=== PATIENT | female | born 1950 | race Caucasian/White ===

== ENCOUNTER → 2016-07-10 | Outpatient (CLI) | payer OTHER ==
[~2016-07-10] MED LIST: ANT25 PEG; ANT25 PO; ATV/2 PO; ATV2 PO; BUPRTAB51 PO; HYDR-4322 PO; LAMO100T16 PO; ONDA4TAB9 PO
[2016-07-10 14:45] LABS: HEMATOCRIT 37.3 % (37-47); MEAN CORPUSCULAR HEMOGLOBIN 29.6 pg (25-34); MEAN CORPUSCULAR HGB CONC 34.9 g/dl (32-36); MEAN PLATELET VOLUME 8.9 fL (7.4-10.4); PLATELET COUNT 342 K/uL (130-400); RED BLOOD COUNT 4.39 M/uL (4.2-5.4); WHITE BLOOD COUNT 4.41 K/uL (4.8-10.8)
[2016-07-10 15:20] LABS: ALT/SGPT 60 U/L (12-78); AST/SGOT 49 U/L (15-37)
== END | disposition home or self-care (01) ==
LOC: C.LAB1850 12:40
PROVIDERS: ATTEND Internal Medicine
DX: R10.32 Left lower quadrant pain (principal)

== ENCOUNTER → 2016-07-30 | Outpatient (CLI) | payer OTHER ==
[~2016-07-30] MED LIST changes: +LAMO200T38 PO; +RIBO50TA4 PO
--- NOTE | 2016-07-30 13:51 | DIAGNOSTIC IMAGING REPORT ---
CT SCAN OF THE ABDOMEN AND PELVIS WITHOUT IV CONTRAST CLINICAL HISTORY: Left lower quadrant abdominal pain. COMPARISON STUDY: Abdominal CT dated 12/01/2015. TECHNIQUE: CT scan of the abdomen and pelvis is performed from the lung bases to the proximal femora. Images are reviewed in the axial, sagittal, and coronal planes. IV contrast was not administered for this examination as per the referring clinician. Note that the examination was performed in suboptimal fashion without oral and IV contrast. Automated dose control exposure was utilized. CT DOSE: 270.81 mGycm FINDINGS: Lung bases: The heart is normal in size and without pericardial effusion. Pacemaker leads are noted on the caramel cutter hand tomogram. The lung bases are clear. Liver: The unenhanced liver is normal in size, contour, and attenuation. There is no intrahepatic biliary ductal dilatation. Gallbladder: Unremarkable. Spleen: Normal in size and attenuation. Pancreas: Unremarkable. Adrenal glands: Unremarkable. Kidneys: The unenhanced kidneys are normal in size and without hydronephrosis. There are no renal calculi identified. There is no evidence of contour deforming renal mass lesion. Abdominal vasculature: The abdominal aorta is normal in course and caliber noting mild atherosclerotic calcification. Bowel: The small bowel and colon are normal in course and caliber. There is mild colonic diverticulosis without CT evidence of acute diverticulitis. Moderate colonic fecal retention is observed. The appendix is not identified and reported surgically absent. Peritoneum: There is no intraperitoneal free air or abdominal ascites. There is a small fat-containing umbilical hernia. Lymphadenopathy: None. Pelvic viscera: Although partially compressed, the bladder wall appears mildly thickened. The uterus is surgically absent. No adnexal lesion is seen. There are calcified flow was in the pelvis. A granuloma is noted in the left gluteal soft tissues. Skeletal structures: The skeletal structures are osteopenic. There are bilateral pars defects at L5 with 8 mm anterolisthesis and moderate degenerative change at L5-S1. No lytic or blastic lesions are seen. IMPRESSION: 1. Suboptimal examination without oral and IV contrast. 2. Although decompressed, the bladder appears mildly thick walled. Cortical clinically and with urinalysis for evidence of cystitis. 3. Mild colonic diverticulosis without CT evidence of acute diverticulitis. 4. Moderate constipation. 5. Additional findings as above. Electronically signed by: Johnie Guillermo M.D. 07/30/2016 1:50 PM Dictated Date/Time: 07/30/2016 1:44 PM
== END | disposition home or self-care (01) ==
LOC: C.CTS 13:02
PROVIDERS: ATTEND Physician Assistant
DX: R10.32 Left lower quadrant pain (principal); K59.00 Constipation, unspecified

== ENCOUNTER 2016-08-16 13:39 | Emergency (ER) | payer OTHER ==
[~2016-08-16] VITALS: Ht 152.4 cm; Wt 52.8 kg
[~2016-08-16 13:39] MED LIST changes: -ANT25 PEG; -ANT25 PO; -ATV2 PO; -BUPRTAB51 PO; -HYDR-4322 PO; -LAMO100T16 PO; -LAMO200T38 PO; -ONDA4TAB9 PO; -RIBO50TA4 PO
[2016-08-16 13:48] VITALS: TEMP 36.5; Ht 152.4 cm; Wt 52.8 kg
[2016-08-16] MEDS ORDERED: LORAZEPAM 2 MG/ML 1 ML VIAL IV STA (13:55)
[2016-08-16 14:12] VITALS: O2SAT 100
[2016-08-16 14:15] LABS: BASO % 0.5 %; BASO ABS # 0.02 K/uL (0-0.2); COMPLETE YES; EOS % 4.4 %; HEMATOCRIT 36.2 % (37-47); LYMPH ABS # 1.53 K/uL (1.2-3.4); MEAN CELL VOLUME 85.2 fL (80-100); MEAN CORPUSCULAR HEMOGLOBIN 29.4 pg (25-34); MEAN CORPUSCULAR HGB CONC 34.5 g/dl (32-36); MEAN PLATELET VOLUME 8.4 fL (7.4-10.4); MONO % 20.6 %; NEUT % 36.5 %; PLATELET COUNT 382 K/uL (130-400); RED BLOOD COUNT 4.25 M/uL (4.2-5.4); WHITE BLOOD COUNT 4.13 K/uL (4.8-10.8)
--- NOTE | 2016-08-16 14:21 | DIAGNOSTIC IMAGING REPORT ---
SINGLE VIEW CHEST CLINICAL HISTORY: Atypical chest pain. Dyspnea. FINDINGS: An AP, portable, upright chest radiograph is compared to study dated 03/25/2016. The examination is mildly degraded by portable technique and patient rotation. The heart is top normal for projection. The pulmonary vasculature is noncongested. The lungs and pleural spaces are clear. No pneumothorax is seen. The skeletal structures are osteopenic. The bony thorax is grossly intact. IMPRESSION: No acute cardiopulmonary abnormality. Electronically signed by: Johnie Guillermo M.D. 08/16/2016 2:19 PM Dictated Date/Time: 08/16/2016 2:18 PM
[2016-08-16 14:24] LABS: PROTHROMBIN TIME (PATIENT) 10.4 SECONDS (9.0-12.0)
[2016-08-16 14:39] LABS: BUN/CREATININE RATIO 12.2 (10-20); CREATININE 0.72 mg/dl (0.60-1.20); MAGNESIUM 2.2 mg/dl (1.8-2.4); POTASSIUM 3.7 mmol/L (3.5-5.1)
[2016-08-16 14:50] LABS: ALB/GLOB RATIO 1.3 (0.9-2); THYROID STIMULATING HORMONE 2.47 uIu/ml (0.300-4.500)
[2016-08-16 14:54] LABS: CALCIUM 9.4 mg/dl (8.5-10.1)
[2016-08-16 14:59] LABS: URINE APPEARANCE CLOUDY (CLEAR); URINE BILIRUBIN NEG (NEG); URINE COLOR YELLOW; URINE NITRITE NEG (NEG); URINE PH 8.5 (4.5-7.5); URINE SPECIFIC GRAVITY 1.008 (1.000-1.030); UROBILINOGEN NEG (NEG); ZZUR CULT IF INDIC CLEAN CATCH NO
[2016-08-16 15:08] LABS: MANUAL MICROSCOPIC REQUIRED? NO; REVIEW REQ? NO
--- NOTE | 2016-08-16 16:44 | EMERGENCY ROOM VISIT NOTE ---
ED Visit Note First contact with patient: 16:41 I have personally evaluated this patient examined her and reviewed the pertinent labs and data. I have discussed the case with Héctor Mendoza, the physician surveyor instrument assistant and agree with the plan. Please refer to the PA note This patient comes in as described above. She's been having dizziness and palpitations for quite some time it got worse today. She has been seen recently by her beeswax bleacher and schedule for a stress test on Saturday. We did extensive workup here. Her EKG shows a paced rhythm but nothing that suggest ischemic changes.. She had this normal cardiac enzymes. She has no significant electrolyte or metabolic abnormalities. She has remained stable. We did discuss the case with her beeswax bleacher, Dr. Sykes, saw her in the emergency department feels that she can go home if she is feeling right. The patient is going to eat and ambulate and feeling well she will be discharged home with close follow-up with her beeswax bleacher.
[2016-08-16] MEDS ORDERED: ACETAMINOPHEN 500 MG TAB PO STA (16:58)
[2016-08-16] MEDS ORDERED: IBUPROFEN 600 MG TAB PO STA (16:58)
--- NOTE | 2016-08-16 17:03 | EMERGENCY ROOM VISIT NOTE ---
History First contact with patient: 13:46 Chief Complaint: CARDIAC ASSESSMENT Stated Complaint: CHEST PAIN, SHORT OF BREATH History of Present Illness The patient is a 66 year old female who presents to the Emergency Room with complaints of shortness of breath and chest pain that began when she woke up this morning. The patient states that she has had symptoms like this for roughly the past 13 or 14 months. When she wakes in the morning she has these episodes of shortness of breath and dizziness. She states that they have been worsening over the past several months, and today she felt numbness into her bilateral hands and bilateral feet. This was different from normal, causing her to contact EMS. The patient has an extensive cardiac history including CAD , bradycardia, and syncope. Because of this she had a pacemaker placed in [facility] 6 years ago. She has an upcoming appointment with cardiology in 5 days for stress testing. The patient did get aspirin from EMS prior to arrival. She was also given Zofran as she complains of nausea. The patient does not have new medications. She does have a history of anxiety. She rates her current discomfort a 5/10. She has not taken anything additional for her symptoms. Review of Systems More than 10 systems were reviewed and otherwise negative with the exception of history of present illness. Past Medical/Surgical History Medical Problems: (1) Abdominal hysterectomy (2) ANXIETY STATE NOS (3) AORTOCORONARY BYPASS (4) ASTHMA, UNSPECIFIED (5) Chest pressure (6) Coronary artery disease (7) DEPRESS DISORDER-UNSPEC (8) HYPERTENSION NOS (9) Implantation of cardiac pacemaker (10) Tonsillectomy Family History Cancer FH: CAD (coronary artery disease) FHx: kidney disease Social History Smoking Status: Former Smoker Alcohol Use: occasionally Drug Use: none Housing Status: lives alone Occupation Status: employed Current/Historical Medications Scheduled Bupropion Hcl (Wellbutrin Xl), 300 MG PO DAILY Lamotrigine (Lamictal), 200 MG PO BID Scheduled PRN Hydralazine HCl (Hydralazine HCl), 5-10 MG PO Q6 PRN for BLOOD PRESSURE Lorazepam (Ativan), 2 MG PO QID PRN for Anxiety Ondansetron (Ondansetron HCl), 1-2 TABS PO Q6 PRN for Nausea or Vomiting Allergies Coded Allergies: Lactose (Verified Allergy, Intermediate, GI UPSET, DIARRHEA, INTESTINAL PAIN, 08/16/16) Metronidazole (Verified Allergy, Unknown, ., 08/16/16) Moxifloxacin (Verified Allergy, Unknown, unnknown, 08/16/16) Nitroglycerin (Verified Allergy, Unknown, SEVERE HYPOTENSION, 08/16/16) Penicillins (Verified Allergy, Unknown, 08/16/16) Promethazine (Verified Allergy, Unknown, hallucinations, 08/16/16) Soy Allergy (Verified Allergy, Unknown, ANAPHYLAXIS, 08/16/16) Physical Exam Vital Signs Date Time Temp Pulse Resp B/P Pulse Ox O2 Delivery O2 Flow Rate FiO2 08/16/16 18:13 68 20 148/85 97 08/16/16 16:21 64 158/82 94 Room Air 08/16/16 14:38 64 20 172/93 100 08/16/16 14:24 83 08/16/16 14:12 100 Nasal Cannula 3.0 08/16/16 13:48 36.5 65 150/83 100 Nasal Cannula 3.0 08/16/16 13:48 94 Room Air Physical Exam VITALS: Vitals are noted on the nurse's note and reviewed by myself. Vital signs stable. GENERAL: Well-developed, well-nourished, anxious white female who is cooperative with the examination. HEAD: Normocephalic atraumatic. HEART: Regular rate and rhythm without murmurs gallops or rubs. LUNGS: Clear to auscultation bilaterally without wheezes, rales or rhonchi. No retractions or accessory muscle use. ABDOMEN: Positive normal bowel sounds x 4. Soft, nontender, without masses or organomegaly. No guarding or rebound tenderness. MUSCULOSKELETAL: No muscle atrophy, erythema, or edema noted. Full range of motion without joint tenderness in all extremities. NEURO: Patient was alert and oriented to person place and time. CN II through XII grossly intact. Medical Decision & Procedures ER Provider Diagnostic Interpretation: SINGLE VIEW CHEST CLINICAL HISTORY: Atypical chest pain. Dyspnea. FINDINGS: An AP, portable, upright chest radiograph is compared to study dated 03/25/2016. The examination is mildly degraded by portable technique and patient rotation. The heart is top normal for projection. The pulmonary vasculature is noncongested. The lungs and pleural spaces are clear. No pneumothorax is seen. The skeletal structures are osteopenic. The bony thorax is grossly intact. IMPRESSION: No acute cardiopulmonary abnormality. Laboratory Results 08/16/16 13:30 Red Blood Count 4.25, Mean Corpuscular Volume 85.2, Mean Corpuscular Hemoglobin 29.4, Mean Corpuscular Hemoglobin Concent 34.5, Mean Platelet Volume 8.4, Neutrophils (%) (Auto) 36.5, Lymphocytes (%) (Auto) 37.0, Monocytes (%) (Auto) 20.6, Eosinophils (%) (Auto) 4.4, Basophils (%) (Auto) 0.5, Neutrophils # (Auto ) 1.51, Lymphocytes # (Auto) 1.53, Monocytes # (Auto) 0.85, Eosinophils # (Auto ) 0.18, Basophils # (Auto) 0.02 08/16/16 13:30 Test 08/16/16 13:30 08/16/16 14:02 08/16/16 14:35 White Blood Count 4.13 K/uL (4.8-10.8) Red Blood Count 4.25 M/uL (4.2-5.4) Hemoglobin 12.5 g/dL (12.0-16.0) Hematocrit 36.2 % (37-47) Mean Corpuscular Volume 85.2 fL (80-100) Mean Corpuscular Hemoglobin 29.4 pg (25-34) Mean Corpuscular Hemoglobin Concent 34.5 g/dl (32-36) Platelet Count 382 K/uL (130-400) Mean Platelet Volume 8.4 fL (7.4-10.4) Neutrophils (%) (Auto) 36.5 % Lymphocytes (%) (Auto) 37.0 % Monocytes (%) (Auto) 20.6 % Eosinophils (%) (Auto) 4.4 % Basophils (%) (Auto) 0.5 % Neutrophils # (Auto) 1.51 K/uL (1.4-6.5) Lymphocytes # (Auto) 1.53 K/uL (1.2-3.4) Monocytes # (Auto) 0.85 K/uL (0.11-0.59) Eosinophils # (Auto) 0.18 K/uL (0-0.5) Basophils # (Auto) 0.02 K/uL (0-0.2) RDW Standard Deviation 44.2 fL (36.4-46.3) RDW Coefficient of Variation 14.1 % (11.5-14.5) Immature Granulocyte % (Auto) 1.0 % Immature Granulocyte # (Auto) 0.04 K/uL (0.00-0.02) Prothrombin Time 10.4 SECONDS (9.0-12.0) Prothromb Time International Ratio 1.0 (0.9-1.1) Activated Partial Thromboplast Time 26.9 SECONDS (21.0-31.0) Partial Thromboplastin Ratio 1.0 Anion Gap 7.0 mmol/L (3-11) Est Creatinine Clear Calc Drug Dose 56.0 ml/min Estimated GFR () 101.9 Estimated GFR (Non- 87.9 BUN/Creatinine Ratio 12.2 (10-20) Calcium Level 9.4 mg/dl (8.5-10.1) Magnesium Level 2.2 mg/dl (1.8-2.4) Total Bilirubin 0.5 mg/dl (0.2-1) Aspartate Amino Transf (AST/SGOT) 29 U/L (15-37) Alanine Aminotransferase (ALT/SGPT) 47 U/L (12-78) Alkaline Phosphatase 314 U/L (45-117) Total Protein 7.0 gm/dl (6.4-8.2) Albumin 4.0 gm/dl (3.4-5.0) Globulin 3.0 gm/dl (2.5-4.0) Albumin/Globulin Ratio 1.3 (0.9-2) Lipase 105 U/L (73-393) Thyroid Stimulating Hormone (TSH) 2.470 uIu/ml (0.300-4.500) Bedside Troponin I 0.000 ng/ml (0-0.045) Urine Color YELLOW Urine Appearance CLOUDY (CLEAR) Urine pH 8.5 (4.5-7.5) Urine Specific [place] 1.008 (1.000-1.030) Urine Protein NEG (NEG) Urine Glucose (UA) NEG (NEG) Urine Ketones NEG (NEG) Urine Occult Blood NEG (NEG) Urine Nitrite NEG (NEG) Urine Bilirubin NEG (NEG) Urine Urobilinogen NEG (NEG) Urine Leukocyte Esterase NEG (NEG) Urine WBC (Auto) 0 /hpf (0-5) Urine RBC (Auto) 0-4 /hpf (0-4) Urine Hyaline Casts (Auto) 0 /lpf (0-5) Urine Epithelial Cells (Auto) 5-10 /lpf (0-5) Urine Bacteria (Auto) NEG (NEG) Medications Administered Medications (Trade) Dose Ordered Sig/Trip Route Start Time Stop Time Status Last Admin Dose Admin Lorazepam (Ativan Inj) 1 mg NOW STAT IV 08/16/16 13:55 08/16/16 13:57 DC 08/16/16 14:24 1 MG Ibuprofen (Motrin Tab) 600 mg NOW STAT PO 08/16/16 16:58 08/16/16 16:59 DC 08/16/16 17:03 600 MG Ondansetron HCl (Zofran Odt) 4 mg NOW STAT PO 08/16/16 17:55 08/16/16 17:56 DC 08/16/16 18:02 4 MG ECG Change: AV dual-paced rhythm with prolonged AV conduction and pseudofusion @113bpm Abnormal ECG When compared with ECG of 06-JAN-2016 00:56, Electronic ventricular pacemaker has replaced Sinus rhythm Vent. rate has increased BY 49 BPM Confirmed by Tab Sykes ([id number]) on 08/16/2016 4:38:08 PM ED Course Physical exam and history were performed. Nursing notes and EMR were reviewed. Patient appears to have vague chest pain and shortness of breath symptoms off- and-on for the past several months. The patient is very anxious appearing on examination. EKG was performed and was a paced tachycardia without ST elevation or evidence of ischemia. IV access was established and labs were obtained. The patient was placed on the telemetry monitor and given IV Ativan for her symptoms. The patient's blood work is as above and was reviewed. She does not have a significantly elevated white blood cell count, worsening anemia , bandemia, or significant electrolyte imbalance. Lipase and transaminases are not diagnostic. Troponin 1 is negative. Chest x-ray did not show acute findings. The patient did remain in normal sinus rhythm with occasional tachycardia while on the telemetry monitor. I discussed options of care with the patient, including the option of admission to the hospital. The patient voiced a desire to go home, as she was feeling very reassured after having an essentially negative workup. Prior to discharge I elected to discuss the case with cardiology, Dr Sykes, who did evaluate the patient here in the emergency department. Dr Sykes felt the patient had appropriate outpatient services, and did make a minor adjustment to her pacemaker. She was felt to be stable for discharge home, which appears reasonable. I additionally discussed the case with my attending physician, Dr. Fonseca, who also independently evaluated the patient. The patient was asked to keep her upcoming appointments with cardiology and continue your at-home medications. The patient was given food and drink here in the department, and was able to ambulate without difficulty. She did report some mild headache and nausea, which is been ongoing for some time. She requested ibuprofen and Tylenol which was provided. She was also given oral Zofran. Her subjective symptoms seem to have completely resolved at this time. She was invited back to the ER with any new, worsening, or concerning episodes. The chart was completed utilizing [employer] Speech Voice Recognition Software. Grammatical errors, random word insertions, pronoun errors, and incomplete sentences are an occasional consequence of this system due to software limitations, ambient noise, and hardware issues. Any formal questions or concerns about the content, text, or information contained within the body of this dictation should be directly addressed to the provider for clarification. . Medical Decision Differential diagnosis includes, but is not limited to: Myocardial infarction, dysrhythmia, pericarditis, pneumothorax, aortic aneurysm/dissection, DVT/PE, anxiety, GERD, PUD, electrolyte imbalance, thyroid disorder, pneumonia, bronchitis, pancreatitis, and others Impression Primary Impression: Central chest pain Additional Impression: Shortness of breath Departure Information Dispostion Home / Self-Care Condition GOOD Forms IMPORTANT VISIT INFORMATION Patient Instructions [facility] Additional Instructions You were seen and evaluated today on an emergency basis only. This is not a substitute for, or an effort to provide, complete comprehensive medical care. It is not possible to recognize and treat all injuries or illnesses in a single emergency department visit. For this reason it is recommended that you followup with Cardiology as scheduled on Saturday for ongoing care and evaluation. Continue your medications as previously prescribed. You are welcome to return to the emergency department anytime with new, worsening, or concerning symptoms. Problem Qualifiers
[2016-08-16] MEDS ORDERED: ONDANSETRON 4MG OD TAB PO STA (17:55)
[2016-08-16 18:13] VITALS: BP 148/85; PULSE 68; O2SAT 97
[2016-10-15] MEDS ORDERED: BUPRTAB51 PO (02:41)
[2016-10-15] MEDS ORDERED: HYDR-2977 PO (14:13)
[2016-10-15] MEDS ORDERED: ONDA4TAB9 PO (14:47)
[2016-10-15] MEDS ORDERED: LAMO100T16 PO (14:55)
== END 2016-08-16 18:18 | disposition home or self-care (01) ==
LOC: EDBD 13:39 → C.EDA 13:42
DX: R07.9 Chest pain, unspecified (principal); R06.02 Shortness of breath; R42 Dizziness and giddiness; R20.0 Anesthesia of skin; F41.9 Anxiety disorder, unspecified; F32.9 Major depressive disorder, single episode, unspecified; I25.10 Atherosclerotic heart disease of native coronary artery without angina pectoris; I10 Essential (primary) hypertension; J45.909 Unspecified asthma, uncomplicated; Z95.0 Presence of cardiac pacemaker; Z79.899 Other long term (current) drug therapy; Z87.891 Personal history of nicotine dependence; Z82.49 Family history of ischemic heart disease and other diseases of the circulatory system; Z84.1 Family history of disorders of kidney and ureter

== ENCOUNTER 2016-10-15 17:06 | Emergency (ER) | payer OTHER ==
[~2016-10-15] VITALS: Ht 152.4 cm; Wt 53.7 kg
[~2016-10-15 17:06] MED LIST changes: +BUPRTAB51 PO; +HYDR-2977 PO; +LAMO100T16 PO; +ONDA4TAB9 PO
[2016-10-15 17:27] VITALS: TEMP 36.8; Ht 152.4 cm; Wt 53.7 kg
[2016-10-15 17:32] VITALS: O2SAT 99
--- NOTE | 2016-10-15 17:39 | DIAGNOSTIC IMAGING REPORT ---
CHEST ONE VIEW PORTABLE CLINICAL HISTORY: Altered mental status. Weakness. COMPARISON STUDY: Chest radiograph August 16, 2016. FINDINGS: A dual lead left subclavian pacemaker is noted. Leads are unchanged in position. Cardiac size is at the upper limits of normal. There is no evidence of pulmonary edema. No pneumothorax or pleural effusion is present. There is no consolidation to suggest pneumonia. IMPRESSION: No acute cardiopulmonary findings. Electronically signed by: Arjun Nelson M.D. 10/15/2016 5:38 PM Dictated Date/Time: 10/15/2016 5:37 PM
--- NOTE | 2016-10-15 17:42 | DIAGNOSTIC IMAGING REPORT ---
CT OF THE HEAD WITHOUT CONTRAST CLINICAL HISTORY: Altered mental status. Weakness. COMPARISON STUDY: Head CT January 06, 2016. CT DOSE: 687.98 mGy.cm TECHNIQUE: Helical axial images of the head were obtained without IV contrast. Automated exposure control was utilized for the study. FINDINGS: No acute intracranial hemorrhage, midline shift or mass effect is present. Mild ventricular dilatation is unchanged. Basilar cisterns are patent. There are no extra-axial collections. White matter hypodensity suggests small vessel disease. There is an old lacunar infarct within the anterior limb of the right internal capsule. There are no findings to suggest acute dural sinus thrombosis or acute territorial infarct. There is no calvarial fracture. Visualized portions of the sinuses and mastoid air cells are clear. IMPRESSION: No acute intracranial findings. Electronically signed by: Arjun Nelson M.D. 10/15/2016 5:41 PM Dictated Date/Time: 10/15/2016 5:38 PM
--- NOTE | 2016-10-15 17:43 | EMERGENCY ROOM VISIT NOTE ---
History Report prepared by Moe: Cory Oshea Under the Supervision of: Dr. Taco Mckeon D.O. First contact with patient: 17:10 Chief Complaint: ALLERGIC REACTION Stated Complaint: ALLERGIC REACTION History of Present Illness The patient is a 66 year old female who presents to the Emergency Room with complaints of persistent dizziness beginning seven hours ago. She also complains of shortness of breath, unsteadiness, arm tingling, and chest pressure. She was seen by her PCP for her symptoms and was placed on an scopolamine patch today. The patient states that she was laying on the couch when her symptoms began. She states that she was laying on the couch all day because she of her dizziness. She has taken Meclizine for her dizziness. The patient denies any headaches, abdominal pain, back pain, or leg swelling. She does not know what time her additional symptoms began. She notes that her right eye that is "problematic" and causes her dizziness, so she often wears an eye- patch. The patient states that her speech is not normal right now. She states that she has been having periodic difficulties with double vision recently as well. Source of History: patient Onset: 7 hours ago Quality: other (allergic reaction) Timing: worsening Associated Symptoms: + chest pain, + SOB, No headache, No abdominal pain, No back pain Note: The patient denies any leg swelling. She also complains of periodic double vision, unsteadiness, and arm tingling. Review of Systems See HPI for pertinent positives & negatives. A total of 10 systems reviewed and were otherwise negative. Past Medical & Surgical Medical Problems: (1) Abdominal hysterectomy (2) ANXIETY STATE NOS (3) AORTOCORONARY BYPASS (4) ASTHMA, UNSPECIFIED (5) Chest pressure (6) Coronary artery disease (7) DEPRESS DISORDER-UNSPEC (8) HYPERTENSION NOS (9) Implantation of cardiac pacemaker (10) Tonsillectomy Family History Cancer FH: CAD (coronary artery disease) FHx: kidney disease Social History Smoking Status: Former Smoker Alcohol Use: occasionally Drug Use: none Housing Status: lives alone Occupation Status: employed Current/Historical Medications Scheduled Bupropion Hcl (Wellbutrin Xl), 300 MG PO QAM Lamotrigine (Lamictal), 200 MG PO BID Meclizine HCl (Meclizine HCl), 50 MG PO QAM Scheduled PRN Hydralazine HCl (Hydralazine HCl), 5-10 MG PO Q6H PRN for Hypertension Lorazepam (Lorazepam), 2 MG PO QID PRN for Anxiety Meclizine HCl (Meclizine HCl), 25 MG PEG Q6H PRN for Dizziness or Vertigo Ondansetron (Ondansetron HCl), 4-8 MG PO Q6H PRN for Nausea or Vomiting Allergies Coded Allergies: Lactose (Verified Allergy, Intermediate, GI UPSET, DIARRHEA, INTESTINAL PAIN, 08/16/16) Metronidazole (Verified Allergy, Unknown, ., 08/16/16) Moxifloxacin (Verified Allergy, Unknown, unnknown, 08/16/16) Nitroglycerin (Verified Allergy, Unknown, SEVERE HYPOTENSION, 08/16/16) Penicillins (Verified Allergy, Unknown, 08/16/16) Promethazine (Verified Allergy, Unknown, hallucinations, 08/16/16) Soy Allergy (Verified Allergy, Unknown, ANAPHYLAXIS, 08/16/16) Physical Exam Vital Signs Date Time Temp Pulse Resp B/P (MAP) Pulse Ox O2 Delivery O2 Flow Rate FiO2 10/15/16 19:35 71 18 154/88 98 Room Air 10/15/16 19:12 80 18 98 Room Air 10/15/16 18:57 140/86 10/15/16 18:27 70 16 188/104 99 Room Air 10/15/16 18:06 64 25 10/15/16 18:05 67 196/92 70 198/109 10/15/16 18:02 198/109 10/15/16 18:00 196/92 10/15/16 17:51 64 20 99 10/15/16 17:39 198/107 10/15/16 17:32 99 Room Air 10/15/16 17:27 36.8 65 18 206/111 99 Room Air 10/15/16 17:27 100 Room Air 10/15/16 17:23 65 10/15/16 17:21 63 21 99 10/15/16 17:14 206/111 Physical Exam GENERAL: Patient is awake and alert. Mildly anxious appearing but does not appear to be in pain. EYES: The conjunctivae are clear. The pupils are round and reactive. EARS, NOSE, MOUTH AND THROAT: The nose is without any evidence of any deformity. Mucous membranes are moist tongue is midline NECK: The neck is nontender and supple. RESPIRATORY: Normal respiratory effort is noted there is no evidence of wheezing rhonchi or rales CARDIOVASCULAR: Regular rate and rhythm noted there no murmurs rubs or gallops normal S1 normal S2 GASTROINTESTINAL: The abdomen is soft. Bowel sounds are present in all quadrants. Abdomen is nontender MUSCULOSKELETAL/EXTREMITIES: There is no evidence of gross deformity full range of motion is noted in the hips and shoulders SKIN: There is no obvious evidence of any rash. There are no petechiae, pallor or cyanosis noted. NEUROLOGIC: Patient is awake alert and oriented x3. Speech was stuttering in nature but understandable. Patellar reflexes 2+ bilaterally. No drift noted. Medical Decision & Procedures ER Provider Diagnostic Interpretation: Radiology results as stated below per my review and radiologist interpretation: CT OF THE HEAD WITHOUT CONTRAST FINDINGS: No acute intracranial hemorrhage, midline shift or mass effect is present. Mild ventricular dilatation is unchanged. Basilar cisterns are patent. There are no extra-axial collections. White matter hypodensity suggests small vessel disease. There is an old lacunar infarct within the anterior limb of the right internal capsule. There are no findings to suggest acute dural sinus thrombosis or acute territorial infarct. There is no calvarial fracture. Visualized portions of the sinuses and mastoid air cells are clear. IMPRESSION: No acute intracranial findings. Electronically signed by: Arjun Nelson M.D. CHEST ONE VIEW PORTABLE FINDINGS: A dual lead left subclavian pacemaker is noted. Leads are unchanged in position. Cardiac size is at the upper limits of normal. There is no evidence of pulmonary edema. No pneumothorax or pleural effusion is present. There is no consolidation to suggest pneumonia. IMPRESSION: No acute cardiopulmonary findings. Electronically signed by: Arjun Nelson M.D. Laboratory Results 10/15/16 17:48 Red Blood Count 4.38, Mean Corpuscular Volume 87.9, Mean Corpuscular Hemoglobin 29.7, Mean Corpuscular Hemoglobin Concent 33.8, Mean Platelet Volume 8.7, Neutrophils (%) (Auto) 55.1, Lymphocytes (%) (Auto) 23.9, Monocytes (%) (Auto) 13.0, Eosinophils (%) (Auto) 7.0, Basophils (%) (Auto) 0.6, Neutrophils # (Auto ) 2.68, Lymphocytes # (Auto) 1.16, Monocytes # (Auto) 0.63, Eosinophils # (Auto ) 0.34, Basophils # (Auto) 0.03 10/15/16 18:38 Test 10/15/16 00:00 10/15/16 17:45 10/15/16 17:48 10/15/16 18:38 Urine Color YELLOW Urine Appearance CLEAR (CLEAR) Urine pH 8.0 (4.5-7.5) Urine Specific [place] 1.009 (1.000-1.030) Urine Protein NEG (NEG) Urine Glucose (UA) NEG (NEG) Urine Ketones NEG (NEG) Urine Occult Blood NEG (NEG) Urine Nitrite NEG (NEG) Urine Bilirubin NEG (NEG) Urine Urobilinogen NEG (NEG) Urine Leukocyte Esterase NEG (NEG) Bedside Glucose 78 mg/dl (70-90) White Blood Count 4.86 K/uL (4.8-10.8) Red Blood Count 4.38 M/uL (4.2-5.4) Hemoglobin 13.0 g/dL (12.0-16.0) Hematocrit 38.5 % (37-47) Mean Corpuscular Volume 87.9 fL (80-100) Mean Corpuscular Hemoglobin 29.7 pg (25-34) Mean Corpuscular Hemoglobin Concent 33.8 g/dl (32-36) Platelet Count 303 K/uL (130-400) Mean Platelet Volume 8.7 fL (7.4-10.4) Neutrophils (%) (Auto) 55.1 % Lymphocytes (%) (Auto) 23.9 % Monocytes (%) (Auto) 13.0 % Eosinophils (%) (Auto) 7.0 % Basophils (%) (Auto) 0.6 % Neutrophils # (Auto) 2.68 K/uL (1.4-6.5) Lymphocytes # (Auto) 1.16 K/uL (1.2-3.4) Monocytes # (Auto) 0.63 K/uL (0.11-0.59) Eosinophils # (Auto) 0.34 K/uL (0-0.5) Basophils # (Auto) 0.03 K/uL (0-0.2) RDW Standard Deviation 47.0 fL (36.4-46.3) RDW Coefficient of Variation 14.5 % (11.5-14.5) Immature Granulocyte % (Auto) 0.4 % Immature Granulocyte # (Auto) 0.02 K/uL (0.00-0.02) Prothrombin Time 10.2 SECONDS (9.0-12.0) Prothromb Time International Ratio 1.0 (0.9-1.1) Activated Partial Thromboplast Time 26.9 SECONDS (21.0-31.0) Partial Thromboplastin Ratio 1.0 Anion Gap 11.0 mmol/L (3-11) Est Creatinine Clear Calc Drug Dose 66.0 ml/min Estimated GFR () 110.3 Estimated GFR (Non- 95.1 BUN/Creatinine Ratio 16.3 (10-20) Calcium Level 8.7 mg/dl (8.5-10.1) Phosphorus Level 2.8 mg/dl (2.5-4.9) Magnesium Level 2.1 mg/dl (1.8-2.4) Total Bilirubin 0.6 mg/dl (0.2-1) Direct Bilirubin 0.2 mg/dl (0-0.2) Aspartate Amino Transf (AST/SGOT) 59 U/L (15-37) Alanine Aminotransferase (ALT/SGPT) 87 U/L (12-78) Alkaline Phosphatase 357 U/L (45-117) Total Creatine Kinase 132 U/L (26-192) Creatine Kinase MB 1.1 ng/ml (0.5-3.6) Creatine Kinase MB Ratio 0.8 (0-3.0) Troponin I < 0.015 ng/ml (0-0.045) Total Protein 7.4 gm/dl (6.4-8.2) Albumin 4.0 gm/dl (3.4-5.0) Lipase 118 U/L (73-393) Thyroid Stimulating Hormone (TSH) 1.370 uIu/ml (0.300-4.500) Laboratory results per my review. Medications Administered Medications (Trade) Dose Ordered Sig/Trip Route Start Time Stop Time Status Last Admin Dose Admin Hydralazine HCl (HydrALAZINE INJ) 10 mg NOW STAT IV. 10/15/16 18:16 10/15/16 18:17 DC 10/15/16 18:21 10 MG Lorazepam (Ativan Inj) 1 mg NOW STAT IV 10/15/16 18:24 10/15/16 18:25 DC 10/15/16 18:31 1 MG ECG Indication: other (dizziness) Rate (beats per minute): 66 Rhythm: normal sinus Findings: no ectopy, other (No acute ST segment abnormalities) Comparison ECG Date: August 16, 2016 ED Course 171: The patient was evaluated in room C7. A complete history and physical examination were performed. 1815: Ordered Hydralazine Inj 10 mg IV. 1823: Ordered Ativan Inj 1 mg IV. 1830: Upon reevaluation, the patient is resting comfortably. I discussed results and treatment plan with her. She verbalizes agreement and understanding. I spoke with Dr. Pierce of the [facility]. The patient will be evaluated for further management and care. 1930: The patient feels better and would like to go home rather than stay in the hospital. I discussed the results and treatment plan with the patient. She verbalized agreement of the treatment plan. She was discharged home. Medical Decision Differential diagnosis: Etiologies such as benign positional vertigo, dehydration, hypovolemia, anemia, tumor, infection, hypoglycemia, electrolyte abnormalities, cardiac sources, intracerebral event, toxicologic, neurologic, as well as others were entertained. Blood pressure screening: Patient was found to have an elevated blood pressure and was referred to their primary doctor for recheck and further treatment. Medication Reconciliation: I attest that I have personally reviewed the patient' s current medications list. The patient is a 66-year-old female who presented to the emergency department for possible allergic reaction. The patient states that she was started on a scopolamine patch today but also takes Antivert. She was unsure if she was having reaction to these medications. She had very significant shaking and numbness in her upper extremity's. The patient was unsure if she was having a stroke. She was treated by the academic adviser with steroids as well as aspirin. The patient was treated in our emergency department with hydralazine as well as Ativan. She had significant improvement of her symptoms. I discussed her case with the on-call [facility] hospitalist group. They've agreed to evaluate the patient in the emergency department for further management and disposition. After the patient was evaluated by the [facility] and her blood pressure improved she was feeling much better and wished to be discharged to home. She was encouraged to rest and avoid any strenuous activity. She was also encouraged to continue all medications as prescribed and return to the emergency department immediately if symptoms change worsen or the need arises. Consults Time Called: 1821 Consulting Physician: Dr. Pierce -[facility] Returned Call: 1825 I discussed the patient's case with Dr. Pierce. The patient will be evaluated for further management. Impression Primary Impression: Hypertensive encephalopathy Additional Impressions: Chest pain Vertigo Scribe Attestation The scribe's documentation has been prepared under my direction and personally reviewed by me in its entirety. I confirm that the note above accurately reflects all work, treatment, procedures, and medical decision making performed by me. Departure Information Dispostion Home / Self-Care Referrals RV. Winters MD (PCP) Forms HOME CARE DOCUMENTATION FORM, IMPORTANT VISIT INFORMATION Patient Instructions ED Vertigo Unspecified, Hypertension Control, My [facility] Additional Instructions Call your family in the morning to schedule a follow-up appointment. Continue to monitor your blood pressure. Start taking a baby aspirin every morning. Continue all other medications only as prescribed. Return to the emergency department immediately if symptoms change worsen or the need arises. Problem Qualifiers Additional Impressions: Chest pain Chest pain type: unspecified Qualified Codes: R07.9 - Chest pain, unspecified
[2016-10-15 18:00] LABS: BASO % 0.6 %; BASO ABS # 0.03 K/uL (0-0.2); COMPLETE YES; HEMATOCRIT 38.5 % (37-47); IG% 0.4 %; LYMPH % 23.9 %; LYMPH ABS # 1.16 K/uL (1.2-3.4); MEAN CELL VOLUME 87.9 fL (80-100); MEAN CORPUSCULAR HEMOGLOBIN 29.7 pg (25-34); MEAN CORPUSCULAR HGB CONC 33.8 g/dl (32-36); MEAN PLATELET VOLUME 8.7 fL (7.4-10.4); NEUT % 55.1 %; PLATELET COUNT 303 K/uL (130-400); RED BLOOD COUNT 4.38 M/uL (4.2-5.4); WHITE BLOOD COUNT 4.86 K/uL (4.8-10.8)
[2016-10-15] MEDS ORDERED: ATV2 PO (18:01)
[2016-10-15] MEDS ORDERED: ANT25 PO (18:01)
[2016-10-15] MEDS ORDERED: ANT25 PEG (18:08)
[2016-10-15] MEDS ORDERED: HydrALAZINE HCL 20 MG/ML VIAL IV. STA (18:16)
[2016-10-15] MEDS ORDERED: LORAZEPAM 2 MG/ML 1 ML VIAL IV STA (18:24)
[2016-10-15 18:30] LABS: URINE APPEARANCE CLEAR (CLEAR); URINE BILIRUBIN NEG (NEG); URINE COLOR YELLOW; URINE NITRITE NEG (NEG); URINE SPECIFIC GRAVITY 1.009 (1.000-1.030); UROBILINOGEN NEG (NEG)
[2016-10-15 18:34] LABS: MANUAL MICROSCOPIC REQUIRED? NO; REVIEW REQ? NO
[2016-10-15 19:00] LABS: PROTHROMBIN TIME (PATIENT) 10.2 SECONDS (9.0-12.0)
[2016-10-15 19:03] LABS: ALT/SGPT 87 U/L (12-78); AST/SGOT 59 U/L (15-37); BLOOD UREA NITROGEN 10 mg/dl (7-18); BUN/CREATININE RATIO 16.3 (10-20); CALCIUM 8.7 mg/dl (8.5-10.1); CARBON DIOXIDE 24 mmol/L (21-32); CHLORIDE 102 mmol/L (98-107); CREATININE 0.61 mg/dl (0.60-1.20); GLUCOSE 94 mg/dl (70-99); MAGNESIUM 2.1 mg/dl (1.8-2.4); POTASSIUM 3.9 mmol/L (3.5-5.1); SODIUM 137 mmol/L (136-145)
[2016-10-15 19:11] LABS: ALKALINE PHOSPHATASE 357 U/L (45-117); CKMB/CK RATIO 0.8 (0-3.0); PHOSPHORUS 2.8 mg/dl (2.5-4.9)
[2016-10-15 19:35] VITALS: BP 154/88; PULSE 71; O2SAT 98
--- NOTE | 2016-10-15 19:50 | History and Physical ---
History & Physical Date & Time of Service: Oct 15, 2016 at 19:22 Chief Complaint: Allergic Reaction Primary Care Physician: RV. Winters MD History of Present Illness ER Consultation Patient is a 66 year old female with a history of hypertension, coronary disease , vertigo, and multiple concussions that presents with an acute reaction to the use of a scopolamine patch. The patient was at home earlier this afternoon and was on the phone with her primary care doctor because of continued vertigo despite taking 3 doses of Meclizine. Her doctor instructed her to use her prescribed scopolamine patch. Immediately after applying the patch she felt chest pressure, tingling to both of her arms, and shortness of breath. She called the ambulance that brought her to the ED. She also was complaining of headache and began to have stuttered speech. After receiving Ativan in the ED and some Hydralazine for her elevated blood pressure she is feeling better and now only complains of some tingling to her hands bilaterally. She denies any more chest pain, headache, shortness of breath, abdominal pain, or changes in vision. She does have chronic diplopia and right eye pain for which she has an upcoming ophthalmology visit in [place]. Past Medical/Surgical History Medical Problems: (1) Abdominal hysterectomy Status: Resolved (2) ANXIETY STATE NOS Status: Chronic (3) AORTOCORONARY BYPASS Status: Chronic (4) ASTHMA, UNSPECIFIED Status: Chronic (5) Coronary artery disease Status: Chronic (6) DEPRESS DISORDER-UNSPEC Status: Chronic (7) HYPERTENSION NOS Status: Chronic (8) Implantation of cardiac pacemaker Status: Resolved (9) Tonsillectomy Status: Resolved Family History Cancer FH: CAD (coronary artery disease) FHx: kidney disease Social History Smoking Status: Former Smoker Drug Use: none Housing status: lives alone Occupational Status: employed Immunizations History of Influenza Vaccine: No History of Tetanus Vaccine?: No History of Pneumococcal: No History of Hepatitis B Vaccine: No Multi-Drug Resistant Organisms History of MDRO: No Allergies Coded Allergies: Lactose (Verified Allergy, Intermediate, GI UPSET, DIARRHEA, INTESTINAL PAIN, 08/16/16) Metronidazole (Verified Allergy, Unknown, ., 08/16/16) Moxifloxacin (Verified Allergy, Unknown, unnknown, 08/16/16) Nitroglycerin (Verified Allergy, Unknown, SEVERE HYPOTENSION, 08/16/16) Penicillins (Verified Allergy, Unknown, 08/16/16) Promethazine (Verified Allergy, Unknown, hallucinations, 08/16/16) Soy Allergy (Verified Allergy, Unknown, ANAPHYLAXIS, 08/16/16) Home Medications Scheduled Bupropion Hcl (Wellbutrin Xl), 300 MG PO QAM Lamotrigine (Lamictal), 200 MG PO BID Meclizine HCl (Meclizine HCl), 50 MG PO QAM Scheduled PRN Hydralazine HCl (Hydralazine HCl), 5-10 MG PO Q6H PRN for Hypertension Lorazepam (Lorazepam), 2 MG PO QID PRN for Anxiety Meclizine HCl (Meclizine HCl), 25 MG PEG Q6H PRN for Dizziness or Vertigo Ondansetron (Ondansetron HCl), 4-8 MG PO Q6H PRN for Nausea or Vomiting Review of Systems Constitutional: No fever, No chills, No sweats Eyes: + eye pain, + diplopia, No worsening of vision Respiratory: No shortness of breath Cardiovascular: No chest pain, No edema, No palpitations Abdomen: + nausea, No pain, No vomiting Genitourinary - Female: No dysuria Neurologic: + numbness/tingling, No weakness, No vertigo Endocrine: No fatigue, No excessive thirst Integumentary: No rash Physical Exam Vital Signs Date Time Temp Pulse Resp B/P (MAP) Pulse Ox O2 Delivery O2 Flow Rate FiO2 10/15/16 19:12 80 18 98 Room Air 10/15/16 18:57 140/86 10/15/16 18:27 70 16 188/104 99 Room Air 10/15/16 18:06 64 25 10/15/16 18:05 67 196/92 70 198/109 10/15/16 18:02 198/109 10/15/16 18:00 196/92 10/15/16 17:51 64 20 99 10/15/16 17:39 198/107 10/15/16 17:32 99 Room Air 10/15/16 17:27 36.8 65 18 206/111 99 Room Air 10/15/16 17:27 100 Room Air 10/15/16 17:23 65 10/15/16 17:21 63 21 99 10/15/16 17:14 206/111 General Appearance: WD/WN, no apparent distress Head: normocephalic, atraumatic Eyes: normal inspection, sclerae normal Neck: supple Respiratory/Chest: chest non-tender, lungs clear, normal breath sounds Cardiovascular: regular rate, rhythm, no edema, no gallop, no murmur Abdomen/GI: normal bowel sounds, non tender, soft Extremities/Musculoskelatal: normal inspection, no calf tenderness, no pedal edema Neurologic/Psych: alert, oriented x 3, + pertinent finding (stuttering speech) Skin: warm/dry, no rash Diagnostics Laboratory Results Results Past 24 Hours Test 10/15/16 00:00 10/15/16 17:17 10/15/16 17:45 10/15/16 17:48 Range/Units Urine Color YELLOW Urine Appearance CLEAR CLEAR Urine pH 8.0 4.5-7.5 Urine Specific [place] 1.009 1.000-1.030 Urine Protein NEG NEG Urine Glucose (UA) NEG NEG Urine Ketones NEG NEG Urine Occult Blood NEG NEG Urine Nitrite NEG NEG Urine Bilirubin NEG NEG Urine Urobilinogen NEG NEG Urine Leukocyte Esterase NEG NEG Creatine Kinase MB Ratio 0-3.0 Bedside Glucose 78 70-90 mg/dl White Blood Count 4.86 4.8-10.8 K/uL Red Blood Count 4.38 4.2-5.4 M/uL Hemoglobin 13.0 12.0-16.0 g/dL Hematocrit 38.5 37-47 % Mean Corpuscular Volume 87.9 80-100 fL Mean Corpuscular Hemoglobin 29.7 25-34 pg Mean Corpuscular Hemoglobin Concent 33.8 32-36 g/dl Platelet Count 303 130-400 K/uL Mean Platelet Volume 8.7 7.4-10.4 fL Neutrophils (%) (Auto) 55.1 % Lymphocytes (%) (Auto) 23.9 % Monocytes (%) (Auto) 13.0 % Eosinophils (%) (Auto) 7.0 % Basophils (%) (Auto) 0.6 % Neutrophils # (Auto) 2.68 1.4-6.5 K/uL Lymphocytes # (Auto) 1.16 1.2-3.4 K/uL Monocytes # (Auto) 0.63 0.11-0.59 K/uL Eosinophils # (Auto) 0.34 0-0.5 K/uL Basophils # (Auto) 0.03 0-0.2 K/uL RDW Standard Deviation 47.0 36.4-46.3 fL RDW Coefficient of Variation 14.5 11.5-14.5 % Immature Granulocyte % (Auto) 0.4 % Immature Granulocyte # (Auto) 0.02 0.00-0.02 K/uL Test 10/15/16 18:38 Range/Units Prothrombin Time 10.2 9.0-12.0 SECONDS Prothromb Time International Ratio 1.0 0.9-1.1 Activated Partial Thromboplast Time 26.9 21.0-31.0 SECONDS Partial Thromboplastin Ratio 1.0 Sodium Level 137 136-145 mmol/L Potassium Level 3.9 3.5-5.1 mmol/L Chloride Level 102 98-107 mmol/L Carbon Dioxide Level 24 21-32 mmol/L Anion Gap 11.0 3-11 mmol/L Blood Urea Nitrogen 10 7-18 mg/dl Creatinine 0.61 0.60-1.20 mg/dl Est Creatinine Clear Calc Drug Dose 66.0 ml/min Estimated GFR () 110.3 Estimated GFR (Non- 95.1 BUN/Creatinine Ratio 16.3 10-20 Random Glucose 94 70-99 mg/dl Calcium Level 8.7 8.5-10.1 mg/dl Phosphorus Level 2.8 2.5-4.9 mg/dl Magnesium Level 2.1 1.8-2.4 mg/dl Total Bilirubin 0.6 0.2-1 mg/dl Direct Bilirubin 0.2 0-0.2 mg/dl Aspartate Amino Transf (AST/SGOT) 59 15-37 U/L Alanine Aminotransferase (ALT/SGPT) 87 12-78 U/L Alkaline Phosphatase 357 45-117 U/L Total Creatine Kinase 132 26-192 U/L Creatine Kinase MB 1.1 0.5-3.6 ng/ml Creatine Kinase MB Ratio 0.8 0-3.0 Troponin I < 0.015 0-0.045 ng/ml Total Protein 7.4 6.4-8.2 gm/dl Albumin 4.0 3.4-5.0 gm/dl Lipase 118 73-393 U/L Thyroid Stimulating Hormone (TSH) 1.370 0.300-4.500 uIu/ml Normal EKG Impression Assessment and Plan Patient is a 66 year old female that presents with an acute reaction to Scopolamine patch use Based on the history and presentation of the patient we planned to admit the patient and perform a TIA/stroke workup including an ECHO, Carotid US, HbA1c, and lipid panel. The patient decided that she did not feel the need to stay for inpatient evaluation due to the improvement in her condition. We recommended that she take an 81mg Aspirin for stroke prevention and to follow up with her primary care physician for further evaluation of her adverse event. Resident Physician Supervision Note: I interviewed and examined the patient. Discussed with Dr. Hunt and agree with findings and plan as documented in the note. Any exceptions or clarifications are listed here: None Documented By: Vladimir García i discussed the case w Dr Hunt, then as i went to see the patient, she was feeling better and saying that she was going to leave. dsicussed high likelihood of related to scopolamine patch due to time proximity, but also discussed that with slurred speech and longstanding HTN - can't entirely r/o TIA that could be warning for CVA. she expressed understanding and willingness to pursue outpatient w/u but not stay inpatient, understands risks. willing to start asa 81mg. probably would benefit from statin but with multiple allergies and recent drug reaction will defer to PCP. ROS otherwise negative except for as above vitals noted nad breathing unlabored no pallor or icterus no focal neuro deficits, pressured speech but no dysarthria no slurring slurred speech/elevated BP -as above - likely related to starting scopolamine patch but can't entirely exclude TIA -asa 81mg daily -defer to PCP as above w statin -would pursue outpt w/u w lipids, A1c, echo, carotids and BP monitoring - she notes willingness to do so as outpt, accepts risks of not doing so expedited as inpatient, home w close outpt f/u
== END 2016-10-15 19:52 | disposition home or self-care (01) ==
LOC: EDBD 17:06 → C.EDC 17:08
DX: I67.4 Hypertensive encephalopathy (principal); R07.9 Chest pain, unspecified; R42 Dizziness and giddiness; T44.3X5A Adverse effect of other parasympatholytics [anticholinergics and antimuscarinics] and spasmolytics, initial encounter; X58.XXXA Exposure to other specified factors, initial encounter; F41.9 Anxiety disorder, unspecified; J45.909 Unspecified asthma, uncomplicated; I25.10 Atherosclerotic heart disease of native coronary artery without angina pectoris; I10 Essential (primary) hypertension; Z95.0 Presence of cardiac pacemaker; Z80.9 Family history of malignant neoplasm, unspecified; Z82.49 Family history of ischemic heart disease and other diseases of the circulatory system; Z84.1 Family history of disorders of kidney and ureter; Z87.891 Personal history of nicotine dependence; Z79.899 Other long term (current) drug therapy

== ENCOUNTER → 2017-01-09 | Outpatient (CLI) | payer OTHER ==
[~2017-01-09] MED LIST changes: +ANT25 PEG; +ANT25 PO; +APR25 PO; -ATV/2 PO; +ATV2 PO; -HYDR-2977 PO; +HYDR-4322 PO; +LAMO200T38 PO; +LBR25 PO; +RIBO50TA4 PO; +WLLXL150 PO
[2017-01-09 17:18] LABS: RHEUMATOID FACTOR < 10.0 U/mL (0-15)
[2017-01-09 19:50] LABS: LYME DISEASE AB IGG NEG (NEG); LYME DISEASE AB IGM NEG (NEG)
== END | disposition home or self-care (01) ==
LOC: C.LAB1850 15:07
PROVIDERS: ATTEND Internal Medicine
DX: Z11.59 Encounter for screening for other viral diseases (principal); M25.50 Pain in unspecified joint; I10 Essential (primary) hypertension

== ENCOUNTER 2017-02-08 14:41 | Emergency (ER) | payer OTHER ==
[~2017-02-08] VITALS: Ht 152.4 cm; Wt 52.9 kg
[~2017-02-08 14:41] MED LIST changes: -APR25 PO; -LAMO200T38 PO; -LBR25 PO; -RIBO50TA4 PO; -WLLXL150 PO
[2017-02-08 14:48] VITALS: Ht 152.4 cm; Wt 52.9 kg
[2017-02-08] MEDS ORDERED: LAMO200T38 PO (15:29)
[2017-02-08] MEDS ORDERED: RIBO50TA4 PO (15:34)
[2017-02-08 15:38] LABS: BASO % 0.8 %; BASO ABS # 0.04 K/uL (0-0.2); COMPLETE YES; EOS % 10.3 %; HEMATOCRIT 39.1 % (37-47); IG% 0.4 %; LYMPH % 25.2 %; LYMPH ABS # 1.25 K/uL (1.2-3.4); MEAN CELL VOLUME 85.9 fL (80-100); MEAN CORPUSCULAR HEMOGLOBIN 29.9 pg (25-34); MEAN CORPUSCULAR HGB CONC 34.8 g/dl (32-36); MEAN PLATELET VOLUME 8.3 fL (7.4-10.4); MONO % 15.3 %; PLATELET COUNT 364 K/uL (130-400); RED BLOOD COUNT 4.55 M/uL (4.2-5.4); WHITE BLOOD COUNT 4.97 K/uL (4.8-10.8)
[2017-02-08 15:44] LABS: BLOOD UREA NITROGEN 8 mg/dl (7-18); BUN/CREATININE RATIO 10.3 (10-20); CALCIUM 9.6 mg/dl (8.5-10.1); CARBON DIOXIDE 27 mmol/L (21-32); CHLORIDE 98 mmol/L (98-107); CREATININE 0.79 mg/dl (0.60-1.20); GLUCOSE 89 mg/dl (70-99); POTASSIUM 4.1 mmol/L (3.5-5.1); SODIUM 131 mmol/L (136-145)
--- NOTE | 2017-02-08 15:46 | DIAGNOSTIC IMAGING REPORT ---
CHEST ONE VIEW PORTABLE HISTORY: 66 years-old Female Evaluate Fever/Sepsis acute fever and sepsis. Initial exam. COMPARISON: Chest radiograph 10/15/2016 TECHNIQUE: Portable upright AP view of the chest FINDINGS: Left pectoral pacer is noted with leads overlying the right atrium and right ventricle. There is atherosclerosis of the aorta. No pneumothorax, pleural effusion, focal airspace consolidation or overt pulmonary edema. The bones of the chest appear grossly intact. IMPRESSION: No acute cardiopulmonary process. The above report was generated using voice recognition software. It may contain grammatical, syntax or spelling errors. Electronically signed by: Rob Torrez M.D. 02/08/2017 3:45 PM Dictated Date/Time: 02/08/2017 3:44 PM
[2017-02-08 15:54] VITALS: O2SAT 95
[2017-02-08] MEDS ORDERED: HydrALAZINE HCL 20 MG/ML VIAL IV. STA (16:04)
--- NOTE | 2017-02-08 16:12 | EMERGENCY ROOM VISIT NOTE ---
History Report prepared by Moe: Arnol Flores Under the Supervision of: Dr. Jose Godoy D.O. First contact with patient: 14:55 Chief Complaint: HYPERTENSION Stated Complaint: HIGH BLOOD PRESSURE, CHEST PAIN,EYE FLASHES History of Present Illness The patient is a 66 year old female who presents to the Emergency Room with complaints of constant high blood pressure noticed this morning. The patient states that she was at her furniture removalist's assistant this morning, and they noted that she had a high blood pressure. She additionally states that last night she was having flashes in her left eye for about an hour. She sate that her vision is not as good today, and she feels fatigued. Additionally, the patient states that she was having chest pressure this morning. The patient has a history of hypertension, and she states that she is on hydralazine as needed. 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 The patient additionally states that she has been having acid reflux for the past 3 days. Source of History: patient Onset: earlier today Position: other (global) Quality: other (hypertension) Timing: constant Associated Symptoms: + fatigue Note: Associated symptoms: chest pressure, eye flashes Review of Systems See HPI for pertinent positives & negatives. A total of 10 systems reviewed and were otherwise negative. Past Medical & Surgical Medical Problems: (1) Abdominal hysterectomy (2) ANXIETY STATE NOS (3) AORTOCORONARY BYPASS (4) ASTHMA, UNSPECIFIED (5) Chest pressure (6) Coronary artery disease (7) DEPRESS DISORDER-UNSPEC (8) HYPERTENSION NOS (9) Implantation of cardiac pacemaker (10) Tonsillectomy Family History Cancer FH: CAD (coronary artery disease) FHx: kidney disease Social History Smoking Status: Never Smoker Alcohol Use: occasionally Drug Use: none Housing Status: lives alone Occupation Status: employed Current/Historical Medications Scheduled Bupropion Hcl (Wellbutrin Xl), 300 MG PO QAM Lamotrigine (Lamictal), 400 MG PO DAILY Meclizine HCl (Meclizine HCl), 50 MG PO QAM Riboflavin (B-2), 1 TAB PO DAILY Scheduled PRN Hydralazine HCl (Hydralazine HCl), 5-10 MG PO Q6H PRN for Hypertension Lorazepam (Lorazepam), 8-12 MG PO Q4-Q6 PRN for Anxiety Ondansetron (Ondansetron HCl), 4-8 MG PO Q6H PRN for Nausea or Vomiting Allergies Coded Allergies: Lactose (Verified Allergy, Intermediate, GI UPSET, DIARRHEA, INTESTINAL PAIN, 02/08/17) Metronidazole (Verified Allergy, Unknown, ., 02/08/17) Moxifloxacin (Verified Allergy, Unknown, unnknown, 02/08/17) Nitroglycerin (Verified Allergy, Unknown, SEVERE HYPOTENSION, 02/08/17) Penicillins (Verified Allergy, Unknown, 02/08/17) Promethazine (Verified Allergy, Unknown, hallucinations, 02/08/17) Soy Allergy (Verified Allergy, Unknown, ANAPHYLAXIS, 02/08/17) Physical Exam Vital Signs Date Time Temp Pulse Resp B/P (MAP) Pulse Ox O2 Delivery O2 Flow Rate FiO2 02/08/17 16:25 85 20 195/101 98 Room Air 02/08/17 15:58 89 20 204/111 96 Room Air 02/08/17 15:54 95 Room Air 02/08/17 14:48 36.5 71 16 190/99 95 Room Air Physical Exam CONSTITUTIONAL/VITAL SIGNS: Reviewed / noted above. GENERAL: Non-toxic in appearance. INTEGUMENTARY: Warm, dry, and [place]. HEAD: Normocephalic. EYES: without scleral icterus or trauma. Funduscopic exam performed. No obvious abnormality of the retina visualized. Otherwise eye exam is normal. ENT/OROPHARYNX: clear and moist. LYMPHADENOPATHY/NECK: Is supple without lymphadenopathy or meningismus. RESPIRATORY: Lungs clear and equal. CARDIOVASCULAR: Regular rate and rhythm. GI/ABDOMEN: Soft and nontender. No organomegaly or pulsatile mass. No rebound or guarding. Normal bowel sounds. EXTREMITIES: Warm and well perfused. BACK: No CVA tenderness. NEUROLOGICAL: Intact without focal deficits. PSYCHIATRIC: normal affect. MUSCULOSKELETAL: Normally developed with good muscle tone. Medical Decision & Procedures ER Provider Diagnostic Interpretation: Radiology results as stated below per my review and radiologist interpretation: CHEST ONE VIEW PORTABLE HISTORY: 66 years-old Female Evaluate Fever/Sepsis acute fever and sepsis. Initial exam. COMPARISON: Chest radiograph 10/15/2016 TECHNIQUE: Portable upright AP view of the chest FINDINGS: Left pectoral pacer is noted with leads overlying the right atrium and right ventricle. There is atherosclerosis of the aorta. No pneumothorax, pleural effusion, focal airspace consolidation or overt pulmonary edema. The bones of the chest appear grossly intact. IMPRESSION: No acute cardiopulmonary process. The above report was generated using voice recognition software. It may contain grammatical, syntax or spelling errors. Electronically signed by: Rob Torrez M.D. 02/08/2017 3:45 PM Dictated Date/Time: 02/08/2017 3:44 PM Laboratory Results 02/08/17 15:00 Red Blood Count 4.55, Mean Corpuscular Volume 85.9, Mean Corpuscular Hemoglobin 29.9, Mean Corpuscular Hemoglobin Concent 34.8, Mean Platelet Volume 8.3, Neutrophils (%) (Auto) 48.0, Lymphocytes (%) (Auto) 25.2, Monocytes (%) (Auto) 15.3, Eosinophils (%) (Auto) 10.3, Basophils (%) (Auto) 0.8, Neutrophils # (Auto ) 2.39, Lymphocytes # (Auto) 1.25, Monocytes # (Auto) 0.76, Eosinophils # (Auto ) 0.51, Basophils # (Auto) 0.04 02/08/17 15:00 Test 02/08/17 15:00 White Blood Count 4.97 K/uL (4.8-10.8) Red Blood Count 4.55 M/uL (4.2-5.4) Hemoglobin 13.6 g/dL (12.0-16.0) Hematocrit 39.1 % (37-47) Mean Corpuscular Volume 85.9 fL (80-100) Mean Corpuscular Hemoglobin 29.9 pg (25-34) Mean Corpuscular Hemoglobin Concent 34.8 g/dl (32-36) Platelet Count 364 K/uL (130-400) Mean Platelet Volume 8.3 fL (7.4-10.4) Neutrophils (%) (Auto) 48.0 % Lymphocytes (%) (Auto) 25.2 % Monocytes (%) (Auto) 15.3 % Eosinophils (%) (Auto) 10.3 % Basophils (%) (Auto) 0.8 % Neutrophils # (Auto) 2.39 K/uL (1.4-6.5) Lymphocytes # (Auto) 1.25 K/uL (1.2-3.4) Monocytes # (Auto) 0.76 K/uL (0.11-0.59) Eosinophils # (Auto) 0.51 K/uL (0-0.5) Basophils # (Auto) 0.04 K/uL (0-0.2) RDW Standard Deviation 45.7 fL (36.4-46.3) RDW Coefficient of Variation 14.5 % (11.5-14.5) Immature Granulocyte % (Auto) 0.4 % Immature Granulocyte # (Auto) 0.02 K/uL (0.00-0.02) Anion Gap 7.0 mmol/L (3-11) Est Creatinine Clear Calc Drug Dose 51.0 ml/min Estimated GFR () 91.0 Estimated GFR (Non- 78.6 BUN/Creatinine Ratio 10.3 (10-20) Calcium Level 9.6 mg/dl (8.5-10.1) Troponin I < 0.015 ng/ml (0-0.045) Laboratory results as stated above per my review. Medications Administered Medications (Trade) Dose Ordered Sig/Trip Route Start Time Stop Time Status Last Admin Dose Admin Hydralazine HCl (HydrALAZINE INJ) 10 mg NOW STAT IV. 02/08/17 16:04 02/08/17 16:15 DC 02/08/17 16:25 10 MG ECG Indication: other (hypertension) Rate (beats per minute): 62 Rhythm: normal sinus Findings: no ectopy, other (No acute injury) ED Course 1455: Previous medical records were reviewed. The patient was evaluated in room B4. A complete history and physical examination was performed. 1600: I reevaluated the patient, and I performed a funduscopic exam, and her blood pressure was still elevated 1604: Hydralazine HCl 10mg IV 1648: On reevaluation, the patient is doing well but still has high blood pressure. I discussed the results and findings with the patient. She verbalized agreement of the treatment plan. She was discharged home. Medical Decision the differential was considered includes acute myocardial infarction, acute coronary syndrome, myocarditis, pericarditis, pericardial effusions /tamponade, esophageal perforation, thoracic aortic dissection, pulmonary embolism, pneumonia, pneumothorax, pancreatitis, shingles, acute cholecystitis, perforated abdominal viscus. This is a 66-year-old female who presents to the ED with a chief complaint of high blood pressure. She was sent from an eye rehabilitation facility for elevated blood pressure. She also reports having some flashing lights in her left eye. She states that an furniture removalist's assistant looked at her briefly and then sent her here after consulted with the medical parasitologist group for her hypertension. The patient is chronically on when necessary hydralazine and when necessary for systolic for labile hypertension. The patient's exam here was unremarkable. Her blood pressure was 190/99. Blood work including a CBC and PRP was normal. Troponin was negative. Chest x-ray did not show acute disease. She took one of her own hydralazine 10 mg tablets. Blood pressure was still elevated. A funduscopic exam was performed in the left eye and no obvious abnormalities were visualized. The patient had reportedly had a funduscopic exam by an furniture removalist's assistant at the patient's eye rehabilitation facility as well and was not informed of any abnormalities. The patient because of continued hypertension was given IV hydralazine 10 mg. Her blood pressure did improve. 171/91. The patient reports that because her blood pressure is very labile and even on small doses of chronic antihypertensives she has hypotensive and syncopal episodes, she is only on when necessary blood pressure medications. She has not had any flashes of light since around 11 PM last night. Grossly her vision is not affected. She is felt to be stable for discharge and outpatient follow- up. Medication Reconcilliation Current Medication List: was personally reviewed by me Blood Pressure Screening Patient's blood pressure: Elevated blood pressure Blood pressure disposition: Referred to PCP Impression Primary Impression: Hypertension Scribe Attestation The scribe's documentation has been prepared under my direction and personally reviewed by me in its entirety. I confirm that the note above accurately reflects all work, treatment, procedures, and medical decision making performed by me. Departure Information Dispostion Home / Self-Care Referrals RV. Winters MD (PCP) Forms HOME CARE DOCUMENTATION FORM, IMPORTANT VISIT INFORMATION, WORK / SCHOOL INSTRUCTIONS Patient Instructions Hypertension Abdi, My [facility] Additional Instructions Follow-up with your doctors for recheck of your hypertension. Follow-up with your inspector eyeglass frames for recheck of your eyes. Take your medication as prescribed for hypertension. Follow-up with your doctor for further care and evaluation in 1-2 days. Return to the emergency department for worsening or new symptoms or any concerns. You have been examined and treated today on an emergency basis only. This is not a substitute for, or an effort to provide, complete comprehensive medical care. It is impossible to recognize and treat all injuries or illnesses in a single emergency department visit. It is therefore important that you follow up closely with your doctor. Call as soon as possible for an appointment.
[2017-02-08 17:23] VITALS: BP 179/90; PULSE 85; TEMP 36.5; O2SAT 98
== END 2017-02-08 17:15 | disposition home or self-care (01) ==
LOC: C.EDB 14:43
DX: I10 Essential (primary) hypertension (principal); F41.9 Anxiety disorder, unspecified; J45.909 Unspecified asthma, uncomplicated; F32.9 Major depressive disorder, single episode, unspecified; I25.10 Atherosclerotic heart disease of native coronary artery without angina pectoris; Z82.49 Family history of ischemic heart disease and other diseases of the circulatory system

== ENCOUNTER 2017-02-08 19:25 | Observation (INO) | payer OTHER ==
[~2017-02-08] VITALS: Ht 152.4 cm; Wt 50.2 kg
[~2017-02-08 19:25] MED LIST changes: +LAMO200T38 PO; +RIBO50TA4 PO
[2017-02-08 20:50] LABS: INR 0.9 (0.9-1.1)
[2017-02-08 20:51] LABS: BASO % 0.5 %; BASO ABS # 0.04 K/uL (0-0.2); COMPLETE YES; EOS % 4.6 %; IG% 0.4 %; LYMPH % 9.3 %; LYMPH ABS # 0.79 K/uL (1.2-3.4); MEAN CORPUSCULAR HEMOGLOBIN 30.3 pg (25-34); MEAN CORPUSCULAR HGB CONC 35.3 g/dl (32-36); MEAN PLATELET VOLUME 8.5 fL (7.4-10.4); MONO % 9.9 %; NEUT % 75.3 %; PLATELET COUNT 378 K/uL (130-400); RED BLOOD COUNT 4.42 M/uL (4.2-5.4); WHITE BLOOD COUNT 8.47 K/uL (4.8-10.8)
--- NOTE | 2017-02-08 21:10 | DIAGNOSTIC IMAGING REPORT ---
CHEST ONE VIEW PORTABLE CLINICAL HISTORY: 66 years-old Female presenting with eval for pna, chest pain, near syncope. TECHNIQUE: Portable upright AP view of the chest was obtained. COMPARISON: 02/08/2017. FINDINGS: Left-sided pacer with leads to the right atrium and right ventricular apex unchanged. Cardiac mediastinal silhouette normal. Lungs mildly hyperinflated, unchanged. Lungs and pleural spaces clear. Osseous structures normal. Upper abdomen normal. IMPRESSION: 1. No acute cardiopulmonary disease. Electronically signed by: Asim Alvarado M.D. 02/08/2017 9:09 PM Dictated Date/Time: 02/08/2017 9:08 PM
[2017-02-08 21:18] LABS: BLOOD UREA NITROGEN 8 mg/dl (7-18); BUN/CREATININE RATIO 8.8 (10-20); CALCIUM 9.7 mg/dl (8.5-10.1); CARBON DIOXIDE 28 mmol/L (21-32); CHLORIDE 98 mmol/L (98-107); CREATININE 0.95 mg/dl (0.60-1.20); GLUCOSE 85 mg/dl (70-99); SODIUM 133 mmol/L (136-145)
[2017-02-08 21:19] LABS: POTASSIUM 3.4 mmol/L (3.5-5.1)
[2017-02-08] MEDS ORDERED: ONDANSETRON INJ 2 MG/ML 2 ML VIAL IV STA (21:29)
[2017-02-08] MEDS ORDERED: OPTIRAY 320 IV PRN (21:30)
[2017-02-08] MEDS ORDERED: SODIUM CHLORIDE 0.9% 500ML 500 ML IV STA (21:49)
[2017-02-08 22:20] VITALS: O2SAT 97
--- NOTE | 2017-02-08 22:22 | DIAGNOSTIC IMAGING REPORT ---
(CHEST FOR PE) ANGIO WITH CLINICAL HISTORY: 66 years-old Female presenting with chest pain, syncope, clinical concern for pulmonary embolus. TECHNIQUE: Multidetector CT angiography of the chest was performed after administration of intravenous contrast. 3-D volumetric and/or maximum intensity projection (MIP) images were subsequently reconstructed for review. IV contrast: 104 mL of Optiray 320. A dose lowering technique was used consistent with the principles of ALARA (as low as reasonably achievable). COMPARISON: 04/22/2012. CT DOSE (mGy.cm): The estimated cumulative dose is 202.65 mGy.cm. FINDINGS: [employer] topogram: Left-sided pacer with leads to the right atrium and right ventricular apex unchanged. Pulmonary vasculature: The study is adequate for assessment of the pulmonary vascular tree. No filling defect within the pulmonary arteries to suggest embolus. Main pulmonary artery is not enlarged. No flattening of the interventricular septum. No intracardiac intracardiac filling defect. No reflux of contrast into the hepatic veins. Remaining chest: On soft tissue windows, normal thyroid and thoracic inlet. No axillary, supraclavicular, hilar, or mediastinal lymphadenopathy. Normal aorta. Normal heart size. No pericardial or pleural effusion. Upper abdomen normal. On lung windows, minimal dependent changes in the right lower lobe. No other focal infiltrate. Airways patent. On bone windows, normal osseous structures. IMPRESSION: 1. No evidence of pulmonary embolus. No acute intrathoracic pathology. Electronically signed by: Asim Alvarado M.D. 02/08/2017 10:21 PM Dictated Date/Time: 02/08/2017 10:15 PM
[2017-02-08 23:07] LABS: MAGNESIUM 2.2 mg/dl (1.8-2.4)
--- NOTE | 2017-02-08 23:18 | History and Physical ---
History & Physical Date & Time of Service: Feb 08, 2017 at 23:18 Chief Complaint: Near Syncope Primary Care Physician: RV. Winters MD History of Present Illness Source: patient The patient is a 66-year-old female who presents to the emergency department via EMS with a syncopal episode that occurred just [employer]. The patient had been seen earlier in the day in the ED for elevated blood pressure, with a history of fluctuating blood pressure, and has been given IV hydralazine at that time, and told to take her oral hydralazine at the usual time. Patient reportedly went out to eat, had chicken wings, and alcoholic beverage, and which went out to her car passed out. She reports that she has a history of passing out. She has been given meclizine in the past by her neurologist for dizziness, reports today's episode was different than that. Earlier in the day, she been seen by her eye doctor due to flashes in the left eye, then sent her to the emergency department because her blood pressure was elevated. She has a pacemaker implantation, which was interrogated in the ED at her second visit, without any significant abnormalities noted. She reports a history of takotsubo. Past Medical/Surgical History Medical Problems: (1) Abdominal hysterectomy Status: Resolved (2) ANXIETY STATE NOS Status: Chronic (3) AORTOCORONARY BYPASS Status: Chronic (4) ASTHMA, UNSPECIFIED Status: Chronic (5) Coronary artery disease Status: Chronic (6) DEPRESS DISORDER-UNSPEC Status: Chronic (7) HYPERTENSION NOS Status: Chronic (8) Implantation of cardiac pacemaker Status: Resolved (9) Tonsillectomy Status: Resolved Family History Cancer FH: CAD (coronary artery disease) FHx: kidney disease Social History Smoking Status: Former Smoker Smokeless Tobacco Use: No Alcohol Use: occasionally Drug Use: none Housing status: lives alone Occupational Status: employed Immunizations History of Influenza Vaccine: No History of Tetanus Vaccine?: No History of Pneumococcal: No History of Hepatitis B Vaccine: No Multi-Drug Resistant Organisms History of MDRO: No Allergies Coded Allergies: Lactose (Verified Allergy, Intermediate, GI UPSET, DIARRHEA, INTESTINAL PAIN, 02/08/17) Metronidazole (Verified Allergy, Unknown, ., 02/08/17) Moxifloxacin (Verified Allergy, Unknown, unnknown, 02/08/17) Nitroglycerin (Verified Allergy, Unknown, SEVERE HYPOTENSION, 02/08/17) Penicillins (Verified Allergy, Unknown, 02/08/17) Promethazine (Verified Allergy, Unknown, hallucinations, 02/08/17) Soy Allergy (Verified Allergy, Unknown, ANAPHYLAXIS, 02/08/17) Home Medications Scheduled Bupropion Hcl (Wellbutrin Xl), 300 MG PO QAM Lamotrigine (Lamictal), 400 MG PO DAILY Meclizine HCl (Meclizine HCl), 50 MG PO QAM Riboflavin (B-2), 1 TAB PO DAILY Scheduled PRN Hydralazine HCl (Hydralazine HCl), 5-10 MG PO Q6H PRN for Hypertension Lorazepam (Lorazepam), 8-12 MG PO Q4-Q6 PRN for Anxiety Ondansetron (Ondansetron HCl), 4-8 MG PO Q6H PRN for Nausea or Vomiting Review of Systems The patient denies chest pain, cough, lower extremity swelling, vision change, hearing change, sore throat, fevers, chills, sweats, weight change, nausea, vomiting, diarrhea or constipation, abdominal pain, pelvic pain, blood in urine or stool, dysuria, urinary frequency or urgency, memory loss, rash, abnormal bruising or bleeding, focal weakness, numbness or tingling in arms or legs, generalized arthralgias or myalgias, back or neck pain, or night sweats. The review of systems is otherwise negative other than for that already noted above, and at least 10 systems have been reviewed. Physical Exam Vital Signs Date Time Temp Pulse Resp B/P (MAP) Pulse Ox O2 Delivery O2 Flow Rate FiO2 02/08/17 22:25 146/77 02/08/17 22:20 78 16 97 02/08/17 21:50 71 18 100/61 02/08/17 21:46 52 85/39 02/08/17 21:30 77 148/89 81 155/82 83 129/74 02/08/17 21:19 74 18 134/76 96 Room Air 02/08/17 20:54 96 Room Air 02/08/17 19:44 36.6 76 18 152/99 97 Room Air 02/08/17 19:36 73 The patient is awake, well-developed and adequately nourished, alert and oriented 3, normocephalic and atraumatic, lying in bed and in no acute distress. HEENT--PERRL, EOMI, mucous membranes and oropharynx dry. Neck--supple, no JVD or bruits, thyroid normal, trachea midline, no adenopathy. Heart--normal S1 and S2, no extra beats, no murmurs, rubs or gallops. Lungs--clear bilaterally with good air movement, no respiratory distress, no accessory muscle use. Abdomen--normal bowel sounds and soft, nontender and nondistended, no hernias or masses, no organomegaly. Extremities--no cyanosis, clubbing or edema. There are good distal pulses b/l. Dermatologic--normal skin turgor, normal color, warm and dry, no abnormal lymph nodes, no rash. Neurologic--cranial nerves II through XII grossly intact, motor and sensory examination normal. Rheumatologic--normal range of motion, nontender, muscles and joints. Psychiatric--normal affect. Diagnostics Laboratory Results Results Past 24 Hours Test 02/08/17 20:16 Range/Units White Blood Count 8.47 4.8-10.8 K/uL Red Blood Count 4.42 4.2-5.4 M/uL Hemoglobin 13.4 12.0-16.0 g/dL Hematocrit 38.0 37-47 % Mean Corpuscular Volume 86.0 80-100 fL Mean Corpuscular Hemoglobin 30.3 25-34 pg Mean Corpuscular Hemoglobin Concent 35.3 32-36 g/dl Platelet Count 378 130-400 K/uL Mean Platelet Volume 8.5 7.4-10.4 fL Neutrophils (%) (Auto) 75.3 % Lymphocytes (%) (Auto) 9.3 % Monocytes (%) (Auto) 9.9 % Eosinophils (%) (Auto) 4.6 % Basophils (%) (Auto) 0.5 % Neutrophils # (Auto) 6.38 1.4-6.5 K/uL Lymphocytes # (Auto) 0.79 1.2-3.4 K/uL Monocytes # (Auto) 0.84 0.11-0.59 K/uL Eosinophils # (Auto) 0.39 0-0.5 K/uL Basophils # (Auto) 0.04 0-0.2 K/uL RDW Standard Deviation 45.1 36.4-46.3 fL RDW Coefficient of Variation 14.5 11.5-14.5 % Immature Granulocyte % (Auto) 0.4 % Immature Granulocyte # (Auto) 0.03 0.00-0.02 K/uL Prothrombin Time 10.0 9.0-12.0 SECONDS Prothromb Time International Ratio 0.9 0.9-1.1 Activated Partial Thromboplast Time 25.8 21.0-31.0 SECONDS Partial Thromboplastin Ratio 1.0 D-Dimer 520 0-500 ug/L FEU Sodium Level 133 136-145 mmol/L Potassium Level 3.4 3.5-5.1 mmol/L Chloride Level 98 98-107 mmol/L Carbon Dioxide Level 28 21-32 mmol/L Anion Gap 7.0 3-11 mmol/L Blood Urea Nitrogen 8 7-18 mg/dl Creatinine 0.95 0.60-1.20 mg/dl Est Creatinine Clear Calc Drug Dose 42.4 ml/min Estimated GFR () 72.8 Estimated GFR (Non- 62.9 BUN/Creatinine Ratio 8.8 10-20 Random Glucose 85 70-99 mg/dl Calcium Level 9.7 8.5-10.1 mg/dl Magnesium Level 2.2 1.8-2.4 mg/dl Total Bilirubin 0.8 0.2-1 mg/dl Direct Bilirubin 0.4 0-0.2 mg/dl Aspartate Amino Transf (AST/SGOT) 185 15-37 U/L Alanine Aminotransferase (ALT/SGPT) 243 12-78 U/L Alkaline Phosphatase 1326 45-117 U/L Troponin I < 0.015 0-0.045 ng/ml Total Protein 7.6 6.4-8.2 gm/dl Albumin 4.1 3.4-5.0 gm/dl Ethyl Alcohol mg/dL 49.5 0-3 mg/dl Diagnostic Radiology Patient Name: MARYLIN ALLISON Unit Number: [id number] Dictated: 02/08/172107 Transcribed: 02/08/172107 PBS Printed Date/Time: [~ rep prt dt]/[~ rep prt tm] [~ rep ct labl] - [~ rep ct ivnm] [facility] [place] [place] [address] Dictated: 02/08/172107 Transcribed: 02/08/172107 PBS Printed Date/Time: [~ rep prt dt]/[~ rep prt tm] [~ rep ct labl] - [~ rep ct ivnm] [~ rep ct add3]] CHEST ONE VIEW PORTABLE CLINICAL HISTORY: 66 years-old Female presenting with eval for pna, chest pain, near syncope. TECHNIQUE: Portable upright AP view of the chest was obtained. COMPARISON: 02/08/2017. FINDINGS: Left-sided pacer with leads to the right atrium and right ventricular apex unchanged. Cardiac mediastinal silhouette normal. Lungs mildly hyperinflated, unchanged. Lungs and pleural spaces clear. Osseous structures normal. Upper abdomen normal. IMPRESSION: 1. No acute cardiopulmonary disease. Electronically signed by: Asim Alvarado M.D. 02/08/2017 9:09 PM Dictated Date/Time: 02/08/2017 9:08 PM The status of this report is Signed. Draft = Not yet reviewed or approved by Radiologist. Signed = Reviewed and approved by Radiologist. <AttendingPhy></AttendingPhy> <FamilyPhy>Nia Smith D.O.</FamilyPhy> < PrimaryPhy>RV. Winters MD</PrimaryPhy> <UnitNumber>[id number]</ UnitNumber> <VisitNumber>[id number]</VisitNumber> <PatientName>ESTEFANY, LISA</PatientName> <DateOfBirth>1950</DateOfBirth> <Location>[facility]</ Location> <ServiceDate>02/08/17</ServiceDate> <MNE>ESINDI</MNE> <OrderingPhy> Mukul Grider MD</OrderingPhy> <OrderingPhyMNE>f rep ord dr garcia</OrderingPhyMNE > <DictatingPhyMNE>f rep dict dr garcia</DictatingPhyMNE> <CCListMNE>f rep ct jaxe</ CCListMNE> <AdmittingPhyMNE>f pt admit dr garcia</AdmittingPhyMNE> <AttendingPhyMNE >f pt attend dr garcia</AttendingPhyMNE> <ConsultingPhyMNE>f pt consult dr garcia</ConsultingPhyMNE> <FamilyPhyMNE>f pt fam dr garcia</FamilyPhyMNE> <OtherPhyMNE>f pt other dr garcia</OtherPhyMNE> < PrimaryPhyMNE>f pt prim care dr garcia</PrimaryPhyMNE> <ReferringPhyMNE>f pt referring dr garcia</ReferringPhyMNE> Patient Name: MARYLIN ALLISON Unit Number: [id number] Dictated: 02/08/172214 Transcribed: 02/08/172214 PBS Printed Date/Time: [~ rep prt dt]/[~ rep prt tm] [~ rep ct labl] - [~ rep ct ivnm] [facility] [place] [place] [address] Dictated: 02/08/172214 Transcribed: 02/08/172214 PBS Printed Date/Time: [~ rep prt dt]/[~ rep prt tm] [~ rep ct labl] - [~ rep ct ivnm] [~ rep ct add3]] (CHEST FOR PE) ANGIO WITH CLINICAL HISTORY: 66 years-old Female presenting with chest pain, syncope, clinical concern for pulmonary embolus. TECHNIQUE: Multidetector CT angiography of the chest was performed after administration of intravenous contrast. 3-D volumetric and/or maximum intensity projection (MIP) images were subsequently reconstructed for review. IV contrast: 104 mL of Optiray 320. A dose lowering technique was used consistent with the principles of ALARA (as low as reasonably achievable). COMPARISON: 04/22/2012. CT DOSE (mGy.cm): The estimated cumulative dose is 202.65 mGy.cm. FINDINGS: Candy Decorator topogram: Left-sided pacer with leads to the right atrium and right ventricular apex unchanged. Pulmonary vasculature: The study is adequate for assessment of the pulmonary vascular tree. No filling defect within the pulmonary arteries to suggest embolus. Main pulmonary artery is not enlarged. No flattening of the interventricular septum. No intracardiac intracardiac filling defect. No reflux of contrast into the hepatic veins. Remaining chest: On soft tissue windows, normal thyroid and thoracic inlet. No axillary, supraclavicular, hilar, or mediastinal lymphadenopathy. Normal aorta. Normal heart size. No pericardial or pleural effusion. Upper abdomen normal. On lung windows, minimal dependent changes in the right lower lobe. No other focal infiltrate. Airways patent. On bone windows, normal osseous structures. IMPRESSION: 1. No evidence of pulmonary embolus. No acute intrathoracic pathology. Electronically signed by: Asim Alvarado M.D. 02/08/2017 10:21 PM Dictated Date/Time: 02/08/2017 10:15 PM The status of this report is Signed. Draft = Not yet reviewed or approved by Radiologist. Signed = Reviewed and approved by Radiologist. <AttendingPhy></AttendingPhy> <FamilyPhy>Nia Smith D.O.</FamilyPhy> < PrimaryPhy>RV. Winters MD</PrimaryPhy> <UnitNumber>[id number]</ UnitNumber> <VisitNumber>[id number]</VisitNumber> <PatientName>ESTEFANY, LISA</PatientName> <DateOfBirth>1950</DateOfBirth> <Location>[facility]</ Location> <ServiceDate>02/08/17</ServiceDate> <MNE>ESINDI</MNE> <OrderingPhy> Mukul Grider MD</OrderingPhy> <OrderingPhyMNE>f rep ord dr garcia</OrderingPhyMNE > <DictatingPhyMNE>f rep dict dr garcia</DictatingPhyMNE> <CCListMNE>f rep ct jose</ CCListMNE> <AdmittingPhyMNE>f pt admit dr garcia</AdmittingPhyMNE> <AttendingPhyMNE >f pt attend dr garcia</AttendingPhyMNE> <ConsultingPhyMNE>f pt consult dr garcia</ConsultingPhyMNE> <FamilyPhyMNE>f pt fam dr garcia</FamilyPhyMNE> <OtherPhyMNE>f pt other dr garcia</OtherPhyMNE> < PrimaryPhyMNE>f pt prim care dr garcia</PrimaryPhyMNE> <ReferringPhyMNE>f pt referring dr garcia</ReferringPhyMNE> Impression Assessment and Plan Syncope and collapse-- Patient will be admitted to the telemetry unit. Patient has had a significant workup in the past, and follows with cardiology and neurology. She has been on Wellbutrin XL for 21 years, and reports that it has been working well, however, every symptom that she has could be attributed to side effects of Wellbutrin. Including: vision change, hypotensive episodes, tachycardia etc. For now, since patient is so attached to this drug, with will cut her dose to 150 mg by mouth daily and follow symptoms. Consult Dr. Sykes her day care aide. Of note, her pacer was interrogated in the emergency department and was found to be normal. Level of Care Telemetry Advanced Directives Existing Advance Directive: No Existing Living Will: No Existing Power of Customer Supply Chain Analyst: No Resuscitation Status FULL RESUSCITATION VTE Prophylaxis Given or contraindicated: SCD's
[2017-02-08] MEDS ORDERED: ACETAMINOPHEN 325 MG TAB PO PRN (23:30)
--- NOTE | 2017-02-08 23:53 | EMERGENCY ROOM VISIT NOTE ---
History Report prepared by Moe: Marya Hurley Under the Supervision of: Dr. Mukul Grider M.D. 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 She presents to the ED by EMS. She was seen earlier today for high blood pressure. Her blood pressure has a history of fluctuating and she has hydralazine to take as needed. She was told to take an oral hydralazine by the ED doctor. She was also given IV hydralazine. She was discharged home. She went to eat some wings and had a vodka on the rocks. In the middle of eating, she started feeling dizzy. She decided to go home, but she lost consciousness in the parking lot. She does not remember what happened. She currently has mid chest pressure which she has had intermittently for the past 24 hours. She notes that she has had indigestion for several days. Today she had some SOB with the chest pain. She has been having weak and dizzy episodes for the past 1-1.5 weeks. She had one this morning. She states that this dizziness is different from the dizziness for which she takes meclizine. She had flashes in her left eye yesterday. She was at her eye doctor today, but was sent to the ED because of her blood pressure. She feels fatigued. She denies any leg swelling or pain, fever, abdominal pain, vomiting, black or bloody stools. She has a pacemaker. She does not have a defibrillator. She has a history of takotsubo. She denies any history of PE. She admits to drinking alcohol 3 times a week. 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 Pt denies leg swelling/pain. Review of Systems See HPI for pertinent positives & negatives. A total of 10 systems reviewed and were otherwise negative. Past Medical & Surgical Medical Problems: (1) Abdominal hysterectomy (2) ANXIETY STATE NOS (3) AORTOCORONARY BYPASS (4) ASTHMA, UNSPECIFIED (5) Chest pressure (6) Coronary artery disease (7) DEPRESS DISORDER-UNSPEC (8) HYPERTENSION NOS (9) Implantation of cardiac pacemaker (10) Syncope and collapse (11) Tonsillectomy Family History Cancer FH: CAD (coronary artery disease) FHx: kidney disease Social History Smoking Status: Never Smoker Alcohol Use: occasionally Drug Use: none Marital Status: single Housing Status: lives alone Occupation Status: unemployed Current/Historical Medications Scheduled Bupropion Hcl (Wellbutrin Xl), 300 MG PO QAM Lamotrigine (Lamictal), 400 MG PO DAILY Meclizine HCl (Meclizine HCl), 50 MG PO QAM Riboflavin (B-2), 1 TAB PO DAILY Scheduled PRN Hydralazine HCl (Hydralazine HCl), 5-10 MG PO Q6H PRN for Hypertension Lorazepam (Lorazepam), 8-12 MG PO Q4-Q6 PRN for Anxiety Ondansetron (Ondansetron HCl), 4-8 MG PO Q6H PRN for Nausea or Vomiting Allergies Coded Allergies: Lactose (Verified Allergy, Intermediate, GI UPSET, DIARRHEA, INTESTINAL PAIN, 02/08/17) Metronidazole (Verified Allergy, Unknown, ., 02/08/17) Moxifloxacin (Verified Allergy, Unknown, unnknown, 02/08/17) Nitroglycerin (Verified Allergy, Unknown, SEVERE HYPOTENSION, 02/08/17) Penicillins (Verified Allergy, Unknown, 02/08/17) Promethazine (Verified Allergy, Unknown, hallucinations, 02/08/17) Soy Allergy (Verified Allergy, Unknown, ANAPHYLAXIS, 02/08/17) Physical Exam Vital Signs Date Time Temp Pulse Resp B/P (MAP) Pulse Ox O2 Delivery O2 Flow Rate FiO2 02/08/17 22:25 146/77 02/08/17 22:20 78 16 97 02/08/17 21:50 71 18 100/61 02/08/17 21:46 52 85/39 02/08/17 21:30 77 148/89 81 155/82 83 129/74 02/08/17 21:19 74 18 134/76 96 Room Air 02/08/17 20:54 96 Room Air 02/08/17 19:44 36.6 76 18 152/99 97 Room Air 02/08/17 19:36 73 Physical Exam Constitutional: Vital signs reviewed. Eyes: Pupils are equal round reactive to light. Conjunctiva are noninjected. ENT: Pharynx is clear without erythema or exudate. Mucous membranes are moist. Neck supple without meningeal signs. Respiratory: Clear to auscultation bilaterally. Breath sounds are equal bilaterally. Cardiovascular: Regular rate and rhythm. No rubs or gallops. GI: Soft, nondistended and nontender. Bowel sounds are present. Musculoskeletal: No peripheral edema. No lower extremity tenderness. Integumentary: No cyanosis. Neurological: The patient is awake and alert. No focal deficits. Psychiatric: anxious. Medical Decision & Procedures ER Provider Diagnostic Interpretation: X-ray results as stated below per interpretation by me and the radiologist. Radiology results as stated below per my review and the radiologist's interpretation: CHEST ONE VIEW PORTABLE CLINICAL HISTORY: 66 years-old Female presenting with eval for pna, chest pain, near syncope. TECHNIQUE: Portable upright AP view of the chest was obtained. COMPARISON: 02/08/2017. FINDINGS: Left-sided pacer with leads to the right atrium and right ventricular apex unchanged. Cardiac mediastinal silhouette normal. Lungs mildly hyperinflated, unchanged. Lungs and pleural spaces clear. Osseous structures normal. Upper abdomen normal. IMPRESSION: 1. No acute cardiopulmonary disease. Electronically signed by: Asim Alvarado M.D. 02/08/2017 9:09 PM Dictated Date/Time: 02/08/2017 9:08 PM (CHEST FOR PE) ANGIO WITH CLINICAL HISTORY: 66 years-old Female presenting with chest pain, syncope, clinical concern for pulmonary embolus. TECHNIQUE: Multidetector CT angiography of the chest was performed after administration of intravenous contrast. 3-D volumetric and/or maximum intensity projection (MIP) images were subsequently reconstructed for review. IV contrast: 104 mL of Optiray 320. A dose lowering technique was used consistent with the principles of ALARA (as low as reasonably achievable). COMPARISON: 04/22/2012. CT DOSE (mGy.cm): The estimated cumulative dose is 202.65 mGy.cm. FINDINGS: Program Scheduler topogram: Left-sided pacer with leads to the right atrium and right ventricular apex unchanged. Pulmonary vasculature: The study is adequate for assessment of the pulmonary vascular tree. No filling defect within the pulmonary arteries to suggest embolus. Main pulmonary artery is not enlarged. No flattening of the interventricular septum. No intracardiac intracardiac filling defect. No reflux of contrast into the hepatic veins. Remaining chest: On soft tissue windows, normal thyroid and thoracic inlet. No axillary, supraclavicular, hilar, or mediastinal lymphadenopathy. Normal aorta. Normal heart size. No pericardial or pleural effusion. Upper abdomen normal. On lung windows, minimal dependent changes in the right lower lobe. No other focal infiltrate. Airways patent. On bone windows, normal osseous structures. IMPRESSION: 1. No evidence of pulmonary embolus. No acute intrathoracic pathology. Electronically signed by: Asim Alvarado M.D. 02/08/2017 10:21 PM Dictated Date/Time: 02/08/2017 10:15 PM Laboratory Results 02/08/17 20:16 Red Blood Count 4.42, Mean Corpuscular Volume 86.0, Mean Corpuscular Hemoglobin 30.3, Mean Corpuscular Hemoglobin Concent 35.3, Mean Platelet Volume 8.5, Neutrophils (%) (Auto) 75.3, Lymphocytes (%) (Auto) 9.3, Monocytes (%) (Auto) 9.9, Eosinophils (%) (Auto) 4.6, Basophils (%) (Auto) 0.5, Neutrophils # (Auto) 6.38, Lymphocytes # (Auto) 0.79, Monocytes # (Auto) 0.84, Eosinophils # (Auto) 0.39, Basophils # (Auto) 0.04 02/08/17 20:16 Test 02/08/17 20:16 White Blood Count 8.47 K/uL (4.8-10.8) Red Blood Count 4.42 M/uL (4.2-5.4) Hemoglobin 13.4 g/dL (12.0-16.0) Hematocrit 38.0 % (37-47) Mean Corpuscular Volume 86.0 fL (80-100) Mean Corpuscular Hemoglobin 30.3 pg (25-34) Mean Corpuscular Hemoglobin Concent 35.3 g/dl (32-36) Platelet Count 378 K/uL (130-400) Mean Platelet Volume 8.5 fL (7.4-10.4) Neutrophils (%) (Auto) 75.3 % Lymphocytes (%) (Auto) 9.3 % Monocytes (%) (Auto) 9.9 % Eosinophils (%) (Auto) 4.6 % Basophils (%) (Auto) 0.5 % Neutrophils # (Auto) 6.38 K/uL (1.4-6.5) Lymphocytes # (Auto) 0.79 K/uL (1.2-3.4) Monocytes # (Auto) 0.84 K/uL (0.11-0.59) Eosinophils # (Auto) 0.39 K/uL (0-0.5) Basophils # (Auto) 0.04 K/uL (0-0.2) RDW Standard Deviation 45.1 fL (36.4-46.3) RDW Coefficient of Variation 14.5 % (11.5-14.5) Immature Granulocyte % (Auto) 0.4 % Immature Granulocyte # (Auto) 0.03 K/uL (0.00-0.02) Prothrombin Time 10.0 SECONDS (9.0-12.0) Prothromb Time International Ratio 0.9 (0.9-1.1) Activated Partial Thromboplast Time 25.8 SECONDS (21.0-31.0) Partial Thromboplastin Ratio 1.0 D-Dimer 520 ug/L FEU (0-500) Anion Gap 7.0 mmol/L (3-11) Est Creatinine Clear Calc Drug Dose 42.4 ml/min Estimated GFR () 72.8 Estimated GFR (Non- 62.9 BUN/Creatinine Ratio 8.8 (10-20) Calcium Level 9.7 mg/dl (8.5-10.1) Magnesium Level 2.2 mg/dl (1.8-2.4) Total Bilirubin 0.8 mg/dl (0.2-1) Direct Bilirubin 0.4 mg/dl (0-0.2) Aspartate Amino Transf (AST/SGOT) 185 U/L (15-37) Alanine Aminotransferase (ALT/SGPT) 243 U/L (12-78) Alkaline Phosphatase 1326 U/L (45-117) Troponin I < 0.015 ng/ml (0-0.045) Total Protein 7.6 gm/dl (6.4-8.2) Albumin 4.1 gm/dl (3.4-5.0) Ethyl Alcohol mg/dL 49.5 mg/dl (0-3) Laboratory results as reviewed by me. Medications Administered Medications (Trade) Dose Ordered Sig/Trip Route Start Time Stop Time Status Last Admin Dose Admin Ondansetron HCl (Zofran Inj) 4 mg NOW STAT IV 02/08/17 21:29 02/08/17 21:30 DC 02/08/17 21:52 4 MG Sodium Chloride 500 ml @ 999 mls/hr Q31M STAT IV 02/08/17 21:49 02/08/17 22:19 DC 02/08/17 21:52 999 MLS/HR ECG Indication: syncope Rate (beats per minute): 72 Rhythm: normal sinus Findings: no acute ischemic change, no ectopy, other Comparison ECG Date: earlier today at 1500 Change: no significant change ED Course 1937: The patient was evaluated in room A11A. A complete history and physical exam was performed. 2119: I reevaluated the patient. I discussed the results with her including her elevated D dimer. She will go for a chest CT. 2128: Zofran Inj 4 mg IV. 2148: NSS 500 ml @ 999 mls/hr IV. 2154: I reevaluated the patient. While lying down, she became bradycardic in the 50s and her blood pressure was 85 systolic. She complained of feeling lightheaded and chest pressure. She had an EKG at the time which showed sinus bradycardia at a rate of 59 with persistent MT depressions and no ectopy. The pressure has gone away now. She feels like she has indigestion. She is now in the 100s systolic with fluids infusing. 2229: I reevaluated the patient. She is now hypertensive. I discussed the test results with her. She verbalized agreement of the treatment plan. She will be evaluated for further management. 2232: I spoke with Dr. Stephens of [facility] hospitalist service. We discussed the patient and her results. The patient will be further evaluated by him. Medical Decision This is a 66-year-old female presents with a syncopal episode and chest pain. Differential diagnosis includes pulmonary embolism, OK, dysrhythmia, metabolic derangement, unstable angina, aortic dissection, orthostatic hypotension, alcohol intoxication. I did perform a limited focused review of portions of the patient's old chart on the electronic medical record. The patient was here this afternoon for high blood pressure, chest pain, and flashes in her left eye. She was discharged home after evaluation. She was given hydralazine 10 mg IV. I did evaluate the patient as noted above. The patient is presenting after a syncopal episode in the parking lot of a restaurant. She did have one alcoholic beverage. She was also seen here earlier and given IV hydralazine and oral hydralazine. Her blood pressure, however, on initial presentation is elevated with a systolic in the 150s. IV access was established. The patient was placed on a continuous quality assurance monitor final. I did order and personally review the patient's 12-lead EKG and chest x-ray as described above. The patient has some MT depressions but otherwise no acute ischemic changes. I did order and review the patient's blood work as noted in the electronic medical record. Troponin is negative. D-dimer is elevated. After discussion with the patient, I did order a CT of the chest I did review the images myself as well as the radiology report as described above. There is no evidence of pulmonary embolism or aortic dissection. While in the emergency department the patient developed bradycardia and hypotension with a heart rate in the 50s and systolic blood pressure of 85. Initially we did get orthostatic vital signs which showed orthostatic hypotension but the patient was laying in bed for 15 minutes before she became bradycardic and hypotensive. She also developed some chest discomfort and a repeat twelve-lead EKG was obtained. It showed similar findings to her first one. Her chest pain did improve spontaneously and she was given a bolus of normal saline IV after which her blood pressure normalized then later elevated above normal. I did have the pacemaker rep come and evaluate her pacemaker for interrogation. I did recommend hospitalization for further evaluation of her symptoms. I did discuss the case with the hospitalist and lead case manager. Medication Reconcilliation Current Medication List: was personally reviewed by me Blood Pressure Screening Patient's blood pressure: Elevated blood pressure Blood pressure disposition: Referred to PCP Consults Time Called: 2228 Consulting Physician: Dr. Stephens of [facility] hospitalist service Returned Call: 2232 I spoke with him. We discussed the patient and her results. The patient will be further evaluated by him. Impression Primary Impression: Syncope Additional Impressions: Hypotension Acute chest pain Hypokalemia Hyponatremia Scribe Attestation The scribe's documentation has been prepared under my direct and personally reviewed by me in its entirety. I confirm that the note above accurately reflects all work, treatment, procedures, and medical decision making performed by me. Departure Information Dispostion Being Evaluated By Hospitalist Referrals RV. Winters MD (PCP) Problem Qualifiers Primary Impression: Syncope Syncope type: unspecified Qualified Codes: R55 - Syncope and collapse Additional Impressions: Hypotension Hypotension type: unspecified hypotension type Qualified Codes: I95.9 - Hypotension, unspecified
[2017-02-09] VITALS (11 sets, daily range): BP systolic 132–211; BP diastolic 68–102; PULSE 63–86; TEMP 36.5–37.2; O2SAT 95–99; Ht 152.4 cm; Wt 50.2 kg
[2017-02-09] MEDS: LORAZEPAM 1 MG TAB PO PRN ×3 (01:02→22:17)
[2017-02-09] MEDS: NSS + 20MEQ KCL 1000ML 1,000 ML IV SCH ×2 (01:54→11:37)
[2017-02-09] MEDS ORDERED: PNEUMOCOCCAL POLYSACCHARIDES 25 MCG/0.5 ML VIAL/SYR IM. ONE (03:45)
[2017-02-09] MEDS ORDERED: PNEUMOCOCCAL ADMINISTRATION CHARGE ONE (03:45)
[2017-02-09] MEDS ORDERED: IV FLUIDS COMPLETED PRN (04:00)
[2017-02-09 07:55] LABS: BASO % 0.6 %; BASO ABS # 0.03 K/uL (0-0.2); COMPLETE YES; EOS % 4.9 %; HEMATOCRIT 33.3 % (37-47); IG% 0.4 %; LYMPH % 26.3 %; LYMPH ABS # 1.35 K/uL (1.2-3.4); MEAN CELL VOLUME 86.3 fL (80-100); MEAN CORPUSCULAR HEMOGLOBIN 30.3 pg (25-34); MEAN CORPUSCULAR HGB CONC 35.1 g/dl (32-36); MEAN PLATELET VOLUME 8.4 fL (7.4-10.4); MONO % 12.7 %; NEUT % 55.1 %; PLATELET COUNT 319 K/uL (130-400); RED BLOOD COUNT 3.86 M/uL (4.2-5.4); WHITE BLOOD COUNT 5.13 K/uL (4.8-10.8)
[2017-02-09 08:14] LABS: INR 0.9 (0.9-1.1)
[2017-02-09 08:34] LABS: CALCIUM 8.7 mg/dl (8.5-10.1); CREATININE 0.68 mg/dl (0.60-1.20); MAGNESIUM 2.1 mg/dl (1.8-2.4)
[2017-02-09 08:36] LABS: CKMB/CK RATIO 1.1 (0-3.0)
[2017-02-09] MEDS: MECLIZINE HCL 25 MG TAB PO SCH (08:48)
[2017-02-09] MEDS: BuPROPion XL 150 MG TABCR PO SCH (08:50)
[2017-02-09] MEDS: ENOXAPARIN 40 MG/0.4 ML SYR SC SCH (08:50)
--- NOTE | 2017-02-09 09:40 | Neurology Consultation ---
Neurology Consultation Date of Consultation: Feb 09, 2017. Attending Physician: Daljit Stephens M.D. Primary Care Physician: RV. Winters MD Reason for Consultation: Patient is a 66-year-old, who I was asked to see at the request of Dr. Stephens, for neurologic consultation regarding syncope. History of Present Illness Source: patient, clinic records, hospital records The patient has had a concussion back in March of 2013. She saw Dr. Salazar briefly at that time and has been having some intermittent symptoms since. She follows regularly with Dr. Smith for chronic dizziness (which is a mixture vertiginous and non vertiginous/lightheaded symptoms), nonspecific intermittent headaches, and intermittent double and blurry vision. She has seen a number of ophthalmologists and artificial stone setter including a neuro bus system operator this year at [facility], Dr. Garcia, who diagnosed "basilar migraine". She has been evaluated for myasthenia gravis and that has been unremarkable. She has had some issues with anxiety and depression because of her medical problems and lack of ability to work and earn an income. This week she has had some issues with some flashing lights in her left eye intermittently. She has had some fatigue and nausea problems. In the morning of February 08, she went to see her eye doctor because of the light issues. Blood pressure was elevated she was sent to the emergency room. There her blood pressure was as high as 204/111. She was given IV hydralazine 10 milligrams. The patient had also taken and oral hydralazine pill. She left around 1730 hours feeling a little better and her blood pressure was about 171/ 91 before she left. Being hungry she went out to eat with a friend and had chicken wings and 1 small vodka drink. She states that she drank this 1 alcoholic drink over a 30 minutes time frame. Well leading she felt somewhat nauseated and lightheaded. She was walking to the parking lot when she had an overwhelming sense of weakness all over, felt that her vision was leaving and very lightheaded. She ended up passing out in the parking lot before she reached her car and was apparently out for about a minute. She was brought to the emergency room and arrived at 1944 hours with a blood pressure of 152/99, temperature 36.6, pulse 76, respiratory rate 18, and O2 saturation 97 percent. Neurologic examination was unremarkable with no focal findings, meningeal signs , or encephalopathy. Chest x-ray was unremarkable. CT scan of the chest, because of chest pain, showed no evidence of pulmonary embolism. The CBC was unremarkable. Chem profile revealed markedly elevated liver enzymes. Her alcohol level was 49.5. Five noted that if her liver enzymes earlier in the year were only mildly elevated, but not normal. In January Lyme antibody titer, hepatitis-C, and rheumatoid factor were unremarkable. Currently, the patient feels back to baseline with minimal lightheadedness. She has no new pain, weakness, or numbness. She has no new vision problems, speech or mentation problems. She has no incontinence. Past Medical/Surgical History Medical Problems: (1) Abdominal discomfort in right lower quadrant Status: Acute (2) Acute chest pain Status: Acute (3) Central chest pain Status: Acute (4) Chest pain Status: Acute (5) HTN (hypertension) Status: Acute (6) Hypertensive encephalopathy Status: Acute (7) Hypokalemia Status: Acute (8) Hyponatremia Status: Acute (9) Hypotension Status: Acute (10) Precordial chest pain Status: Acute (11) Shortness of breath Status: Acute (12) Syncope Status: Acute (13) Vertigo Status: Acute Social History Problems: (1) Status post colonoscopy Status: Acute Coronary artery disease Hypertension Depression with anxiety, on bupropion 300 milligram XR daily as well as Lamictal 400 milligrams daily Asthma 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 Meclizine does help some. History of syncope multiple times in the past most recently 2 months ago prior to admission Post abdominal hysterectomy Aortocoronary bypass Tonsillectomy Family History Mother age 85 with complications of severe COPD Father age 83 with coronary disease and multiple MIs. Social History Patient quit cigarette smoking at age 36. She will have 1 light beer per day with occasionally more on the weekend. 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" Smoking Status: Former smoker Smokeless Tobacco Use: No Alcohol Use: occasionally Drug Use: none Marital Status: single Housing Status: lives alone Occupation Status: unemployed Allergies Coded Allergies: Lactose (Verified Allergy, Intermediate, GI UPSET, DIARRHEA, INTESTINAL PAIN, 02/08/17) Metronidazole (Verified Allergy, Unknown, ., 02/08/17) Moxifloxacin (Verified Allergy, Unknown, unnknown, 02/08/17) Nitroglycerin (Verified Allergy, Unknown, SEVERE HYPOTENSION, 02/08/17) Penicillins (Verified Allergy, Unknown, 02/08/17) Promethazine (Verified Allergy, Unknown, hallucinations, 02/08/17) Soy Allergy (Verified Allergy, Unknown, ANAPHYLAXIS, 02/08/17) Current Inpatient Medications Current Inpatient Medications Medications (Trade) Dose Ordered Sig/Trip Route Start Time Stop Time Status Last Admin Dose Admin Ioversol (Optiray 320) 111 ml UD PRN IV 02/08/17 21:30 02/12/17 21:29 Enoxaparin Sodium (Lovenox Inj) 40 mg Q24H SC 02/09/17 09:00 03/11/17 08:59 02/09/17 08:50 40 MG Potassium Chloride/Sodium Chloride 1,000 ml @ 100 mls/hr Q10H IV 02/09/17 01:00 03/11/17 00:59 02/09/17 01:54 100 MLS/HR Acetaminophen (Tylenol Tab) 650 mg Q4H PRN PO 02/08/17 23:30 03/10/17 23:29 Lamotrigine (Lamictal Tab) 400 mg DAILY PO 02/09/17 09:00 03/11/17 08:59 02/09/17 08:48 400 MG Lorazepam (Ativan Tab) 2 mg Q4 PRN PO 02/08/17 23:30 03/10/17 23:29 02/09/17 01:02 2 MG Meclizine HCl (Antivert Tab) 50 mg QAM PO 02/09/17 09:00 03/11/17 08:59 02/09/17 08:48 50 MG Ondansetron HCl (Zofran Tab) 8 mg Q6H PRN PO 02/08/17 23:30 03/10/17 23:29 Miscellaneous Information (Order Awaiting Action) 1 ea QS N/A 02/09/17 08:00 03/11/17 07:59 Bupropion HCl (Wellbutrin-Xl Tab) 150 mg QAM PO 02/09/17 09:00 03/11/17 08:59 02/09/17 08:50 150 MG Miscellaneous (Iv Fluids Completed) 1 ea PRN PRN N/A 02/09/17 04:00 02/09/18 03:59 Review of Systems Constitutional: + fatigue, No fever, No weakness Eyes: No worsening of vision, No diplopia ENT: No tinnitus, No trouble swallowing Respiratory: No cough, No shortness of breath Cardiovascular: No palpitations Abdomen: No pain, No nausea Musculoskeletal: No joint pain, No muscle pain Genitourinary - Female: No dysuria, No urinary incontinence Neurologic: + balance problems, No memory loss, No weakness, No numbness/ tingling, No vertigo Psychiatric: + depression symptoms, + anxiety Endocrine: + fatigue Hematologic / Lymphatic: No abnormal bleeding/bruising Integumentary: No rash Allergic / Immunologic: No hives Physical Exam Vital Signs (Past 24 Hrs): Date Time Temp Pulse Resp B/P (MAP) Pulse Ox O2 Delivery O2 Flow Rate FiO2 02/09/17 07:27 37.2 72 18 138/86 (103) 95 Room Air 02/09/17 04:00 36.7 63 16 132/68 (89) 96 02/09/17 04:00 Room Air 02/09/17 00:47 36.5 77 18 157/89 (111) 98 02/09/17 00:45 Room Air 02/09/17 00:28 81 18 147/83 02/08/17 22:25 146/77 02/08/17 22:20 78 16 97 02/08/17 21:50 71 18 100/61 02/08/17 21:46 52 85/39 02/08/17 21:30 77 148/89 81 155/82 83 129/74 02/08/17 21:19 74 18 134/76 96 Room Air 02/08/17 20:54 96 Room Air 02/08/17 19:44 36.6 76 18 152/99 97 Room Air 02/08/17 19:36 73 The patient is right-handed. The patient is awake and alert. Speech is normal without aphasia or dysarthria. Mentation and thought processes are intact with orientation and normal fund of knowledge. Mood and affect seem normal and appropriate. Appearance and grooming are normal. The discs are sharp with positive venous pulsations bilaterally. There are no exudates, hemorrhages, or blood vessel changes seen. Pupils are 4mm bilaterally and reactive to light. Extraocular eye muscles are intact without nystagmus. Visual acuity and visual leonard seem normal grossly to confrontation. There are no deficits to sensation of the face bilaterally. Corneal reflexes are positive bilaterally. Facial strength and symmetry is normal bilaterally. Hearing seems intact grossly to voice and finger rub. Palate moves well without asymmetry. There is normal sternocleidomastoid and trapezius strength bilaterally. Tongue is midline with good strength bilaterally. Neck is with full range of motion without discomfort. There are no cervical bruits. There are no cranial or ocular bruits. Heart is without murmur. Cervical, thoracic, and lumbar spine are nontender to palpation. Gait narrow based and stable. Stance with feet together and eyes open is stable as well. With outstretched arms there is no drift. There are no resting, postural, or action tremors. There is no ataxia with [id number] testing. There is good facility in the hands. There are no abnormal involuntary movements noted. Motor strength is 5/5 diffusely in the arms bilaterally including deltoids, biceps, brachioradialis, wrist flexors and extensors, vp patient, and intrinsic hand muscles. Motor strength is 5/5 diffusely in the legs bilaterally including hip flexors, quadriceps, hamstring, gastrocnemius, tibialis anterior, tibialis posterior, and peroneii muscles bilaterally. Toe extensors are normal and there is good bulk in the extensor digitorum brevis muscle bilaterally. The limbs have good tone without rigidity or spasticity, and there is no atrophy noted. Muscle bulk is normal, there is no tenderness, no myotonia noted to percussion, and no fasciculations seen. Sensory examination is intact to pin and touch throughout all four limbs. Reflexes are 2/4 in the biceps, triceps, brachioradialis, quadriceps, and Achilles tendons bilaterally. Toes are downgoing with plantar stimulation bilaterally. Peripheral pulses are present and of normal quality distally in all four limbs. There is no peripheral edema noted. Laboratory Results Past 24 Hours: 02/09/17 07:26 Red Blood Count 3.86, Mean Corpuscular Volume 86.3, Mean Corpuscular Hemoglobin 30.3, Mean Corpuscular Hemoglobin Concent 35.1, Mean Platelet Volume 8.4, Neutrophils (%) (Auto) 55.1, Lymphocytes (%) (Auto) 26.3, Monocytes (%) (Auto) 12.7, Eosinophils (%) (Auto) 4.9, Basophils (%) (Auto) 0.6, Neutrophils # (Auto ) 2.83, Lymphocytes # (Auto) 1.35, Monocytes # (Auto) 0.65, Eosinophils # (Auto ) 0.25, Basophils # (Auto) 0.03 02/09/17 07:26 Test 02/08/17 20:16 02/09/17 07:26 02/09/17 08:57 D-Dimer 520 ug/L FEU (0-500) Ethyl Alcohol mg/dL 49.5 mg/dl (0-3) White Blood Count 5.13 K/uL (4.8-10.8) Red Blood Count 3.86 M/uL (4.2-5.4) Hemoglobin 11.7 g/dL (12.0-16.0) Hematocrit 33.3 % (37-47) Mean Corpuscular Volume 86.3 fL (80-100) Mean Corpuscular Hemoglobin 30.3 pg (25-34) Mean Corpuscular Hemoglobin Concent 35.1 g/dl (32-36) Platelet Count 319 K/uL (130-400) Mean Platelet Volume 8.4 fL (7.4-10.4) Neutrophils (%) (Auto) 55.1 % Lymphocytes (%) (Auto) 26.3 % Monocytes (%) (Auto) 12.7 % Eosinophils (%) (Auto) 4.9 % Basophils (%) (Auto) 0.6 % Neutrophils # (Auto) 2.83 K/uL (1.4-6.5) Lymphocytes # (Auto) 1.35 K/uL (1.2-3.4) Monocytes # (Auto) 0.65 K/uL (0.11-0.59) Eosinophils # (Auto) 0.25 K/uL (0-0.5) Basophils # (Auto) 0.03 K/uL (0-0.2) RDW Standard Deviation 46.7 fL (36.4-46.3) RDW Coefficient of Variation 14.7 % (11.5-14.5) Immature Granulocyte % (Auto) 0.4 % Immature Granulocyte # (Auto) 0.02 K/uL (0.00-0.02) Prothrombin Time 10.0 SECONDS (9.0-12.0) Prothromb Time International Ratio 0.9 (0.9-1.1) Activated Partial Thromboplast Time 26.4 SECONDS (21.0-31.0) Partial Thromboplastin Ratio 1.0 Anion Gap 7.0 mmol/L (3-11) Est Creatinine Clear Calc Drug Dose 59.2 ml/min Estimated GFR () 106.4 Estimated GFR (Non- 91.8 BUN/Creatinine Ratio 15.0 (10-20) Calcium Level 8.7 mg/dl (8.5-10.1) Magnesium Level 2.1 mg/dl (1.8-2.4) Total Creatine Kinase 56 U/L (26-192) Creatine Kinase MB 0.6 ng/ml (0.5-3.6) Creatine Kinase MB Ratio 1.1 (0-3.0) Troponin I < 0.015 ng/ml (0-0.045) Impression 1. Syncope February 08. This was likely vasovagal but I cannot rule out orthostasis. Her alcohol level was high when she came to the ER and her liver enzymes are markedly abnormal. She had a history of hypertension with hydralazine orally and IV prior to the event. She had some nausea and lightheadedness worse with standing and walking. There is no evidence to suggest a seizure. She has no signs or symptoms consistent with stroke either. 2. Alcohol use. Given these liver enzymes and her alcohol level, the with a history of only 1 drink, either she has a significant liver/metabolic intolerance to low amounts of alcohol or she is drinking more than she lets on. 3. Multiple chronic neurologic issues including headaches, vertiginous symptoms , double and blurry vision, and others. These are stable and she is followed closely by Dr. Smith as an outpatient. Plan 1. I really see no need for additional neurologic testing at this time, unless she has additional clinical symptomatology. 2. Follow up with Dr. Smith as an outpatient. Please contact me if I can be of further assistance on this case
--- NOTE | 2017-02-09 11:26 | Cardiology Consultation ---
Cardiology Consultation Date of Consultation: Feb 09, 2017. Requesting Physician: Jolly Reason for Consultation: syncope History of Present Illness The patient is a 66-year-old woman with an extensive history of dizziness and syncope who was admitted overnight for an episode of syncope. The patient has struggled for years with symptoms of syncope and dizziness. Episodes defer in character but recently she has had some improvement in these symptoms. In fact , under direction of her new computer tape librarian she has actually had a significant reduction in overall dizzy spells. Yesterday she was at her computer tape librarian office when she was noted to have elevated blood pressure. The patient presented for evaluation of some visual disturbance in her left eye but based on her high blood pressures was advised to seek medical attention at [facility]. There she was discovered to be hypertensive and administered 2 doses of hydralazine. Patient was subsequently discharged but returned later in the evening after suffering a syncopal episode. This episode occurred after eating dinner. The patient states that at some point after eating dinner which did involve 1 alcoholic drink, she began to feel somewhat lightheaded and attempted to walk to her car. EN route the patient apparently lost consciousness. Upon awakening she felt poorly did have some mild gastrointestinal disturbance. She was brought to [facility] where her initial vital signs were normal. She was later felt to have quite variable blood pressures and admitted to the hospital for observation. The patient continues to feel poorly, but has difficulty characterizing any specific symptoms. She was evaluated by the neurologist this morning and felt fine during the conversation. Part of the examination involves standing upright for period of time and she felt well. Soon as the neurologist left she began to feel somewhat dizzy, lightheaded and sweaty on the back of her neck. The patient has been under lot of stress recently. She has suffered a in the family, with an automobile accident and has constant concerns regarding her financial situation. She has had some mild visual disturbance recently which she characterizes as a flashing light in her left eye. She previously had some symptoms of abdominal discomfort at nighttime but these appear to have resolved. She claims to be eating well and has no nausea or vomiting. She claims to have normal bowel habits. She does not describe symptoms associated with changing position. She does monitor her blood pressure at home periodically and generally feels that it is low. However, her perception of low generally involves systolic blood pressures in the 140s. She generally does not take hydralazine. 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 Lives independently History of DUI Review of Systems She appears reported some abdominal complaints which occurred primarily at nighttime. These were mostly left upper quadrant in nature. They are not exclusively associated with eating. All Other Systems: Reviewed and Negative Allergies Coded Allergies: Lactose (Verified Allergy, Intermediate, GI UPSET, DIARRHEA, INTESTINAL PAIN, 02/08/17) Metronidazole (Verified Allergy, Unknown, ., 02/08/17) Moxifloxacin (Verified Allergy, Unknown, unnknown, 02/08/17) Nitroglycerin (Verified Allergy, Unknown, SEVERE HYPOTENSION, 02/08/17) Penicillins (Verified Allergy, Unknown, 02/08/17) Promethazine (Verified Allergy, Unknown, hallucinations, 02/08/17) Soy Allergy (Verified Allergy, Unknown, ANAPHYLAXIS, 02/08/17) Medications Current Inpatient Medications Medications (Trade) Dose Ordered Sig/Trip Route Start Time Stop Time Status Last Admin Dose Admin Ioversol (Optiray 320) 111 ml UD PRN IV 02/08/17 21:30 02/12/17 21:29 Enoxaparin Sodium (Lovenox Inj) 40 mg Q24H SC 02/09/17 09:00 03/11/17 08:59 02/09/17 08:50 40 MG Potassium Chloride/Sodium Chloride 1,000 ml @ 100 mls/hr Q10H IV 02/09/17 01:00 03/11/17 00:59 02/09/17 01:54 100 MLS/HR Acetaminophen (Tylenol Tab) 650 mg Q4H PRN PO 02/08/17 23:30 03/10/17 23:29 Lamotrigine (Lamictal Tab) 400 mg DAILY PO 02/09/17 09:00 03/11/17 08:59 02/09/17 08:48 400 MG Lorazepam (Ativan Tab) 2 mg Q4 PRN PO 02/08/17 23:30 03/10/17 23:29 02/09/17 01:02 2 MG Meclizine HCl (Antivert Tab) 50 mg QAM PO 02/09/17 09:00 03/11/17 08:59 02/09/17 08:48 50 MG Ondansetron HCl (Zofran Tab) 8 mg Q6H PRN PO 02/08/17 23:30 03/10/17 23:29 Miscellaneous Information (Order Awaiting Action) 1 ea QS N/A 02/09/17 08:00 03/11/17 07:59 Bupropion HCl (Wellbutrin-Xl Tab) 150 mg QAM PO 02/09/17 09:00 03/11/17 08:59 02/09/17 08:50 150 MG Miscellaneous (Iv Fluids Completed) 1 ea PRN PRN N/A 02/09/17 04:00 02/09/18 03:59 Physical Exam Vital Signs Past 12 Hours Date Time Temp Pulse Resp B/P (MAP) Pulse Ox O2 Delivery O2 Flow Rate FiO2 02/09/17 11:04 37.0 76 20 171/91 (117) 96 Room Air 02/09/17 07:27 37.2 72 18 138/86 (103) 95 Room Air 02/09/17 04:00 36.7 63 16 132/68 (89) 96 02/09/17 04:00 Room Air 02/09/17 00:47 36.5 77 18 157/89 (111) 98 02/09/17 00:45 Room Air 02/09/17 00:28 81 18 147/83 She is alert and oriented x3. Mood affect appear normal. She answered all questions appropriately. HEENT: Sclerae are anicteric. Pupils are equal and reactive to light and accommodation. Extraocular movements were intact. Neuro: Cranial nerves intact Neck: Examination of the submandibular region did not reveal any significant lymphadenopathy. Carotids are palpable bilaterally and free of bruits on auscultation. There was no evidence of jugular venous distention. The thyroid was not enlarged. Lungs: Lungs are clear to auscultation bilaterally. There are no rales wheezes or rhonchi. She has normal respiratory effort without use of accessory muscles. There is normal pulmonary excursion. Cardiac: The rhythm was regular. S1 and S2 were normal. There are no murmurs on examination. The PMI was not markedly displaced on palpation. Abdomen: The abdomen was soft and nontender. Extremities: Patient has bilateral radial pulses that are equal in intensity. There is no evidence cyanosis or clubbing. There was no evidence of significant peripheral edema bilaterally. Skin: There are no rashes noted on examination today. Data Laboratory Results: Last 24 Hours Test 02/08/17 20:16 02/09/17 07:26 White Blood Count 8.47 K/uL 5.13 K/uL Red Blood Count 4.42 M/uL 3.86 M/uL Hemoglobin 13.4 g/dL 11.7 g/dL Hematocrit 38.0 % 33.3 % Mean Corpuscular Volume 86.0 fL 86.3 fL Mean Corpuscular Hemoglobin 30.3 pg 30.3 pg Mean Corpuscular Hemoglobin Concent 35.3 g/dl 35.1 g/dl Platelet Count 378 K/uL 319 K/uL Mean Platelet Volume 8.5 fL 8.4 fL Neutrophils (%) (Auto) 75.3 % 55.1 % Lymphocytes (%) (Auto) 9.3 % 26.3 % Monocytes (%) (Auto) 9.9 % 12.7 % Eosinophils (%) (Auto) 4.6 % 4.9 % Basophils (%) (Auto) 0.5 % 0.6 % Neutrophils # (Auto) 6.38 K/uL 2.83 K/uL Lymphocytes # (Auto) 0.79 K/uL 1.35 K/uL Monocytes # (Auto) 0.84 K/uL 0.65 K/uL Eosinophils # (Auto) 0.39 K/uL 0.25 K/uL Basophils # (Auto) 0.04 K/uL 0.03 K/uL RDW Standard Deviation 45.1 fL 46.7 fL RDW Coefficient of Variation 14.5 % 14.7 % Immature Granulocyte % (Auto) 0.4 % 0.4 % Immature Granulocyte # (Auto) 0.03 K/uL 0.02 K/uL Prothrombin Time 10.0 SECONDS 10.0 SECONDS Prothromb Time International Ratio 0.9 0.9 Activated Partial Thromboplast Time 25.8 SECONDS 26.4 SECONDS Partial Thromboplastin Ratio 1.0 1.0 D-Dimer 520 ug/L FEU Sodium Level 133 mmol/L 137 mmol/L Potassium Level 3.4 mmol/L 4.0 mmol/L Chloride Level 98 mmol/L 104 mmol/L Carbon Dioxide Level 28 mmol/L 26 mmol/L Anion Gap 7.0 mmol/L 7.0 mmol/L Blood Urea Nitrogen 8 mg/dl 10 mg/dl Creatinine 0.95 mg/dl 0.68 mg/dl Est Creatinine Clear Calc Drug Dose 42.4 ml/min 59.2 ml/min Estimated GFR () 72.8 106.4 Estimated GFR (Non- 62.9 91.8 BUN/Creatinine Ratio 8.8 15.0 Random Glucose 85 mg/dl 92 mg/dl Calcium Level 9.7 mg/dl 8.7 mg/dl Magnesium Level 2.2 mg/dl 2.1 mg/dl Total Bilirubin 0.8 mg/dl Direct Bilirubin 0.4 mg/dl Aspartate Amino Transf (AST/SGOT) 185 U/L Alanine Aminotransferase (ALT/SGPT) 243 U/L Alkaline Phosphatase 1326 U/L Troponin I < 0.015 ng/ml < 0.015 ng/ml Total Protein 7.6 gm/dl Albumin 4.1 gm/dl Ethyl Alcohol mg/dL 49.5 mg/dl Total Creatine Kinase 56 U/L Creatine Kinase MB 0.6 ng/ml Creatine Kinase MB Ratio 1.1 Imaging: CT PE protocol was unremarkable. Chest x-ray did not reveal any acute cardiopulmonary disease. EKG: Sinus rhythm. Telemetry reviewed: No arrhythmia I reviewed her pacemaker interrogation report. No tachyarrhythmias detected. Normal device function. No episodes of sudden Lamont response recorded. Assessment & Plan 1. Syncope: Patient has longstanding history of syncope as well as dizziness. Her initial symptoms of syncope appear to be related to sinus node dysfunction. With implantation of her pacemaker several years ago she has had essentially elimination of her syncopal episodes. She does have prominent dizziness which more recently seems to be related to her ocular disturbance. She has had significant improvement in the symptoms with exercise prescribed by her computer tape librarian as well as corrective glasses. The episode last evening is likely vagally mediated. While the pacemaker will attenuate any drop in her heart rate it cannot eliminate a drop in blood pressure. She had received her hydralazine twice earlier in the day, and had just he consumed alcoholic beverage. This may have predisposed her to periods of hypotension. There is not appear to be any activation of the sudden Lamont response in her pacemaker which would have suggested a typical vagal episode. No tachyarrhythmias were detected either to support an arrhythmic etiology for the event in question. 2. Hypotension: Patient does have fairly labile blood pressures. She monitors her blood pressure occasionally at home and takes hydralazine on a p.r.n. basis. She generally does not take hydralazine as her blood pressures are not significantly elevated. She has come to use this unusual protocol for controlling her blood pressure due to adverse reactions to other medications. She is very hesitant to try a daily medicine due to symptoms she has experienced in the past with hypotension. It is very possible that administration of 2 doses of hydralazine yesterday played some role in her syncope later in the evening. At this point I would not advocate changing her antihypertensive regimen as and she has been quite stable with p.r.n. usage of hydralazine for many years now. 3. Takotsubo cardiomyopathy: This is a remote diagnosis associated with a very stressful event. She is not currently describing symptoms consistent with heart failure. He has not had symptoms of chest discomfort recently. EKG is essentially unchanged. I would not pursue any evaluation for this diagnosis currently. 4. Transaminitis: Patient does have elevated liver function tests including very high alkaline phosphatase. She had previously been complaining of some abdominal discomfort which was left upper quadrant and location. Recently she has felt well. She is not describe symptoms associated with eating yesterday. The etiology of these elevations are unclear but could suggest some biliary pathology.
[2017-02-09] MEDS: ONDANSETRON 4 MG TAB PO PRN ×2 (14:20→22:30)
--- NOTE | 2017-02-09 14:36 | Progress Note ---
Subjective Date of Service: Feb 09, 2017. 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, she has no focal neurologic loss or cardiac symptoms Problem List Medical Problems: (1) Abdominal discomfort in right lower quadrant Status: Acute (2) Acute chest pain Status: Acute (3) Central chest pain Status: Acute (4) Chest pain Status: Acute (5) HTN (hypertension) Status: Acute (6) Hypertensive encephalopathy Status: Acute (7) Hypokalemia Status: Acute (8) Hyponatremia Status: Acute (9) Hypotension Status: Acute (10) Precordial chest pain Status: Acute (11) Shortness of breath Status: Acute (12) Syncope Status: Acute (13) Vertigo Status: Acute Social History Problems: (1) Status post colonoscopy Status: Acute Review of Systems Constitutional: + weakness, No fever, No chills Respiratory: No cough, No shortness of breath Cardiac: No chest pain, No PND, No edema Abdomen: No pain, No nausea, No vomiting, No diarrhea Neurologic: + memory loss, + weakness Psychiatric: + anxiety, + insomnia Objective Vital Signs Date Time Temp Pulse Resp B/P (MAP) Pulse Ox O2 Delivery O2 Flow Rate FiO2 02/09/17 07:27 37.2 72 18 138/86 (103) 95 Room Air 02/09/17 04:00 36.7 63 16 132/68 (89) 96 02/09/17 04:00 Room Air 02/09/17 00:47 36.5 77 18 157/89 (111) 98 02/09/17 00:45 Room Air 02/09/17 00:28 81 18 147/83 02/08/17 22:25 146/77 02/08/17 22:20 78 16 97 02/08/17 21:50 71 18 100/61 02/08/17 21:46 52 85/39 02/08/17 21:30 77 148/89 81 155/82 83 129/74 02/08/17 21:19 74 18 134/76 96 Room Air 02/08/17 20:54 96 Room Air 02/08/17 19:44 36.6 76 18 152/99 97 Room Air 02/08/17 19:36 73 Physical Exam General Appearance: WD/WN, + mild distress Eyes: PERRL, EOMI Respiratory/Chest: chest non-tender, lungs clear, normal breath sounds Cardiovascular: regular rate, rhythm, no murmur Abdomen: normal bowel sounds, non tender, soft Extremities: no pedal edema, no calf tenderness Laboratory Results Last 24 Hours Test 02/08/17 20:16 02/09/17 07:26 White Blood Count 8.47 K/uL 5.13 K/uL Red Blood Count 4.42 M/uL 3.86 M/uL Hemoglobin 13.4 g/dL 11.7 g/dL Hematocrit 38.0 % 33.3 % Mean Corpuscular Volume 86.0 fL 86.3 fL Mean Corpuscular Hemoglobin 30.3 pg 30.3 pg Mean Corpuscular Hemoglobin Concent 35.3 g/dl 35.1 g/dl Platelet Count 378 K/uL 319 K/uL Mean Platelet Volume 8.5 fL 8.4 fL Neutrophils (%) (Auto) 75.3 % 55.1 % Lymphocytes (%) (Auto) 9.3 % 26.3 % Monocytes (%) (Auto) 9.9 % 12.7 % Eosinophils (%) (Auto) 4.6 % 4.9 % Basophils (%) (Auto) 0.5 % 0.6 % Neutrophils # (Auto) 6.38 K/uL 2.83 K/uL Lymphocytes # (Auto) 0.79 K/uL 1.35 K/uL Monocytes # (Auto) 0.84 K/uL 0.65 K/uL Eosinophils # (Auto) 0.39 K/uL 0.25 K/uL Basophils # (Auto) 0.04 K/uL 0.03 K/uL RDW Standard Deviation 45.1 fL 46.7 fL RDW Coefficient of Variation 14.5 % 14.7 % Immature Granulocyte % (Auto) 0.4 % 0.4 % Immature Granulocyte # (Auto) 0.03 K/uL 0.02 K/uL Prothrombin Time 10.0 SECONDS 10.0 SECONDS Prothromb Time International Ratio 0.9 0.9 Activated Partial Thromboplast Time 25.8 SECONDS 26.4 SECONDS Partial Thromboplastin Ratio 1.0 1.0 D-Dimer 520 ug/L FEU Sodium Level 133 mmol/L 137 mmol/L Potassium Level 3.4 mmol/L 4.0 mmol/L Chloride Level 98 mmol/L 104 mmol/L Carbon Dioxide Level 28 mmol/L 26 mmol/L Anion Gap 7.0 mmol/L 7.0 mmol/L Blood Urea Nitrogen 8 mg/dl 10 mg/dl Creatinine 0.95 mg/dl 0.68 mg/dl Est Creatinine Clear Calc Drug Dose 42.4 ml/min 59.2 ml/min Estimated GFR () 72.8 106.4 Estimated GFR (Non- 62.9 91.8 BUN/Creatinine Ratio 8.8 15.0 Random Glucose 85 mg/dl 92 mg/dl Calcium Level 9.7 mg/dl 8.7 mg/dl Magnesium Level 2.2 mg/dl 2.1 mg/dl Total Bilirubin 0.8 mg/dl Direct Bilirubin 0.4 mg/dl Aspartate Amino Transf (AST/SGOT) 185 U/L Alanine Aminotransferase (ALT/SGPT) 243 U/L Alkaline Phosphatase 1326 U/L Troponin I < 0.015 ng/ml < 0.015 ng/ml Total Protein 7.6 gm/dl Albumin 4.1 gm/dl Ethyl Alcohol mg/dL 49.5 mg/dl Total Creatine Kinase 56 U/L Creatine Kinase MB 0.6 ng/ml Creatine Kinase MB Ratio 1.1 Assessment and Plan Syncope and collapse--has been seen by both neurology and cardiology and no further work up in progress as has had extensive work ups in past This pt is on many medications that could be implicated in her subjective symptoms, that also clouded by alcohol intake although modest prior to presentation I am concerned about her ativan use and currently with some hypertension maybe having some withdrawal, if needing meds for anxiety or other there are other long acting meds that could be used, will start some librium and keep prn ativan , adding hydralazine for htn control abnormal LFT's will repeat and follow, appears cellular, will discuss and consider hepatitis testing pt had chest pain that occurred when her significant other arrived, and ECG did not reveal any acute changes of ACS. Her chest pain is mostly related to anxiety and hypertension.
[2017-02-09] MEDS ORDERED: HydrALAZINE HCL 20 MG/ML VIAL ONE (14:42)
[2017-02-09] MEDS ORDERED: HydrALAZINE HCL 20 MG/ML VIAL IV PRN (14:45)
[2017-02-09] MEDS: CHLORDIAZEPOXIDE 25 MG CAP PO SCH ×2 (15:03→20:41)
[2017-02-09] MEDS ORDERED: MoRPHine SULFATE 2 MG/ML CARP IV PRN (15:45)
[2017-02-09] MEDS ORDERED: LORAZEPAM 2 MG/ML 1 ML VIAL IV PRN (15:45)
[2017-02-09] MEDS ORDERED: LORAZEPAM INJ 1 MG in SYRINGE 0.5 ML IV PRN (16:00)
[2017-02-09 16:38] LABS: CKMB/CK RATIO 1.2 (0-3.0)
[2017-02-09] MEDS ORDERED: GI COCKTAIL PO PRN (19:00)
[2017-02-09] MEDS ORDERED: ALUMINUM/MAGNESIUM SUSP 72 ML, LIDOCAINE HCL 2% VISCOUS SOLN 24 ML, BARCODE IDENTIFIER ... PO PRN ×2 (19:45)
[2017-02-09] MEDS ORDERED: CLONAZEPAM 1 MG TAB PO SCH (21:00)
[2017-02-10 00:05] VITALS: BP 145/76; PULSE 62; TEMP 36.8; O2SAT 96
[2017-02-10 05:16] VITALS: BP 148/77; PULSE 61; TEMP 36.8; O2SAT 98
[2017-02-10] MEDS: CHLORDIAZEPOXIDE 25 MG CAP PO SCH ×2 (05:56→13:23)
[2017-02-10 07:37] VITALS: BP_SYST 142; BP_SYST 153; BP_SYST 157; BP_DIAS 80; BP_DIAS 81; BP_DIAS 87; PULSE 51; PULSE 56; PULSE 58; TEMP 36.7; O2SAT 97
[2017-02-10 07:46] LABS: INR 0.9 (0.9-1.1)
[2017-02-10 08:04] LABS: HEMATOCRIT 34.3 % (37-47); MEAN CELL VOLUME 86.8 fL (80-100); MEAN CORPUSCULAR HEMOGLOBIN 29.9 pg (25-34); MEAN CORPUSCULAR HGB CONC 34.4 g/dl (32-36); MEAN PLATELET VOLUME 8.8 fL (7.4-10.4); PLATELET COUNT 324 K/uL (130-400); RED BLOOD COUNT 3.95 M/uL (4.2-5.4)
[2017-02-10 08:14] LABS: BUN/CREATININE RATIO 7.2 (10-20); CALCIUM 9.1 mg/dl (8.5-10.1); CREATININE 0.65 mg/dl (0.60-1.20); POTASSIUM 3.7 mmol/L (3.5-5.1)
[2017-02-10] MEDS: BuPROPion XL 150 MG TABCR PO SCH (08:49)
[2017-02-10] MEDS: MECLIZINE HCL 25 MG TAB PO SCH (08:50)
[2017-02-10] MEDS: ENOXAPARIN 40 MG/0.4 ML SYR SC SCH (08:52)
[2017-02-10] MEDS: ONDANSETRON 4 MG TAB PO PRN (08:52)
[2017-02-10] MEDS: LORAZEPAM 1 MG TAB PO PRN (09:01)
[2017-02-10 09:07] LABS: BASO % 0.9 %; BASO ABS # 0.04 K/uL (0-0.2); COMPLETE YES; EOS % 11.9 %; IG% 0.5 %; LYMPH % 22.3 %; LYMPH ABS # 0.96 K/uL (1.2-3.4); MONO % 18.6 %; NEUT % 45.8 %
[2017-02-10 11:19] VITALS: BP 126/62; PULSE 67; TEMP 36.8; O2SAT 97
[2017-02-10] MEDS ORDERED: LBR25 PO (11:32)
[2017-02-10] MEDS ORDERED: APR25 PO (11:32)
[2017-02-10] MEDS ORDERED: WLLXL150 PO (11:32)
--- NOTE | 2017-02-10 11:33 | Discharge Instructions ---
Discharge Instructions Date of Service Feb 10, 2017. Admission Reason for Admission: Syncope And Collapse Discharge Discharge Diagnosis / Problem: syncope Discharge Goals Goal(s): Diagnostic testing, Therapeutic intervention Activity Recommendations Activity Limitations: resume your previous activity . Current Hospital Diet Patient's current hospital diet: Regular Diet Discharge Diet Recommended Diet: Regular Diet Pending Studies Studies pending at discharge: no Medical Emergencies . Who to Call and When: Medical Emergencies: If at any time you feel your situation is an emergency, please call 911 immediately. . Non-Emergent Contact Non-Emergency issues call your: Primary Care Provider Call Non-Emergent contact if: temperature is above 101, your pain is unusual for you . . "Provider Documentation" section prepared by Mukul Mcdowell. . VTE Core Measure Inpt VTE Proph given/why not?: Unfractionated heparin SQ, SCD's
[2017-02-10 11:58] VITALS: BP 126/62; PULSE 67; TEMP 36.8; O2SAT 97
--- NOTE | 2017-02-10 15:11 | Discharge Summary ---
Discharge Summary Date of Service Feb 10, 2017. Discharge Summary Admission Date: Feb 08, 2017 at 23:19 Discharge Date: Feb 10, 2017 Discharge Disposition: Home Principal Diagnosis: syncope Immunizations: Have You Had Influenza Vaccine: No History of Tetanus Vaccine?: No History of Pneumococcal: No History of Hepatitis B Vaccine: No Consultations: Cardiology and Neurology Medication Reconciliation New Medications: Bupropion HCl (Bupropion HCl Xl) 150 Mg Tabcr 150 MG PO QAM, #30 DOSE 6 Refills Chlordiazepoxide (Chlordiazepoxide HCl) 25 Mg Cap 25 MG PO Q8, #90 CAP please consider tapering slowly Hydralazine Hcl (Apresoline) 25 Mg Tab 25 MG PO TID, #90 TAB 6 Refills Continued Medications: Hydralazine HCl (Hydralazine HCl) 10 Mg Tab 5-10 MG PO Q6H PRN for Hypertension TAKE 5-10 MG EVERY 6 HOURS NEEDED FOR SYSTOLIC BLOOD PRESSURE GREATER THAN 160 Lamotrigine (Lamictal) 200 Mg Tab 400 MG PO DAILY, TAB Lorazepam (Lorazepam) 2 Mg Tab 8-12 MG PO Q4-Q6 PRN for Anxiety Meclizine HCl (Meclizine HCl) 25 Mg Tab 50 MG PO QAM Ondansetron (Ondansetron HCl) 4 Mg Tab 4-8 MG PO Q6H PRN for Nausea or Vomiting Riboflavin (B-2) Unknown Strength Tab 1 TAB PO DAILY Discontinued Medications: Bupropion Hcl (Wellbutrin Xl) 300 Mg Tab 300 MG PO QAM Discharge Exam Review of Systems: Constitutional: No fever, No chills Respiratory: No cough, No sputum, No wheezing Cardiovascular: No chest pain, No edema Psychiatric: + anxiety, No depression symptoms Physical Exam: General Appearance: WD/WN, no apparent distress Neck: supple, no JVD Respiratory/Chest: chest non-tender, lungs clear, normal breath sounds Cardiovascular: regular rate, rhythm, + systolic murmur Neurologic/Psychiatric: alert, oriented x 3 Hospital Course Syncope and collapse--has been seen by both neurology and cardiology and no further work up in progress as has had extensive work ups in past This pt is on many medications that could be implicated in her subjective symptoms, that also clouded by alcohol intake although modest prior to presentation I am concerned about her ativan use and currently with some hypertension maybe having some withdrawal, if needing meds for anxiety or other there are other long acting meds that could be used, did tolerate scheduled librium will discharge on the same and keep prn ativan, adding hydralazine for htn control abnormal LFT's will repeat and follow, appears cellular, will discuss and consider hepatitis testing pt had chest pain that occurred when her significant other arrived, and ECG did not reveal any acute changes of ACS. Her chest pain is mostly related to anxiety and hypertension. recommend discussion of her meds wtih her pcp and counsellor Total Time Spent: Greater than 30 minutes This includes examination of the patient, discharge planning, medication reconciliation, and communication with other providers. Discharge Instructions Please refer to the electronic Patient Visit Report (Discharge Instructions) for additional information.
== END 2017-02-10 13:15 | disposition home or self-care (01) ==
LOC: EDBD 19:25 → C.EDA 19:27 → C.MED 23:19 → ENRESERV 23:56
PROVIDERS: ADMIT Hospitalist; ATTEND Hospitalist
DX: R55 Syncope and collapse (principal); I95.9 Hypotension, unspecified; R07.9 Chest pain, unspecified; E87.1 Hypo-osmolality and hyponatremia; I25.10 Atherosclerotic heart disease of native coronary artery without angina pectoris; F32.9 Major depressive disorder, single episode, unspecified; I10 Essential (primary) hypertension; J45.909 Unspecified asthma, uncomplicated; F41.9 Anxiety disorder, unspecified; Z82.49 Family history of ischemic heart disease and other diseases of the circulatory system; Z84.1 Family history of disorders of kidney and ureter; Z87.891 Personal history of nicotine dependence; Z83.6 Family history of other diseases of the respiratory system; Z98.61 Coronary angioplasty status; Z90.89 Acquired absence of other organs; Z95.5 Presence of coronary angioplasty implant and graft; Z90.710 Acquired absence of both cervix and uterus

== ENCOUNTER → 2017-07-03 | Outpatient (CLI) | payer OTHER ==
[~2017-07-03] MED LIST changes: -ANT25 PEG; +APR25 PO; -BUPRTAB51 PO; +CHLO5CAP19 PO; +HYDR-2977 PO; -HYDR-4322 PO; +HYDR-4716 PO; -LAMO100T16 PO; +LAMO200T35 PO; -LAMO200T38 PO; +LBR25 PO; +METO-157 PO; +WLLXL150 PO
[2017-07-03 17:25] LABS: BASO % 0.6 %; BASO ABS # 0.03 K/uL (0-0.2); EOS % 2.8 %; EOS ABS # 0.14 K/uL (0-0.5); HEMATOCRIT 38.7 % (37-47); HEMOGLOBIN 12.9 g/dL (12.0-16.0); IG# 0.02 K/uL (0.00-0.02); LYMPH % 30.6 %; LYMPH ABS # 1.54 K/uL (1.2-3.4); MEAN CELL VOLUME 89.2 fL (80-100); MEAN CORPUSCULAR HEMOGLOBIN 29.7 pg (25-34); MEAN CORPUSCULAR HGB CONC 33.3 g/dl (32-36); MEAN PLATELET VOLUME 9.3 fL (7.4-10.4); MONO % 12.7 %; MONO ABS # 0.64 K/uL (0.11-0.59); NEUT % 52.9 %; NEUT ABS # 2.67 K/uL (1.4-6.5); PLATELET COUNT 354 K/uL (130-400); RED CELL DISTRIBUTION WIDTH CV 13.6 % (11.5-14.5); RED CELL DISTRIBUTION WIDTH SD 44.8 fL (36.4-46.3); WHITE BLOOD COUNT 5.04 K/uL (4.8-10.8)
[2017-07-03 17:44] LABS: ALBUMIN 3.7 gm/dl (3.4-5.0); ALT/SGPT 121 U/L (12-78); AST/SGOT 83 U/L (15-37); BLOOD UREA NITROGEN 10 mg/dl (7-18); CALCIUM 9.5 mg/dl (8.5-10.1); CARBON DIOXIDE 28 mmol/L (21-32); CREATININE 0.69 mg/dl (0.60-1.20); GLUCOSE 105 mg/dl (70-99); POTASSIUM 3.7 mmol/L (3.5-5.1); SODIUM 133 mmol/L (136-145)
[2017-07-03 17:47] LABS: ALKALINE PHOSPHATASE 887 U/L (45-117); TOTAL PROTEIN 7.5 gm/dl (6.4-8.2)
== END | disposition home or self-care (01) ==
LOC: C.LAB1850 16:01
PROVIDERS: ATTEND Physician Assistant
DX: R31.29 Other microscopic hematuria (principal); R68.89 Other general symptoms and signs

== ENCOUNTER 2017-07-09 12:29 | Emergency (ER) | payer OTHER ==
[~2017-07-09] VITALS: Ht 152.4 cm; Wt 50.2 kg
[~2017-07-09 12:29] MED LIST changes: -CHLO5CAP19 PO; -HYDR-4716 PO; -METO-157 PO
[2017-07-09 12:38] VITALS: TEMP 36.8; Ht 152.4 cm; Wt 50.2 kg
[2017-07-09] MEDS ORDERED: SODIUM CHLORIDE 0.9% 1000ML 1,000 ML IV STA (12:45)
--- NOTE | 2017-07-09 12:47 | EMERGENCY ROOM VISIT NOTE ---
History Report prepared by Moe: John Jacobs Under the Supervision of: Dr. Jose Henderson M.D. First contact with patient: 12:32 History of Present Illness The patient is a 66 year old female who presents to the Emergency Room with complaints of worsening generalized weakness that began last night. The patient states that she has also been losing significant amounts of weight over the past couple of weeks. She did visit with her primary care physician on the 30 of May, over 1 month ago for weakness and influenza-like symptoms. The patient states that her weakness worsened significantly last night after taking her first Dosage of Cymbalta. She also experienced nausea last night with intermittent chest "pressure." Per EMS, when en route to the hospital the patient's blood pressure dipped into the 80's systolically. She has no pain at all at this time. The patient has an extensive history of antidepressant usage and has recently had multiple medication changes. She notes that she was on Lorazepam for many years and was started on Librium to taper off of Lorazepam. Since February of last year, 5 months ago she has been being tapered off of the Librium. She is also being tapered off of Wellbutrin. She does follow with a Psychiatrist for her antidepressant usage. Source of History: patient, EMS Onset: Last night Position: other (Generalized) Quality: other (Weakness) Timing: worsening Associated Symptoms: + chest pain (last night), + nausea Review of Systems See HPI for pertinent positives & negatives. A total of 10 systems reviewed and were otherwise negative. Past Medical & Surgical Medical Problems: (1) Abdominal hysterectomy (2) ANXIETY STATE NOS (3) AORTOCORONARY BYPASS (4) ASTHMA, UNSPECIFIED (5) Chest pressure (6) Coronary artery disease (7) DEPRESS DISORDER-UNSPEC (8) HYPERTENSION NOS (9) Implantation of cardiac pacemaker (10) Syncope and collapse (11) Tonsillectomy Family History Cancer FH: CAD (coronary artery disease) FHx: kidney disease Social History Smoking Status: Never Smoker Alcohol Use: occasionally Drug Use: none Marital Status: single Housing Status: lives alone Occupation Status: unemployed Current/Historical Medications Scheduled Bupropion HCl (Bupropion HCl Xl), 150 MG PO QAM Chlordiazepoxide (Librium), 5 MG PO TID Hydralazine Hcl (Apresoline), 25 MG PO TID Lamotrigine (Lamictal), 400 MG PO DAILY Riboflavin (B-2), 1 TAB PO DAILY Scheduled PRN Hydralazine HCl (Hydralazine HCl), 5-10 MG PO Q6H PRN for Hypertension Hydralazine HCl (Hydralazine HCl), 25 MG PO TID PRN for HYPERTENSION Metoclopramide (Reglan), 10 MG PO Q6H PRN for Nausea Ondansetron (Ondansetron HCl), 4-8 MG PO Q6H PRN for Nausea or Vomiting Allergies Coded Allergies: Lactose (Verified Allergy, Intermediate, GI UPSET, DIARRHEA, INTESTINAL PAIN, 07/09/17) Metronidazole (Verified Allergy, Unknown, ., 07/09/17) Moxifloxacin (Verified Allergy, Unknown, unnknown, 07/09/17) Nitroglycerin (Verified Allergy, Unknown, SEVERE HYPOTENSION, 07/09/17) Penicillins (Verified Allergy, Unknown, 07/09/17) Promethazine (Verified Allergy, Unknown, hallucinations, 07/09/17) Soy Allergy (Verified Allergy, Unknown, ANAPHYLAXIS, 07/09/17) Physical Exam Vital Signs Date Time Temp Pulse Resp B/P (MAP) Pulse Ox O2 Delivery O2 Flow Rate FiO2 07/09/17 15:36 68 20 136/56 98 Room Air 07/09/17 13:26 60 16 201/84 98 Room Air 07/09/17 13:00 98 Room Air 07/09/17 13:00 179/91 07/09/17 12:57 195/96 07/09/17 12:55 185/106 07/09/17 12:54 194/101 07/09/17 12:53 185/97 07/09/17 12:53 61 20 185/97 98 60 194/101 70 195/96 07/09/17 12:45 189/86 07/09/17 12:39 59 07/09/17 12:38 36.8 51 18 200/97 99 Room Air 07/09/17 12:38 208/94 07/09/17 12:38 99 Room Air Physical Exam GENERAL: Awake, alert, and cachectic in appearance. HENT: Normocephalic, atraumatic. Oropharynx unremarkable. EYES: Normal conjunctiva. Sclera non-icteric. NECK: Supple. No nuchal rigidity. FROM. No JVD. RESPIRATORY: Clear to auscultation. CARDIAC: Regular rate, normal rhythm. Extremities warm and well perfused. Pulses equal. ABDOMEN: Soft, non-distended. No tenderness to palpation. No rebound or guarding. No masses. RECTAL: Deferred. MUSCULOSKELETAL: Chest examination reveals no tenderness. The back is symmetrical on inspection without obvious abnormality. There is no CVA tenderness to palpation. No joint edema. LOWER EXTREMITIES: Calves are equal size bilaterally and non-tender. No edema. No discoloration. NEURO: Normal sensorium. No sensory or motor deficits noted. SKIN: No rash or jaundice noted. Medical Decision & Procedures ER Provider Diagnostic Interpretation: Radiology results as stated below per my review and radiologist interpretation: CT SCAN OF THE ABDOMEN AND PELVIS WITH IV CONTRAST CLINICAL HISTORY: Elevated hepatic transaminases. COMPARISON STUDY: Abdominal CT dated 07/30/2016. TECHNIQUE: Following the IV administration of 95 cc of Optiray 320, CT scan of the abdomen and pelvis is performed from the lung bases to the proximal femora. Images are reviewed in the axial, sagittal, and coronal planes. IV contrast was administered without complication. A dose lowering technique was utilized adhering to the principles of ALARA. CT DOSE: 307.26 mGycm FINDINGS: Lung bases: The heart is top normal in size and without pericardial effusion. Pacemaker leads are noted. The lung bases are clear. Liver: The contrast-enhanced liver is normal in size, contour, and attenuation. Fatty infiltration is seen adjacent to falciform ligament. There is no intrahepatic biliary ductal dilatation. The hepatic veins and portal veins are patent. There is mild periportal edema, likely related to hydration status. Gallbladder: Unremarkable. Spleen: Normal in size and attenuation. Pancreas: Unremarkable. Adrenal glands: A 2.0 cm left adrenal adenoma is unchanged. The right adrenal gland is normal in appearance. Kidneys: The contrast enhanced kidneys are normal in size and without hydronephrosis. The kidneys enhance symmetrically. Abdominal vasculature: The abdominal aorta is normal in course and caliber noting mild atherosclerotic calcification. Bowel: There is mild colonic diverticulosis without CT evidence of acute diverticulitis. There is mild diffuse pericolonic infiltration suggest a nonspecific pancolitis. No significant colonic wall thickening is identified. No bowel obstruction is seen. The appendix is not identified and reported surgically absent. Peritoneum: There is no intraperitoneal free air or abdominal ascites. Lymphadenopathy: None. Pelvic viscera: The bladder is normal as visualized. The uterus is surgically absent. No adnexal lesion is seen. A calcified granuloma is seen in the left gluteal soft tissues. Skeletal structures: The skeletal structures are osteopenic. No lytic or blastic lesions are seen. There are bilateral pars defects at L5 with moderate disc space narrowing and grade 1 anterolisthesis at L5-S1. IMPRESSION: 1. Findings suggest a mild nonspecific pancolitis, likely on an infectious or inflammatory basis in this age group. Clinical correlation will be required. 2. No intraperitoneal free air or abdominal ascites is seen. 3. Additional findings as above. Electronically signed by: Johnie Guillermo M.D. 07/09/2017 2:44 PM Dictated Date/Time: 07/09/2017 2:37 PM SINGLE VIEW CHEST CLINICAL HISTORY: Atypical chest pain. FINDINGS: An AP, portable, upright chest radiograph is compared to chest x-ray and chest CT dated 02/08/2017. A 2-lead cardiac pacemaker is unchanged in position and partially obscures the left mid chest. The heart is top normal for projection. The pulmonary vasculature is noncongested. The lungs and pleural spaces are clear. No pneumothorax is seen. The bony thorax is grossly intact. IMPRESSION: No acute cardiopulmonary abnormality. Electronically signed by: Johnie Guillermo M.D. 07/09/2017 1:13 PM Dictated Date/Time: 07/09/2017 1:12 PM Laboratory Results 07/09/17 12:40 Red Blood Count 4.08, Mean Corpuscular Volume 87.0, Mean Corpuscular Hemoglobin 30.4, Mean Corpuscular Hemoglobin Concent 34.9, Mean Platelet Volume 8.8, Neutrophils (%) (Auto) 65.3, Lymphocytes (%) (Auto) 22.3, Monocytes (%) (Auto) 10.9, Eosinophils (%) (Auto) 0.5, Basophils (%) (Auto) 0.5, Neutrophils # (Auto ) 2.70, Lymphocytes # (Auto) 0.92, Monocytes # (Auto) 0.45, Eosinophils # (Auto ) 0.02, Basophils # (Auto) 0.02 07/09/17 12:40 Test 07/09/17 12:40 07/09/17 12:47 07/09/17 12:50 07/09/17 13:00 White Blood Count 4.13 K/uL (4.8-10.8) Red Blood Count 4.08 M/uL (4.2-5.4) Hemoglobin 12.4 g/dL (12.0-16.0) Hematocrit 35.5 % (37-47) Mean Corpuscular Volume 87.0 fL (80-100) Mean Corpuscular Hemoglobin 30.4 pg (25-34) Mean Corpuscular Hemoglobin Concent 34.9 g/dl (32-36) Platelet Count 320 K/uL (130-400) Mean Platelet Volume 8.8 fL (7.4-10.4) Neutrophils (%) (Auto) 65.3 % Lymphocytes (%) (Auto) 22.3 % Monocytes (%) (Auto) 10.9 % Eosinophils (%) (Auto) 0.5 % Basophils (%) (Auto) 0.5 % Neutrophils # (Auto) 2.70 K/uL (1.4-6.5) Lymphocytes # (Auto) 0.92 K/uL (1.2-3.4) Monocytes # (Auto) 0.45 K/uL (0.11-0.59) Eosinophils # (Auto) 0.02 K/uL (0-0.5) Basophils # (Auto) 0.02 K/uL (0-0.2) RDW Standard Deviation 42.4 fL (36.4-46.3) RDW Coefficient of Variation 13.1 % (11.5-14.5) Immature Granulocyte % (Auto) 0.5 % Immature Granulocyte # (Auto) 0.02 K/uL (0.00-0.02) Anion Gap 9.0 mmol/L (3-11) Est Creatinine Clear Calc Drug Dose 74.6 ml/min Estimated GFR () 114.8 Estimated GFR (Non- 99.0 BUN/Creatinine Ratio 12.3 (10-20) Calcium Level 8.7 mg/dl (8.5-10.1) Ferritin 40.3 ng/ml (8.0-388.0) Total Bilirubin 1.0 mg/dl (0.2-1) Direct Bilirubin 0.4 mg/dl (0-0.2) Aspartate Amino Transf (AST/SGOT) 99 U/L (15-37) Alanine Aminotransferase (ALT/SGPT) 143 U/L (12-78) Alkaline Phosphatase 890 U/L (45-117) Total Creatine Kinase 56 U/L (26-192) Creatine Kinase MB 0.7 ng/ml (0.5-3.6) Creatine Kinase MB Ratio 1.3 (0-3.0) Troponin I < 0.015 ng/ml (0-0.045) Total Protein 6.9 gm/dl (6.4-8.2) Albumin 3.4 gm/dl (3.4-5.0) Thyroid Stimulating Hormone (TSH) 1.950 uIu/ml (0.300-4.500) Bedside Lactic Acid Venous 0.78 mmol/L (0.90-1.70) Bedside Glucose 102 mg/dl (70-90) Urine Color YELLOW Urine Appearance CLOUDY (CLEAR) Urine pH 8.5 (4.5-7.5) Urine Specific Blanca 1.007 (1.000-1.030) Urine Protein NEG (NEG) Urine Glucose (UA) NEG (NEG) Urine Ketones NEG (NEG) Urine Occult Blood NEG (NEG) Urine Nitrite NEG (NEG) Urine Bilirubin NEG (NEG) Urine Urobilinogen NEG (NEG) Urine Leukocyte Esterase NEG (NEG) Urine WBC (Auto) 0 /hpf (0-5) Urine RBC (Auto) 0-4 /hpf (0-4) Urine Hyaline Casts (Auto) 1-5 /lpf (0-5) Urine Epithelial Cells (Auto) 0-5 /lpf (0-5) Urine Bacteria (Auto) NEG (NEG) Test 07/09/17 14:52 Hepatitis C Antibody NEG (NEG) Labs reviewed by ED physician. Medications Administered Medications (Trade) Dose Ordered Sig/Trip Route Start Time Stop Time Status Last Admin Dose Admin Sodium Chloride 1,000 ml @ 999 mls/hr Q1H1M STAT IV 07/09/17 12:45 07/09/17 13:45 DC 07/09/17 12:45 999 MLS/HR Hydralazine HCl (Apresoline Tab) 10 mg NOW STAT PO 07/09/17 13:08 07/09/17 13:09 DC 07/09/17 14:01 10 MG Hydralazine HCl (Apresoline Tab) 25 mg NOW STAT PO 07/09/17 13:10 07/09/17 13:11 DC 07/09/17 13:24 25 MG Potassium Chloride (Lisa Ciel Elix) 40 meq NOW STAT PO 07/09/17 13:24 07/09/17 13:25 DC 07/09/17 13:35 40 MEQ Metoclopramide HCl (Reglan Inj) 10 mg NOW STAT IV 07/09/17 13:54 07/09/17 13:55 DC 07/09/17 13:59 10 MG ECG Per My Interpretation Indication: chest pain, weakness, other (Hypotension) Rate (beats per minute): 51 Rhythm: sinus bradycardia Findings: other (Normal Margaret, No SIRI/STD, Old septal infarct) ED Course 1232: Past medical records reviewed. The patient was evaluated in room A10. A complete history and physical examination was performed. 1245: Ordered Sodium Chloride 1000 mL @ 999 mL/hr IV. 1308: Hydralazine HCl 10 mg PO. 1310: Hydralazine HCl 25 mg PO. 1324: Potassium Chloride 40 meq PO. 1354: Ordered Reglan 10 mg IV. 1518: Upon reexamination the patient is resting in bed. I discussed results and treatment plan with the patient. She verbalizes agreement and understanding. The patient is ready for discharge. Medical Decision Differential diagnosis: Etiologies such as metabolic, infection, hypo/hyperglycemia, electrolyte abnormalities, cardiac sources, intracerebral event, toxicologic, neurologic, as well as others were entertained. This is a 66-year-old female who presents the emergency department with a number of complaints. Upon arrival to the emergency department patient is hypertensive and I suspect she is suffering somewhat from hypertensive urgency. This could certainly be causing her symptoms symptoms of nausea. She did not take any of her hypertensive medication today therefore she was given hydralazine in the emergency department. Repeat examination revealed the patient to be sleeping and have no complaints. She was also given a normal saline bolus in the emergency department. I noted that the patient had elevation in her liver enzymes which appeared to be chronic patient reports that she did not get to the bottom of why they were elevated therefore hepatitis panel was drawn and the patient was sent for CAT scan of the abdomen and pelvis. This is noncontributory. Patient does not have an elevation in her white blood cell count has normal renal profile. Based on these findings I feel the patient can be safely discharged home for follow-up with her primary care physician. Patient was in agreement with treatment plan. Medication Reconcilliation Current Medication List: was personally reviewed by me Blood Pressure Screening Patient's blood pressure: Elevated blood pressure Blood pressure disposition: Referred to PCP Impression Primary Impression: Hypertension Additional Impression: Hypokalemia Scribe Attestation The scribe's documentation has been prepared under my direction and personally reviewed by me in its entirety. I confirm that the note above accurately reflects all work, treatment, procedures, and medical decision making performed by me. Departure Information Dispostion Home / Self-Care Prescriptions Metoclopramide (Reglan) 10 Mg Tab 10 MG PO Q6H Y for Nausea, #6 TAB Prov: Jose Henderson MD 07/09/17 Referrals RV. Winters MD (PCP) Forms Call Back Authorization, HOME CARE DOCUMENTATION FORM, IMPORTANT VISIT INFORMATION Patient Instructions My [facility] Additional Instructions Follow up with Dr Jain's office for liver enzyme elevation You have been examined and treated today on an emergency basis only. This is not a substitute for, or an effort to provide, complete comprehensive medical care. It is impossible to recognize and treat all injuries or illnesses in a single emergency department visit. It is therefore important that you follow up closely with Dr Sparks. Call as soon as possible for an appointment. Thank you for your time and consideration. I look forward to speaking with you again soon. Please don't hesitate to call us if you have any questions. Lungs Problem Qualifiers Primary Impression: Hypertension Hypertension type: unspecified Qualified Codes: I10 - Essential (primary) hypertension
[2017-07-09] MEDS ORDERED: CHLO5CAP19 PO (12:51)
[2017-07-09] MEDS ORDERED: HYDR-4716 PO (12:51)
[2017-07-09 13:00] VITALS: O2SAT 98
[2017-07-09 13:05] LABS: BASO % 0.5 %; BASO ABS # 0.02 K/uL (0-0.2); EOS % 0.5 %; EOS ABS # 0.02 K/uL (0-0.5); HEMATOCRIT 35.5 % (37-47); HEMOGLOBIN 12.4 g/dL (12.0-16.0); IG# 0.02 K/uL (0.00-0.02); LYMPH % 22.3 %; LYMPH ABS # 0.92 K/uL (1.2-3.4); MEAN CORPUSCULAR HEMOGLOBIN 30.4 pg (25-34); MEAN CORPUSCULAR HGB CONC 34.9 g/dl (32-36); MEAN PLATELET VOLUME 8.8 fL (7.4-10.4); MONO % 10.9 %; MONO ABS # 0.45 K/uL (0.11-0.59); NEUT % 65.3 %; PLATELET COUNT 320 K/uL (130-400); RED CELL DISTRIBUTION WIDTH CV 13.1 % (11.5-14.5); RED CELL DISTRIBUTION WIDTH SD 42.4 fL (36.4-46.3); WHITE BLOOD COUNT 4.13 K/uL (4.8-10.8)
[2017-07-09] MEDS ORDERED: HydrALAZINE 10 MG TAB PO STA (13:08)
--- NOTE | 2017-07-09 13:15 | DIAGNOSTIC IMAGING REPORT ---
SINGLE VIEW CHEST CLINICAL HISTORY: Atypical chest pain. FINDINGS: An AP, portable, upright chest radiograph is compared to chest x-ray and chest CT dated 02/08/2017. A 2-lead cardiac pacemaker is unchanged in position and partially obscures the left mid chest. The heart is top normal for projection. The pulmonary vasculature is noncongested. The lungs and pleural spaces are clear. No pneumothorax is seen. The bony thorax is grossly intact. IMPRESSION: No acute cardiopulmonary abnormality. Electronically signed by: Johnie Guillermo M.D. 07/09/2017 1:13 PM Dictated Date/Time: 07/09/2017 1:12 PM
[2017-07-09 13:22] LABS: ALBUMIN 3.4 gm/dl (3.4-5.0); ALT/SGPT 143 U/L (12-78); AST/SGOT 99 U/L (15-37); BLOOD UREA NITROGEN 7 mg/dl (7-18); CALCIUM 8.7 mg/dl (8.5-10.1); CARBON DIOXIDE 24 mmol/L (21-32); CREATININE 0.54 mg/dl (0.60-1.20); GLUCOSE 102 mg/dl (70-99); POTASSIUM 3.4 mmol/L (3.5-5.1); SODIUM 129 mmol/L (136-145)
[2017-07-09] MEDS ORDERED: POTASSIUM CHLORIDE 20 MEQ/15 ML UDC PO STA (13:24)
[2017-07-09 13:33] LABS: ALKALINE PHOSPHATASE 890 U/L (45-117); CKMB 0.7 ng/ml (0.5-3.6); TOTAL PROTEIN 6.9 gm/dl (6.4-8.2)
[2017-07-09] MEDS ORDERED: METOCLOPRAMIDE HCL INJ 5 MG/ML 2 ML VIAL IV STA (13:54)
[2017-07-09] MEDS ORDERED: OPTIRAY 320 IV PRN (14:15)
--- NOTE | 2017-07-09 14:45 | DIAGNOSTIC IMAGING REPORT ---
CT SCAN OF THE ABDOMEN AND PELVIS WITH IV CONTRAST CLINICAL HISTORY: Elevated hepatic transaminases. COMPARISON STUDY: Abdominal CT dated 07/30/2016. TECHNIQUE: Following the IV administration of 95 cc of Optiray 320, CT scan of the abdomen and pelvis is performed from the lung bases to the proximal femora. Images are reviewed in the axial, sagittal, and coronal planes. IV contrast was administered without complication. A dose lowering technique was utilized adhering to the principles of ALARA. CT DOSE: 307.26 mGycm FINDINGS: Lung bases: The heart is top normal in size and without pericardial effusion. Pacemaker leads are noted. The lung bases are clear. Liver: The contrast-enhanced liver is normal in size, contour, and attenuation. Fatty infiltration is seen adjacent to falciform ligament. There is no intrahepatic biliary ductal dilatation. The hepatic veins and portal veins are patent. There is mild periportal edema, likely related to hydration status. Gallbladder: Unremarkable. Spleen: Normal in size and attenuation. Pancreas: Unremarkable. Adrenal glands: A 2.0 cm left adrenal adenoma is unchanged. The right adrenal gland is normal in appearance. Kidneys: The contrast enhanced kidneys are normal in size and without hydronephrosis. The kidneys enhance symmetrically. Abdominal vasculature: The abdominal aorta is normal in course and caliber noting mild atherosclerotic calcification. Bowel: There is mild colonic diverticulosis without CT evidence of acute diverticulitis. There is mild diffuse pericolonic infiltration suggest a nonspecific pancolitis. No significant colonic wall thickening is identified. No bowel obstruction is seen. The appendix is not identified and reported surgically absent. Peritoneum: There is no intraperitoneal free air or abdominal ascites. Lymphadenopathy: None. Pelvic viscera: The bladder is normal as visualized. The uterus is surgically absent. No adnexal lesion is seen. A calcified granuloma is seen in the left gluteal soft tissues. Skeletal structures: The skeletal structures are osteopenic. No lytic or blastic lesions are seen. There are bilateral pars defects at L5 with moderate disc space narrowing and grade 1 anterolisthesis at L5-S1. IMPRESSION: 1. Findings suggest a mild nonspecific pancolitis, likely on an infectious or inflammatory basis in this age group. Clinical correlation will be required. 2. No intraperitoneal free air or abdominal ascites is seen. 3. Additional findings as above. Electronically signed by: Johnie Guillermo M.D. 07/09/2017 2:44 PM Dictated Date/Time: 07/09/2017 2:37 PM
[2017-07-09 15:36] VITALS: BP 136/56; PULSE 68; O2SAT 98
[2017-07-09] MEDS ORDERED: METO-157 PO (15:59)
== END 2017-07-09 15:43 | disposition home or self-care (01) ==
LOC: EDBD 12:29 → C.EDB 12:31 → C.EDA 15:43
DX: I10 Essential (primary) hypertension (principal); E87.6 Hypokalemia; R74.8 Abnormal levels of other serum enzymes; F32.9 Major depressive disorder, single episode, unspecified; Z95.1 Presence of aortocoronary bypass graft; J45.909 Unspecified asthma, uncomplicated; I25.10 Atherosclerotic heart disease of native coronary artery without angina pectoris; Z95.0 Presence of cardiac pacemaker; Z91.011 Allergy to milk products; Z88.1 Allergy status to other antibiotic agents; Z88.8 Allergy status to other drugs, medicaments and biological substances; Z88.0 Allergy status to penicillin; Z91.018 Allergy to other foods; Z82.49 Family history of ischemic heart disease and other diseases of the circulatory system; Z84.1 Family history of disorders of kidney and ureter

== ENCOUNTER 2017-07-11 18:01 | Emergency (ER) | payer OTHER ==
[~2017-07-11] VITALS: Ht 152.4 cm; Wt 48.2 kg
[~2017-07-11 18:01] MED LIST changes: -ANT25 PO; -ATV2 PO; +CHLO5CAP19 PO; +HYDR-4716 PO; -LBR25 PO; +METO-157 PO
[2017-07-11 18:14] VITALS: TEMP 36.8; Ht 152.4 cm; Wt 48.2 kg
[2017-07-11 19:54] LABS: BASO % 0.4 %; BASO ABS # 0.03 K/uL (0-0.2); EOS % 0.7 %; EOS ABS # 0.05 K/uL (0-0.5); HEMATOCRIT 38.8 % (37-47); HEMOGLOBIN 13.3 g/dL (12.0-16.0); IG# 0.02 K/uL (0.00-0.02); LYMPH % 16.9 %; LYMPH ABS # 1.27 K/uL (1.2-3.4); MEAN CELL VOLUME 88.4 fL (80-100); MEAN CORPUSCULAR HEMOGLOBIN 30.3 pg (25-34); MEAN CORPUSCULAR HGB CONC 34.3 g/dl (32-36); MEAN PLATELET VOLUME 8.6 fL (7.4-10.4); MONO % 10.1 %; MONO ABS # 0.76 K/uL (0.11-0.59); NEUT % 71.6 %; NEUT ABS # 5.38 K/uL (1.4-6.5); PLATELET COUNT 324 K/uL (130-400); RED CELL DISTRIBUTION WIDTH CV 13.5 % (11.5-14.5); RED CELL DISTRIBUTION WIDTH SD 43.9 fL (36.4-46.3); WHITE BLOOD COUNT 7.51 K/uL (4.8-10.8)
--- NOTE | 2017-07-11 20:10 | DIAGNOSTIC IMAGING REPORT ---
HEAD WITHOUT CONTRAST (CT) CLINICAL HISTORY: 66 years-old Female with R eye blurriness, R ear pain. Acute vision changes. TECHNIQUE: Multiple axial CT images of the head were obtained without contrast. A dose lowering technique was utilized adhering to the principles of ALARA. CT DOSE: 537.48 mGy.cm COMPARISON: CT head 10/15/2016. FINDINGS: No acute intracranial hemorrhage, midline shift, intracranial mass, hydrocephalus, territorial ischemia or abnormal extra-axial collection. Mild cerebral and cerebellar atrophy. Ill-defined areas of low-attenuation within the periventricular white matter and right anterior limb internal capsule are unchanged suggesting chronic microvascular ischemic changes. The calvarium is intact. The paranasal sinuses, mastoid air cells, and middle ear cavities are clear. IMPRESSION: No acute intracranial abnormality. The above report was generated using voice recognition software. It may contain grammatical, syntax or spelling errors. Electronically signed by: Rob Torrez M.D. 07/11/2017 8:09 PM Dictated Date/Time: 07/11/2017 8:06 PM
[2017-07-11 20:17] LABS: ALBUMIN 3.9 gm/dl (3.4-5.0); CALCIUM 9.4 mg/dl (8.5-10.1); CREATININE 0.7 mg/dl (0.60-1.20); POTASSIUM 3.7 mmol/L (3.5-5.1)
[2017-07-11 20:20] LABS: TOTAL PROTEIN 7.4 gm/dl (6.4-8.2)
--- NOTE | 2017-07-11 20:38 | EMERGENCY ROOM VISIT NOTE ---
ED Visit Note First contact with patient: 18:24 I have personally seen and evaluated the patient with the physician staff assistant. I agree with the diagnostic/management decisions and have personally been involved in these decisions and agree with the diagnosis.
--- NOTE | 2017-07-11 21:11 | EMERGENCY ROOM VISIT NOTE ---
History First contact with patient: 18:24 Chief Complaint: EAR PAIN Stated Complaint: PAIN IN RIGHT EAR,VISION GETTING BLURRY History of Present Illness The patient is a 66 year old female who presents to the Emergency Room via private vehicle with complaints of "pain in right ear, vision getting blurry". The patient states that yesterday morning she felt as though she did have her ears flushed. She started she started to have aching in the right ear. She was unable to see her primary care doctor. She was directed to the urgent care however upon her driving there she notes that she developed a pain in the right eye and a little blurred vision. She also notes a minimal sore throat, and a lump behind her right ear. She states that she is currently undergoing right eye physical therapy secondary to a concussion she sustained in the past. She notes that the blurred vision is very minimal in the right eye. She rates the pain in the right ear currently as a 7/10. Review of Systems A complete 10-point Review of Systems was discussed with the patient, with pertinent positives and negatives listed in the History of Present Illness. All remaining Review of Systems questions can be considered negative unless otherwise specified. Past Medical/Surgical History Medical Problems: (1) Abdominal hysterectomy (2) ANXIETY STATE NOS (3) AORTOCORONARY BYPASS (4) ASTHMA, UNSPECIFIED (5) Chest pressure (6) Coronary artery disease (7) DEPRESS DISORDER-UNSPEC (8) HYPERTENSION NOS (9) Implantation of cardiac pacemaker (10) Syncope and collapse (11) Tonsillectomy Family History Cancer FH: CAD (coronary artery disease) FHx: kidney disease Social History Smoking Status: Former Smoker Alcohol Use: occasionally Drug Use: none Marital Status: single Housing Status: lives alone Occupation Status: unemployed Current/Historical Medications Scheduled Bupropion HCl (Bupropion HCl Xl), 150 MG PO QAM Chlordiazepoxide (Librium), 5 MG PO TID Hydralazine Hcl (Apresoline), 25 MG PO TID Lamotrigine (Lamictal), 400 MG PO DAILY Riboflavin (B-2), 1 TAB PO DAILY Scheduled PRN Hydralazine HCl (Hydralazine HCl), 5-10 MG PO Q6H PRN for Hypertension Hydralazine HCl (Hydralazine HCl), 25 MG PO TID PRN for HYPERTENSION Metoclopramide (Reglan), 10 MG PO Q6H PRN for Nausea Ondansetron (Ondansetron HCl), 4-8 MG PO Q6H PRN for Nausea or Vomiting Physical Exam Vital Signs Date Time Temp Pulse Resp B/P (MAP) Pulse Ox O2 Delivery O2 Flow Rate FiO2 07/11/17 21:20 80 18 143/87 98 07/11/17 18:14 36.8 83 20 173/87 95 Room Air Right Eye Acuity: 20/40 Left Eye Acuity: 20/30 Physical Exam VITAL SIGNS - Vital signs and nursing notes were reviewed. Stable. GENERAL -66-year-old female appearing her stated age who is in no acute distress. Communicates well with provider and answers questions appropriately. SKIN - Without rashes. No petechial or meningeal rash. HEAD - NC/AT. EYES - PERRL with EOMI bilaterally. Sclera anicteric. EARS - No deformities of external structures noted on gross examination bilaterally. No pain elicited with palpation of the tragus bilaterally. External auditory canals without discharge or otorrhea. There is a moderate amount of cerumen in the canals bilaterally. Within the right ear, the little bit of the tympanic membrane visible appears unremarkable. NOSE - Midline and without cyanosis. No epistaxis or purulent drainage noted. MOUTH/OROPHARYNX - Without perioral cyanosis. Buccal mucosa pink and moist and without leukoplakia. Tongue midline with equal elevation of palate bilaterally. No tonsillar hypertrophy, erythema, or exudates noted. Fair dentition noted. NECK - Neck with FROM. Supple to palpation. Minimal anterior cervical and posterior cervical lymphadenopathy noted. No nuchal rigidity. LUNGS - Chest wall symmetric without accessory muscle use, intercostals retractions, or central cyanosis. Normal vesicular breath sounds CTA B/L. No wheezes, rales, or rhonchi appreciated. CARDIAC - RRR with S1/S2. No murmur, rubs, or gallops appreciated. EXTREMITIES - +5/5 strength noted in UE/LE bilaterally. NEUROLOGIC - Cranial nerves II through XII grossly intact. Sensory intact to light touch throughout. PSYCH - A&O, and cooperates fully with examiner. Pt is very pleasant and interacts well with examiner. Medical Decision & Procedures ER Provider Diagnostic Interpretation: HEAD WITHOUT CONTRAST (CT) CLINICAL HISTORY: 66 years-old Female with R eye blurriness, R ear pain. Acute vision changes. TECHNIQUE: Multiple axial CT images of the head were obtained without contrast. A dose lowering technique was utilized adhering to the principles of ALARA. CT DOSE: 537.48 mGy.cm COMPARISON: CT head 10/15/2016. FINDINGS: No acute intracranial hemorrhage, midline shift, intracranial mass, hydrocephalus, territorial ischemia or abnormal extra-axial collection. Mild cerebral and cerebellar atrophy. Ill-defined areas of low-attenuation within the periventricular white matter and right anterior limb internal capsule are unchanged suggesting chronic microvascular ischemic changes. The calvarium is intact. The paranasal sinuses, mastoid air cells, and middle ear cavities are clear. IMPRESSION: No acute intracranial abnormality. The above report was generated using voice recognition software. It may contain grammatical, syntax or spelling errors. Electronically signed by: Rob Torrez M.D. 07/11/2017 8:09 PM Dictated Date/Time: 07/11/2017 8:06 PM Laboratory Results 07/11/17 19:30 Red Blood Count 4.39, Mean Corpuscular Volume 88.4, Mean Corpuscular Hemoglobin 30.3, Mean Corpuscular Hemoglobin Concent 34.3, Mean Platelet Volume 8.6, Neutrophils (%) (Auto) 71.6, Lymphocytes (%) (Auto) 16.9, Monocytes (%) (Auto) 10.1, Eosinophils (%) (Auto) 0.7, Basophils (%) (Auto) 0.4, Neutrophils # (Auto ) 5.38, Lymphocytes # (Auto) 1.27, Monocytes # (Auto) 0.76, Eosinophils # (Auto ) 0.05, Basophils # (Auto) 0.03 07/11/17 19:30 Test 07/11/17 19:30 White Blood Count 7.51 K/uL (4.8-10.8) Red Blood Count 4.39 M/uL (4.2-5.4) Hemoglobin 13.3 g/dL (12.0-16.0) Hematocrit 38.8 % (37-47) Mean Corpuscular Volume 88.4 fL (80-100) Mean Corpuscular Hemoglobin 30.3 pg (25-34) Mean Corpuscular Hemoglobin Concent 34.3 g/dl (32-36) Platelet Count 324 K/uL (130-400) Mean Platelet Volume 8.6 fL (7.4-10.4) Neutrophils (%) (Auto) 71.6 % Lymphocytes (%) (Auto) 16.9 % Monocytes (%) (Auto) 10.1 % Eosinophils (%) (Auto) 0.7 % Basophils (%) (Auto) 0.4 % Neutrophils # (Auto) 5.38 K/uL (1.4-6.5) Lymphocytes # (Auto) 1.27 K/uL (1.2-3.4) Monocytes # (Auto) 0.76 K/uL (0.11-0.59) Eosinophils # (Auto) 0.05 K/uL (0-0.5) Basophils # (Auto) 0.03 K/uL (0-0.2) RDW Standard Deviation 43.9 fL (36.4-46.3) RDW Coefficient of Variation 13.5 % (11.5-14.5) Immature Granulocyte % (Auto) 0.3 % Immature Granulocyte # (Auto) 0.02 K/uL (0.00-0.02) Anion Gap 5.0 mmol/L (3-11) Est Creatinine Clear Calc Drug Dose 57.6 ml/min Estimated GFR () 105.4 Estimated GFR (Non- 90.9 BUN/Creatinine Ratio 9.2 (10-20) Calcium Level 9.4 mg/dl (8.5-10.1) Total Bilirubin 0.8 mg/dl (0.2-1) Aspartate Amino Transf (AST/SGOT) 65 U/L (15-37) Alanine Aminotransferase (ALT/SGPT) 114 U/L (12-78) Alkaline Phosphatase 847 U/L (45-117) Total Protein 7.4 gm/dl (6.4-8.2) Albumin 3.9 gm/dl (3.4-5.0) Globulin 3.5 gm/dl (2.5-4.0) Albumin/Globulin Ratio 1.1 (0.9-2) Medical Decision Patient was seen and evaluated as above. She presents to us today with right ear pain, a sore throat, minimal right eye pain, headache, and minimal blurred vision of the right eye. After obtaining a thorough history and physical examination the above work up was performed. No evidence of CVA on exam. She converses well. Decision was made to obtain a CT scan of the patient's head secondary to her complaint within the right eye as well as the ear. This was felt necessary because of the patient's presentation. In addition, blood work was also obtained. CBC reveals no concerning leukocytosis or anemia. His liver function is slightly improved compared to previous. The patient does have a near normal visual acuity, with only slight difference on the right. Her pressures are also appropriate with an average of the right eye being 16.5, and left eye being 18. Throughout her stay a blurriness in the right eye dissipated. Her right eye does not display any abnormalities. Funduscopic exam is normal. It was felt the patient is likely experiencing pain in the right ear secondary to hard cerumen. She is to use Debrox drops and have these irrigated. I did offer to have them irrigated here however she prefers to allow the wax to soften and then have them irrigated with the family doctor. I do believe this is reasonable. Although the right eye blurred vision at this time has subsided, I suspect that it could be related to the reason she is undergoing right eye physical therapy from the previous concussion. I believe that with the above workup, physical exam and presentation that CVA is less likely. It is also important to note that during the patient's stay when I went to reassess her she indicated that she did take 1 of her Zofran tablets. I did ask her if she had a prescription bottle so I can verify she notes that it was her last tablet and she did not have the bottle. She does reassure me though however she took 4 mg of Zofran orally. She states this was secondary to nausea/a queasy sensation in the abdomen. There is no abdominal pain. There is no chest pain or shortness of breath. She was felt stable for outpatient management to follow with the family doctor or return with worsening. The patient was educated upon management, had questions answered prior to discharge, and was discharged home in good condition. She has a follow up early next week with PCP. Case was discussed with the attending physician Medication list reviewed and BP elevated likely secondary to situation. In the evaluation and treatment of this patient, the following differential diagnoses were considered: Concussion, Contrecoup Injury, Brain Tumor, Depression, Encephalitis, Hypothyroidism, Meningitis, CVA, TIA, Migraine, Cluster Headache, Intracranial Abnormality, Intracranial Hemorrhage, Subdural Hematoma, Subarachnoid Hemorrhage, Hydrocephalus. Impression Primary Impression: Right ear pain Additional Impression: Blurred vision, right eye Departure Information Dispostion Home / Self-Care Condition GOOD Referrals RV. Winters MD (PCP) Patient Instructions My [facility] Additional Instructions You were seen in the emergency department for right ear pain. I recommend debrox ear drops for R ear wax to soften. Please follow up with family doctor for further evaluation. Please rest and stay well hydrated. Please follow up with your guest specialist for the eye symptoms. Please return with any new /concerning symptoms Problem Qualifiers
[2017-07-11 21:20] VITALS: BP 143/87; PULSE 80; O2SAT 98
== END 2017-07-11 21:21 | disposition home or self-care (01) ==
LOC: C.EDB 18:03 → C.EDD 21:21
DX: H92.01 Otalgia, right ear (principal); H53.8 Other visual disturbances; Z90.710 Acquired absence of both cervix and uterus; F41.9 Anxiety disorder, unspecified; Z95.1 Presence of aortocoronary bypass graft; J45.909 Unspecified asthma, uncomplicated; I25.10 Atherosclerotic heart disease of native coronary artery without angina pectoris; F32.9 Major depressive disorder, single episode, unspecified; I10 Essential (primary) hypertension; Z95.0 Presence of cardiac pacemaker; Z87.891 Personal history of nicotine dependence; Z82.49 Family history of ischemic heart disease and other diseases of the circulatory system; Z84.1 Family history of disorders of kidney and ureter; Z79.899 Other long term (current) drug therapy

== ENCOUNTER → 2017-07-17 | Outpatient (CLI) | payer OTHER ==
[2017-07-17 13:52] LABS: ALBUMIN 3.7 gm/dl (3.4-5.0); ALT/SGPT 149 U/L (12-78); BLOOD UREA NITROGEN 12 mg/dl (7-18); CALCIUM 9.1 mg/dl (8.5-10.1); CARBON DIOXIDE 27 mmol/L (21-32); CREATININE 0.58 mg/dl (0.60-1.20); GLUCOSE 93 mg/dl (70-99); POTASSIUM 3.7 mmol/L (3.5-5.1); SODIUM 133 mmol/L (136-145)
[2017-07-17 13:56] LABS: ALKALINE PHOSPHATASE 850 U/L (45-117); AST/SGOT 117 U/L (15-37); TOTAL PROTEIN 7.2 gm/dl (6.4-8.2)
== END | disposition home or self-care (01) ==
LOC: C.LAB1850 12:14
PROVIDERS: ATTEND Internal Medicine
DX: R74.8 Abnormal levels of other serum enzymes (principal); R63.4 Abnormal weight loss

== ENCOUNTER → 2017-07-19 | Outpatient (CLI) | payer OTHER ==
[~2017-07-19] MED LIST changes: +CTP/1 PO; +CYM20 PO; +ativan PO
--- NOTE | 2017-07-19 08:49 | DIAGNOSTIC IMAGING REPORT ---
ULTRASOUND RIGHT UPPER QUADRANT ABDOMEN CLINICAL HISTORY: Elevated hepatic transaminases. COMPARISON STUDY: Abdominal CT dated 07/09/2017. TECHNIQUE: Real-time, grayscale, and color flow sonography of the right upper quadrant of the abdomen was performed. Images are reviewed in the transverse and longitudinal planes. FINDINGS: Liver: The liver is normal in size and echotexture. There is no intrahepatic biliary ductal dilatation. The main portal vein is patent. Gallbladder: The gallbladder is normal in appearance. No gallstones are identified. There is no gallbladder wall thickening or pericholecystic fluid. A sonographic Delaney's sign is reportedly absent. The common bile duct measures up to 0.3 cm in diameter. Pancreas: Visualized portions of the pancreatic head and body are normal in appearance. Right kidney: Survey images of the right kidney demonstrate normal size and echotexture. There is no hydronephrosis. Ascites: None. IMPRESSION: Unremarkable sonographic assessment of the right upper quadrant. No gallstones are identified. Electronically signed by: Johnie Guillermo M.D. 07/19/2017 8:47 AM Dictated Date/Time: 07/19/2017 8:46 AM
== END | disposition home or self-care (01) ==
LOC: C.ULTR 07:39
PROVIDERS: ATTEND Internal Medicine
DX: R63.4 Abnormal weight loss (principal); R74.8 Abnormal levels of other serum enzymes

== ENCOUNTER 2017-07-23 10:34 | Inpatient (IN) | payer OTHER ==
[~2017-07-23] VITALS: Ht 152.4 cm; Wt 47.0 kg
[~2017-07-23 10:34] MED LIST changes: -CTP/1 PO; -CYM20 PO; -ativan PO
[2017-07-23 11:13] LABS: HEMATOCRIT 38.8 % (37-47); HEMOGLOBIN 13.2 g/dL (12.0-16.0); MEAN CORPUSCULAR HEMOGLOBIN 30.3 pg (25-34); MEAN PLATELET VOLUME 8.9 fL (7.4-10.4); PLATELET COUNT 315 K/uL (130-400); WHITE BLOOD COUNT 4.33 K/uL (4.8-10.8)
[2017-07-23 11:21] LABS: PTT PATIENT 25.4 SECONDS (21.0-31.0)
--- NOTE | 2017-07-23 11:26 | DIAGNOSTIC IMAGING REPORT ---
CHEST ONE VIEW PORTABLE CLINICAL HISTORY: 66 years-old Female presenting with Chest pain. TECHNIQUE: Portable upright AP view of the chest was obtained. COMPARISON: 07/09/2017. FINDINGS: Left subclavian pacer with leads to the right atrium and right ventricular apex. Atherosclerosis of aortic arch. Cardiac silhouette normal in size. Lungs and pleural spaces clear. Osseous structures normal. Upper abdomen normal. IMPRESSION: 1. No acute cardiopulmonary disease. Electronically signed by: Asim Alvarado M.D. 07/23/2017 11:24 AM Dictated Date/Time: 07/23/2017 11:23 AM
--- NOTE | 2017-07-23 11:29 | EMERGENCY ROOM VISIT NOTE ---
History Report prepared by Moe: Eli Maciel Under the Supervision of: Dr. Angel Smith M.D. First contact with patient: 11:12 Chief Complaint: CHEST PAIN Stated Complaint: CHEST PAIN Nursing Triage Summary: pt reports started saturday feeling shakey with intermittent chest pressure. when I bend over it feels like my pacemaker moved. but I started feelingmore panicky since that time and it feels like my pacer is not working correctly and pain is in my L shoulder and into hand History of Present Illness The patient is a 66 year old female who presents to the Emergency Room with complaints of intermittent episodes of feelings of weakness and shakiness beginning a couple days ago. The patient states she recently lost "a lot" weight. The patient states she recently found out she has chronically elevated liver enzymes. She states she has been following up with her PCP for her elevated liver enzymes. She states since loosing weight her pacemaker has gotten "looser". The patient reports she bent over on Saturday and she felt her pacemaker "slip". She states she was short of breath when the episode took place. The patient notes shakiness, feeling "panicky", and feeling lightheaded. She states "I feel like I am out of water". She notes pain and numbness in her arm. The patient reports taking B2. Source of History: patient Onset: a couple days ago Position: other (generalized) Quality: other (shakiness) Timing: intermittent Associated Symptoms: + SOB, + numbness Review of Systems See HPI for pertinent positives & negatives. A total of 10 systems reviewed and were otherwise negative. Past Medical & Surgical Medical Problems: (1) Abdominal hysterectomy (2) ANXIETY STATE NOS (3) AORTOCORONARY BYPASS (4) ASTHMA, UNSPECIFIED (5) Chest pressure (6) Coronary artery disease (7) DEPRESS DISORDER-UNSPEC (8) HYPERTENSION NOS (9) Implantation of cardiac pacemaker (10) Syncope and collapse (11) Tonsillectomy Family History Cancer FH: CAD (coronary artery disease) FHx: kidney disease Social History Smoking Status: Never Smoker Alcohol Use: occasionally Drug Use: none Marital Status: single Housing Status: lives alone Occupation Status: unemployed Current/Historical Medications Scheduled Bupropion HCl (Bupropion HCl Xl), 150 MG PO QAM Chlordiazepoxide (Librium), 5 MG PO BID Hydralazine Hcl (Apresoline), 25 MG PO TID Lamotrigine (Lamictal), 400 MG PO DAILY Riboflavin (B-2), 1 TAB PO DAILY Scheduled PRN Hydralazine HCl (Hydralazine HCl), 5-10 MG PO Q6H PRN for Hypertension Hydralazine HCl (Hydralazine HCl), 25 MG PO TID PRN for HYPERTENSION Metoclopramide (Reglan), 10 MG PO Q6H PRN for Nausea Ondansetron (Ondansetron HCl), 4-8 MG PO Q6H PRN for Nausea or Vomiting Allergies Coded Allergies: Lactose (Verified Allergy, Intermediate, GI UPSET, DIARRHEA, INTESTINAL PAIN, 07/11/17) Metronidazole (Verified Allergy, Unknown, ., 07/11/17) Moxifloxacin (Verified Allergy, Unknown, unnknown, 07/11/17) Nitroglycerin (Verified Allergy, Unknown, SEVERE HYPOTENSION, 07/11/17) Penicillins (Verified Allergy, Unknown, 07/11/17) Promethazine (Verified Allergy, Unknown, hallucinations, 07/11/17) Soy Allergy (Verified Allergy, Unknown, ANAPHYLAXIS, 07/11/17) Physical Exam Vital Signs Date Time Temp Pulse Resp B/P (MAP) Pulse Ox O2 Delivery O2 Flow Rate FiO2 07/23/17 14:27 79 16 165/80 99 Room Air 07/23/17 14:17 67 16 188/97 97 Room Air 07/23/17 14:13 66 16 178/89 97 Room Air 07/23/17 14:03 69 16 182/93 97 Room Air 07/23/17 13:30 68 18 195/84 99 Room Air 07/23/17 13:10 72 07/23/17 12:52 63 18 174/89 98 Room Air 07/23/17 12:15 61 18 183/87 97 Room Air 07/23/17 11:54 96 Room Air 07/23/17 11:44 63 18 183/94 96 Room Air 07/23/17 11:32 99 Room Air 07/23/17 10:59 69 07/23/17 10:38 36.5 87 18 186/100 99 Room Air Physical Exam GENERAL: Patient is anxious appearing and in minimal distress. EYES: No scleral icterus, unremarkable pupils. ENT: Mucous membranes moist, no nasal congestion. NECK: No masses appreciated, no meningismus, trachea is midline. RESPIRATORY: No dyspnea. Clear to auscultation and equal bilaterally. No wheeze , no rhonchi. CARDIOVASCULAR: Regular rate and rhythm. No murmurs, rubs, gallops appreciated. GASTROINTESTINAL: Abdomen soft, nontender, no peritonitis. Bowel sounds positive. No masses appreciated. BACK: No midline tenderness, no CVA tenderness EXTREMITIES: Normal motion all extremities, no cyanosis, no edema. NEUROLOGIC: Alert and oriented, no acute motor or sensory deficits, no focal weakness, cranial nerves grossly intact. SKIN: No rash, no jaundice, no diaphoresis. Medical Decision & Procedures ER Provider Diagnostic Interpretation: Radiology results and stated below per my review and radiologist interpretation: CHEST ONE VIEW PORTABLE FINDINGS: Left subclavian pacer with leads to the right atrium and right ventricular apex. Atherosclerosis of aortic arch. Cardiac silhouette normal in size. Lungs and pleural spaces clear. Osseous structures normal. Upper abdomen normal. IMPRESSION: 1. No acute cardiopulmonary disease. Electronically signed by: Asim Alvarado M.D. Laboratory Results 07/23/17 10:56 07/23/17 10:56 Test 07/23/17 10:56 07/23/17 11:09 07/23/17 15:25 Red Blood Count 4.36 M/uL (4.2-5.4) Mean Corpuscular Volume 89.0 fL (80-100) Mean Corpuscular Hemoglobin 30.3 pg (25-34) Mean Corpuscular Hemoglobin Concent 34.0 g/dl (32-36) RDW Standard Deviation 46.0 fL (36.4-46.3) RDW Coefficient of Variation 14.0 % (11.5-14.5) Mean Platelet Volume 8.9 fL (7.4-10.4) Prothrombin Time 10.0 SECONDS (9.0-12.0) Prothromb Time International Ratio 1.0 (0.9-1.1) Activated Partial Thromboplast Time 25.4 SECONDS (21.0-31.0) Partial Thromboplastin Ratio 1.0 Anion Gap 8.0 mmol/L (3-11) Est Creatinine Clear Calc Drug Dose 63.9 ml/min Estimated GFR () 110.9 Estimated GFR (Non- 95.7 BUN/Creatinine Ratio 17.2 (10-20) Calcium Level 9.0 mg/dl (8.5-10.1) Phosphorus Level 2.8 mg/dl (2.5-4.9) Magnesium Level 2.1 mg/dl (1.8-2.4) Total Bilirubin 0.7 mg/dl (0.2-1) Aspartate Amino Transf (AST/SGOT) 104 U/L (15-37) Alanine Aminotransferase (ALT/SGPT) 156 U/L (12-78) Alkaline Phosphatase 779 U/L (45-117) Total Creatine Kinase 77 U/L (26-192) Creatine Kinase MB 1.2 ng/ml (0.5-3.6) Creatine Kinase MB Ratio 1.6 (0-3.0) Total Protein 7.0 gm/dl (6.4-8.2) Albumin 3.7 gm/dl (3.4-5.0) Globulin 3.3 gm/dl (2.5-4.0) Albumin/Globulin Ratio 1.1 (0.9-2) Bedside Troponin I < 0.030 ng/ml (0-0.045) Laboratory results as reviewed by me. Medications Administered Medications (Trade) Dose Ordered Sig/Trip Route Start Time Stop Time Status Last Admin Dose Admin Multivitamins 10 ml/Thiamine HCl 100 mg/Folic Acid 1 mg/Sodium Chloride 1,011.2 ml @ 500 mls/ hr Q2H2M ONCE IV 07/23/17 11:30 07/23/17 13:31 DC 07/23/17 11:54 500 MLS/HR Hydralazine HCl (HydrALAZINE INJ) 10 mg NOW STAT IV. 07/23/17 14:07 07/23/17 14:08 DC 07/23/17 14:14 10 MG Lorazepam (Ativan Inj) 0.5 mg NOW STAT IV 07/23/17 15:18 07/23/17 15:19 DC 07/23/17 15:28 0.5 MG ECG Per My Interpretation Indication: weakness Rate (beats per minute): 85 Rhythm: normal sinus Findings: no acute ischemic change, no ectopy, other (QTC 411, enlarged p-wave) ED Course 1117: The patient was evaluated in room C3. A complete history and physical exam was performed. 1315: Extensive bedside discussion with the patient. She reports she does not feel better and does not feel comfortable going home. She referenced her syncopal episode in February and how she is considering suing the ED doctor for "almost killing" her. She is requesting a hospitalist come in and evaluate her. She did not take her hydralazine this morning. 1400: Discussed the patient's case with Dr. Jaimes and Dr. Coyle. They will evaluate the patient. 1500: Reevaluated the patient. Discussed results and discharge instructions: She verbalized understanding and agreement. The patient is ready for discharge. Medical Decision Differential: Sepsis, Infectious (UTI/Pneumonia/Meningitis/etc), Metabolic/ Electrolyte Abnormality, Cardiac, Dehydration, Anemia, Hepatic, Endocrine, Toxicologic, Neurologic, amongst other pathologies entertained. 66 yr old female with vague complaints for which she has sort of been seen for the last 2 weeks. Notes week, dizzy along with feeling like she is out of her body as well as tingling throughout, worse in left arm. Notes multiple pre- syncopal events which have been worsening as well. She has no neuro deficits and exam is benign. She is anxious but seems interested in further work-up testing. Already with long history of elevated LFTs of uncertain etiology. Previous work-ups and even brought in to hospital with similar episodes. She does note that she has been considering suing ER doc for discharging her in February when she had syncopal event. Chart was extensively reviewed and it is unclear what exactly is going on. It does seem clear that much of this is psychiatric in nature, especially given gradually changing psych meds recently. Labs, CXR, EKG unremarkable. Pacer working nominally. I do not feel the CT from just a few days ago needs to be repeated. Initially I planned on discharge but patient with escalating symptoms and I do not feel she will do well as outpatient, regardless of findings in work-up. Did opt to give some IV ativan to help calm her down. Multiple discussions throughout with hospitalist to keep them updated. Medication Reconcilliation Current Medication List: was personally reviewed by me Blood Pressure Screening Patient's blood pressure: Elevated blood pressure Blood pressure disposition: Referred to PCP (referred to hospitalist) Consults Time Called: 1317 Consulting Physician: Dr. Jaimes Returned Call: 1400 Discussed the patient's case with Dr. Jaimes [facility] [place] The patient will be evaluated for further treatment and disposition. Impression Primary Impression: Pre-syncope Additional Impressions: Generalized weakness Elevated liver enzymes Hypertension Scribe Attestation The scribe's documentation has been prepared under my direction and personally reviewed by me in its entirety. I confirm that the note above accurately reflects all work, treatment, procedures, and medical decision making performed by me. Departure Information Dispostion Home / Self-Care Referrals RV. Winters MD (PCP) Patient Instructions My [facility] Problem Qualifiers
[2017-07-23 11:30] LABS: ALBUMIN 3.7 gm/dl (3.4-5.0); CREATININE 0.6 mg/dl (0.60-1.20); POTASSIUM 3.5 mmol/L (3.5-5.1)
[2017-07-23] MEDS ORDERED: MULTI-VITAMIN INFUSION INJ 10 ML, THIAMINE HCL INJ 100 MG, FoLIC ACID INJ 1 MG in SODIU... IV ONE (11:30)
[2017-07-23 11:34] LABS: CKMB 1.2 ng/ml (0.5-3.6)
[2017-07-23 11:42] LABS: PHOSPHORUS 2.8 mg/dl (2.5-4.9)
[2017-07-23] MEDS ORDERED: HydrALAZINE HCL 20 MG/ML VIAL IV. STA (14:07)
[2017-07-23] MEDS ORDERED: LORAZEPAM 2 MG/ML 1 ML VIAL IV STA (15:18)
[2017-07-23] MEDS ORDERED: LORAZEPAM 2 MG/ML 1 ML VIAL IV PRN ×2 (16:15)
[2017-07-23] MEDS ORDERED: ACETAMINOPHEN 325 MG TAB PO PRN (16:15)
[2017-07-23] MEDS ORDERED: ALUMINUM/MAGNESIUM/SIMETH (MAALOX MAX) 30 ML UDC PO PRN (16:15)
[2017-07-23] MEDS ORDERED: MAGNESIUM HYDROXIDE SUSP 30 ML UDC PO PRN (16:15)
--- NOTE | 2017-07-23 16:38 | History and Physical ---
History & Physical Date & Time of Service: Jul 23, 2017 at 16:27 Chief Complaint: Chest Pain Primary Care Physician: RV. Winters MD History of Present Illness 66-year-old female here with weight loss presyncope and significant anxiety. 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 She does not go into these in detail but says the amount of stress is "unbelievable". Along with that her outpatient psychiatrist has been attempting to taper her off of Librium and Wellbutrin and she herself has not been taking her Lamictal on a regular basis. She has had significant nausea and anorexia believes she has had at least a 10 pound weight loss since May and has been existing on Ensure 3 times a day and Gatorade. She exhibits psychomotor agitation during exam being fidgety she is with injected sclera she is emotionally labile she has pressured speech and at times shifts gears from idea to another rapidly. During my counseling of her she obviously is not waiting to hear what I am saying but moving to her next idea or concern. She is intensely focused on the fact that the outpatient physician's triage assistant Told her weight loss might be from cancer and this is been a large concern for her especially since she has had issues with elevated liver function test for some time. She is agreeable to observation hydration and inpatient psychiatric counseling to help modulate her medications and perhaps even change outpatient psychiatrist although she is comfortable with her psychologist working Past Medical/Surgical History Medical Problems: (3) Abdominal hysterectomy (5) Acute chest pain (6) Altered mental status (7) ANXIETY STATE NOS (9) ASTHMA, UNSPECIFIED (15) Closed head injury (16) Colitis (23) Coronary artery disease (24) DEPRESS DISORDER-UNSPEC (25) Dizziness (26) GI bleed (30) HYPERTENSION NOS (32) Hypokalemia (36) Implantation of cardiac pacemaker (43) Tonsillectomy (44) Vertigo (45) Weight loss Family History Cancer FH: CAD (coronary artery disease) FHx: kidney disease Social History Smoking Status: Never Smoker Drug Use: none Marital Status: single Housing status: lives alone Occupational Status: unemployed Immunizations History of Influenza Vaccine: No History of Tetanus Vaccine?: No History of Pneumococcal: No History of Hepatitis B Vaccine: No Allergies Coded Allergies: Lactose (Verified Allergy, Intermediate, GI UPSET, DIARRHEA, INTESTINAL PAIN, 07/11/17) Metronidazole (Verified Allergy, Unknown, ., 07/11/17) Moxifloxacin (Verified Allergy, Unknown, unnknown, 07/11/17) Nitroglycerin (Verified Allergy, Unknown, SEVERE HYPOTENSION, 07/11/17) Penicillins (Verified Allergy, Unknown, 07/11/17) Promethazine (Verified Allergy, Unknown, hallucinations, 07/11/17) Soy Allergy (Verified Allergy, Unknown, ANAPHYLAXIS, 07/11/17) Home Medications Scheduled Bupropion HCl (Bupropion HCl Xl), 150 MG PO QAM Chlordiazepoxide (Librium), 5 MG PO BID Hydralazine Hcl (Apresoline), 25 MG PO TID Lamotrigine (Lamictal), 400 MG PO DAILY Riboflavin (B-2), 1 TAB PO DAILY Scheduled PRN Hydralazine HCl (Hydralazine HCl), 5-10 MG PO Q6H PRN for Hypertension Hydralazine HCl (Hydralazine HCl), 25 MG PO TID PRN for HYPERTENSION Metoclopramide (Reglan), 10 MG PO Q6H PRN for Nausea Ondansetron (Ondansetron HCl), 4-8 MG PO Q6H PRN for Nausea or Vomiting Review of Systems ROS: She is thin but not cachectic, she is obviously stressed and anxious No double vision blurry vision but at times feels disassociated No problems with speech or swallowing No palpitations, chest pain or pressure No Wheezing or breathing issues No abdominal pain has had persistent nausea without vomiting or diarrhea but has had weight loss No burning urine urine frequency or changes in color No focal joint pain or muscle pain No skin rashes or oral lesions No unusual bruising or bleeding No focused back pain or numbness or loss of strength No changes in memory or confusion Physical Exam Vital Signs Date Time Temp Pulse Resp B/P (MAP) Pulse Ox O2 Delivery O2 Flow Rate FiO2 07/23/17 14:27 79 16 165/80 99 Room Air 07/23/17 14:17 67 16 188/97 97 Room Air 07/23/17 14:13 66 16 178/89 97 Room Air 07/23/17 14:03 69 16 182/93 97 Room Air 07/23/17 13:30 68 18 195/84 99 Room Air 07/23/17 13:10 72 07/23/17 12:52 63 18 174/89 98 Room Air 07/23/17 12:15 61 18 183/87 97 Room Air 07/23/17 11:54 96 Room Air 07/23/17 11:44 63 18 183/94 96 Room Air 07/23/17 11:32 99 Room Air 07/23/17 10:59 69 07/23/17 10:38 36.5 87 18 186/100 99 Room Air General Appearance: + moderate distress, + thin Head: normocephalic, atraumatic Eyes: normal inspection, + pertinent finding (Injected sclera ) Neck: supple, no JVD Respiratory/Chest: chest non-tender, lungs clear, normal breath sounds Cardiovascular: regular rate, rhythm, no murmur Abdomen/GI: normal bowel sounds, non tender, soft Back: no CVA tenderness, normal range of motion Extremities/Musculoskelatal: no pedal edema, normal range of motion Neurologic/Psych: alert, oriented x 3 Skin: normal color, warm/dry Diagnostics Laboratory Results Results Past 24 Hours Test 07/23/17 10:56 07/23/17 11:09 07/23/17 15:25 Range/Units White Blood Count 4.33 4.8-10.8 K/uL Red Blood Count 4.36 4.2-5.4 M/uL Hemoglobin 13.2 12.0-16.0 g/dL Hematocrit 38.8 37-47 % Mean Corpuscular Volume 89.0 80-100 fL Mean Corpuscular Hemoglobin 30.3 25-34 pg Mean Corpuscular Hemoglobin Concent 34.0 32-36 g/dl RDW Standard Deviation 46.0 36.4-46.3 fL RDW Coefficient of Variation 14.0 11.5-14.5 % Platelet Count 315 130-400 K/uL Mean Platelet Volume 8.9 7.4-10.4 fL Prothrombin Time 10.0 9.0-12.0 SECONDS Prothromb Time International Ratio 1.0 0.9-1.1 Activated Partial Thromboplast Time 25.4 21.0-31.0 SECONDS Partial Thromboplastin Ratio 1.0 Sodium Level 134 136-145 mmol/L Potassium Level 3.5 3.5-5.1 mmol/L Chloride Level 100 98-107 mmol/L Carbon Dioxide Level 26 21-32 mmol/L Anion Gap 8.0 3-11 mmol/L Blood Urea Nitrogen 10 7-18 mg/dl Creatinine 0.60 0.60-1.20 mg/dl Est Creatinine Clear Calc Drug Dose 63.9 ml/min Estimated GFR () 110.9 Estimated GFR (Non- 95.7 BUN/Creatinine Ratio 17.2 10-20 Random Glucose 105 70-99 mg/dl Calcium Level 9.0 8.5-10.1 mg/dl Phosphorus Level 2.8 2.5-4.9 mg/dl Magnesium Level 2.1 1.8-2.4 mg/dl Total Bilirubin 0.7 0.2-1 mg/dl Aspartate Amino Transf (AST/SGOT) 104 15-37 U/L Alanine Aminotransferase (ALT/SGPT) 156 12-78 U/L Alkaline Phosphatase 779 45-117 U/L Total Creatine Kinase 77 26-192 U/L Creatine Kinase MB 1.2 0.5-3.6 ng/ml Creatine Kinase MB Ratio 1.6 0-3.0 Total Protein 7.0 6.4-8.2 gm/dl Albumin 3.7 3.4-5.0 gm/dl Globulin 3.3 2.5-4.0 gm/dl Albumin/Globulin Ratio 1.1 0.9-2 Bedside Troponin I < 0.030 0-0.045 ng/ml Impression Assessment and Plan 66-year-old female with multiple somatic complaints including nausea and anorexia with increased anxiety and weight loss of 10 pounds over the last 3 months Nausea anorexia weight loss and chronically elevated liver transaminase testing. During her last admission she did have an elevated ALESSANDRA titer. She had negative hepatitis serologies. At that point time we were suspicious this could be from medication. However this remains persistent. Will have a gastrology consultation to consider autoimmune hepatitis however I need to do more research to see if antitrypsin copper/ceruloplasmin testing was done. Will follow serial LFTs and order globulin test for the morning her alkaline phosphatase elevation does not fit perfectly with this. 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, this is severe, this likely may be the etiology of her weight loss however we will continue her Librium at slightly higher doses that home and she was tapering off we will hold her Wellbutrin and Lamictal will have a psychiatric consultation Regarding her weight loss will have a nutrition consultation and offer boost supplements with meals Regarding her history of hypertension she states that she stopped taking hydralazine as her blood pressures below as needed hydralazine will be offered DVT prevention will be heparin therapy Resuscitation Status VTE Prophylaxis Will order VTE Prophylaxis: Yes
[2017-07-23] MEDS ORDERED: HydrALAZINE HCL 20 MG/ML VIAL IV PRN (16:45)
[2017-07-23] MEDS ORDERED: IV FLUIDS COMPLETED PRN (16:45)
[2017-07-23 18:00] VITALS: BP 167/78; PULSE 64; TEMP 36.7; O2SAT 98
[2017-07-23] MEDS ORDERED: LORAZEPAM INJ 0.5 MG in SYRINGE 0.75 ML IV PRN (18:30)
[2017-07-23] MEDS: LACTATED RINGER'S 1000ML 1,000 ML IV SCH (18:38)
[2017-07-23] MEDS ORDERED: LORAZEPAM INJ 1 MG in SYRINGE 0.5 ML IV PRN (18:45)
[2017-07-23 19:00] VITALS: BP 167/78; PULSE 64; TEMP 36.7; O2SAT 98; BMI 18.6
[2017-07-23] MEDS: HEPARIN SOD 5000 UNIT/0.5 ML CARP SQ SCH (21:00)
[2017-07-23] MEDS ORDERED: QUETIAPINE FUMARATE 25 MG TAB PO SCH (21:00)
[2017-07-23] MEDS: CHLORDIAZEPOXIDE 10 MG CAP PO SCH (21:32)
[2017-07-23] MEDS: ONDANSETRON INJ 2 MG/ML 2 ML VIAL IV PRN (21:54)
[2017-07-23 23:14] VITALS: BP 132/71; PULSE 62; TEMP 37; O2SAT 97
[2017-07-24] MEDS: LACTATED RINGER'S 1000ML 1,000 ML IV SCH (04:18)
[2017-07-24 05:02] LABS: HEMATOCRIT 32.1 % (37-47); HEMOGLOBIN 10.9 g/dL (12.0-16.0); MEAN CELL VOLUME 89.2 fL (80-100); MEAN CORPUSCULAR HEMOGLOBIN 30.3 pg (25-34); MEAN PLATELET VOLUME 8.5 fL (7.4-10.4); PLATELET COUNT 252 K/uL (130-400); RED CELL DISTRIBUTION WIDTH CV 14.2 % (11.5-14.5); RED CELL DISTRIBUTION WIDTH SD 46.8 fL (36.4-46.3); WHITE BLOOD COUNT 4.56 K/uL (4.8-10.8)
[2017-07-24 05:31] LABS: ALBUMIN 2.8 gm/dl (3.4-5.0); CALCIUM 8.4 mg/dl (8.5-10.1); CREATININE 0.58 mg/dl (0.60-1.20); POTASSIUM 3.9 mmol/L (3.5-5.1)
[2017-07-24 05:38] LABS: TOTAL PROTEIN 5.6 gm/dl (6.4-8.2)
[2017-07-24 06:15] VITALS: BP 132/76; PULSE 64; TEMP 36.6; O2SAT 98
[2017-07-24] MEDS: CHLORDIAZEPOXIDE 10 MG CAP PO SCH (07:34)
[2017-07-24] MEDS: HEPARIN SOD 5000 UNIT/0.5 ML CARP SQ SCH ×2 (07:34→20:36)
[2017-07-24] MEDS ORDERED: NURSING VERBAL MED ORDER ONE (09:15)
[2017-07-24 11:31] VITALS: Ht 152.4 cm; Wt 47.0 kg
--- NOTE | 2017-07-24 11:50 | Medical Consult ---
Consultation Note Date of Service Jul 24, 2017. Consultation Note Full GI consult to follow. Reviewed chart, spoke with and examined patient. Discussed with DR Mcdowell. Taper off Wellbutrin as this is suspicious for cause of elevated LFTS and stop Hydralazine as this can cause elevated ALESSANDRA. Plan EGD/colonoscopy tomorrow for nausea, wt loss and abnormal colon on CT A/P from couple weeks ago.
--- NOTE | 2017-07-24 14:07 | Gastrointestinal Consultation ---
Gastrointestinal Consultation Date of Consultation: Jul 24, 2017 Attending Physician: Dr Mukul Mcdowell Consulting Physician: Dr Efraín Mcghee Reason for Consultation: Elevated LFTS History of Present Illness Patient is a 66 year old female with chief complaint of weakness. HPI Pt with history of anxiety and depression on Lamictal and Welbutrin. She states chronic wellbutrin and that is the only antidepressant which seems to be helpful. She has significant anorexia and nausea for unclear length of time but no vomiting. Is only eating ensure and gatorade. She has lost at least 10 lbs over last couple months. When patient was admitted for syncope 02/2017 she was noted to have significant elevated LFTS. At that time Wellbutrin was cut back form 300 mg to 15 mg. Looking at outpt information from PCP sent to DR Velázquez for upcoming appt this week and also reviewing [facility] EMR the patient has had elevated alk phos since 2012 but under 200. Then 08/2016 alk phos 314 and rising to peak of 1072 on 02/09/17. AST noted to be elevated then peak 185 on 02/08. ALT increased 10/2016 then peak of 185 on 02/08/17. She was drinking some alcohol until february 2017 and stopped except for non alcoholic like Odouls. Workup related to liver includes BW 07/09/17 ALESSANDRA 1:640, AMA neg, ASMA 1:20, LKM neg, ferritin nl, ceruloplasmin nl, Alpha 1 antitrypsin nl, acute hep panel neg. CT a/P with IV contrast 07/09/17 colon diverticulosis mild diffuse pancolitis (pt denies abd pain and diarrhea). RUQ u/s done 07/19/[address] angio of chest 02/[address] Jain 07/2015 for screening non bleeding internal hemorrhoids. Pt had ETOH level 49.5 02/2017 and ordered one to be done on blood drawn on admit but neg test done has todays date on it. Pt with hx of multiple presyncopal events, pain and numbness in arm, weak and shaky. Past Medical/Surgical History Medical Problems: (1) Abdominal discomfort in right lower quadrant Status: Acute (2) Acute chest pain Status: Acute (3) Blurred vision, right eye Status: Acute (4) Central chest pain Status: Acute (5) Chest pain Status: Acute (6) Elevated liver enzymes Status: Acute (7) Generalized weakness Status: Acute (8) HTN (hypertension) Status: Acute (9) Hypertension Status: Acute (10) Hypertensive encephalopathy Status: Acute (11) Hypokalemia Status: Acute (12) Hypokalemia Status: Acute (13) Hyponatremia Status: Acute (14) Hypotension Status: Acute (15) Pre-syncope Status: Acute (16) Precordial chest pain Status: Acute (17) Right ear pain Status: Acute (18) Shortness of breath Status: Acute (19) Syncope Status: Acute (20) Vertigo Status: Acute Social History Problems: (1) Status post colonoscopy Status: Acute Family History Cancer FH: CAD (coronary artery disease) FHx: kidney disease Social History Smoking Status: Never Smoker Alcohol Use: none Drug Use: none Marital Status: single Housing Status: lives alone Occupation Status: unemployed Allergies Coded Allergies: Soy Allergy (Verified Allergy, Severe, ANAPHYLAXIS, 07/23/17) Metronidazole (Verified Allergy, Unknown, ., 07/11/17) Moxifloxacin (Verified Allergy, Unknown, unnknown, 07/11/17) Penicillins (Verified Allergy, Unknown, 07/11/17) Lactose (Verified Adverse Reaction, Intermediate, GI UPSET, DIARRHEA, INTESTINAL PAIN, 07/23/17) Nitroglycerin (Verified Adverse Reaction, Intermediate, SEVERE HYPOTENSION , 07/23/17) Promethazine (Verified Adverse Reaction, Unknown, hallucinations, 07/23/17) Current Medications Home Meds and Scripts Medications Dose Route/Sig Max Daily Dose Days Date Category Dose Instructions Reglan (Metoclopramide HCl) 10 Mg Tab 10 Mg PO Q6H PRN 07/09/17 Rx Hydralazine HCl 25 Mg Tab 25 Mg PO TID PRN 07/09/17 Reported Librium (Chlordiazepoxide) 5 Mg Cap 5 Mg PO BID 07/09/17 Reported Bupropion HCl Xl (Bupropion HCl) 150 Mg Tabcr 150 Mg PO QAM 02/10/17 Rx Apresoline (Hydralazine Hcl) 25 Mg Tab 25 Mg PO TID 02/10/17 Rx B-2 (Riboflavin) Unknown Strength Tab 1 Tab PO DAILY 02/08/17 Reported Lamictal (Lamotrigine) 200 Mg Tab 400 Mg PO DAILY 02/08/17 Reported Hydralazine HCl 10 Mg Tab 5-10 Mg PO Q6H PRN 03/25/16 Reported TAKE 5-10 MG EVERY 6 HOURS NEEDED FOR SYSTOLIC BLOOD PRESSURE GREATER THAN 160 Ondansetron HCl (Ondansetron) 4 Mg Tab 4-8 Mg PO Q6H PRN 08/11/15 Reported Review of Systems see HPI otherwise 10 ROS negative. Physical Exam Date Time Temp Pulse Resp B/P (MAP) Pulse Ox O2 Delivery O2 Flow Rate FiO2 07/24/17 12:00 Room Air 07/24/17 08:00 Room Air 07/24/17 06:15 36.6 64 18 132/76 (94) 98 Room Air 07/24/17 00:00 Room Air 07/23/17 23:14 37.0 62 18 132/71 (91) 97 Room Air 07/23/17 19:00 36.7 64 20 167/78 98 Room Air 07/23/17 18:00 36.7 64 20 167/78 (107) 98 Room Air 07/23/17 17:53 75 18 155/71 99 07/23/17 17:51 75 18 155/71 99 Room Air 07/23/17 17:11 71 07/23/17 16:30 80 20 150/88 99 Room Air 07/23/17 14:27 79 16 165/80 99 Room Air 07/23/17 14:17 67 16 188/97 97 Room Air 07/23/17 14:13 66 16 178/89 97 Room Air 07/23/17 14:03 69 16 182/93 97 Room Air General Appearance: no apparent distress, + cachetic Eyes: normal inspection, PERRL ENT: hearing grossly normal, pharynx normal Neck: supple, trachea midline Respiratory/Chest: lungs clear, no respiratory distress Cardiovascular: regular rate, rhythm, no edema Abdomen: normal bowel sounds, non tender, soft, no organomegaly, no pulsatile mass Extremities: normal range of motion, normal inspection Neurologic/Psych: freight 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 II-XII nml as tested, normal mood/affect, oriented x 3 Skin: normal color, no jaundice Laboratory Results Last 24 Hours Test 07/23/17 22:50 07/24/17 04:51 07/24/17 09:30 Urine Color YELLOW Urine Appearance CLEAR Urine pH 7.5 Urine Specific Bowdle 1.006 Urine Protein NEG Urine Glucose (UA) NEG Urine Ketones NEG Urine Occult Blood NEG Urine Nitrite NEG Urine Bilirubin NEG Urine Urobilinogen NEG Urine Leukocyte Esterase NEG Urine Opiates Screen NEG Urine Methadone, Qualitative NEG Urine Barbiturates NEG Urine Phencyclidine (PCP) Level NEG Ur Amphetamine/Methamphetamine NEG MDMA (Ecstasy) Screen POS Urine Benzodiazepines Screen POS Urine Cocaine Metabolite NEG Urine Marijuana (THC) NEG White Blood Count 4.56 K/uL Red Blood Count 3.60 M/uL Hemoglobin 10.9 g/dL Hematocrit 32.1 % Mean Corpuscular Volume 89.2 fL Mean Corpuscular Hemoglobin 30.3 pg Mean Corpuscular Hemoglobin Concent 34.0 g/dl RDW Standard Deviation 46.8 fL RDW Coefficient of Variation 14.2 % Platelet Count 252 K/uL Mean Platelet Volume 8.5 fL Sodium Level 135 mmol/L Potassium Level 3.9 mmol/L Chloride Level 102 mmol/L Carbon Dioxide Level 26 mmol/L Anion Gap 7.0 mmol/L Blood Urea Nitrogen 7 mg/dl Creatinine 0.58 mg/dl Est Creatinine Clear Calc Drug Dose 66.1 ml/min Estimated GFR () 112.1 Estimated GFR (Non- 96.7 BUN/Creatinine Ratio 11.8 Random Glucose 98 mg/dl Calcium Level 8.4 mg/dl Total Bilirubin 0.5 mg/dl Aspartate Amino Transf (AST/SGOT) 77 U/L Alanine Aminotransferase (ALT/SGPT) 120 U/L Alkaline Phosphatase 628 U/L Total Protein 5.6 gm/dl Albumin 2.8 gm/dl Globulin 2.8 gm/dl Albumin/Globulin Ratio 1.0 Ethyl Alcohol mg/dL < 3.0 mg/dl Impression elevated LFTs--improved with cutting back wellbutrin so suspect drug side effect and would taper that. ASMA only minimal elevation and LKM neg and cholestatic picture so doubt autoimmine hepatitis. If LFTS do not resolve off these meds in 6 weeks then would do liver biopsy. Told patient to also avoid Odouls as that has some alcohol in it. elevated ALESSANDRA--may be from Hydralazine--check anti Histone Ab and sub another medication for hydralazine anemia--drop sinc admit. feritin recently normal. Check Fe sat, b12, folate nausea--recommend EGD wt loss/abnl colon on CT 07/09/2017--recommend colonoscopy anxiety/stress--per attending Pt agreeable to EGD/colo. Will plan for tomorrow with Dr Velázquez. Proc and risks explained which include but not limited to med reaction, bleeding, perforation, aspiration,and missed lesions.
[2017-07-24] MEDS: LORAZEPAM 0.5 MG TAB PO PRN (15:29)
[2017-07-24 15:33] VITALS: BP 193/93; PULSE 97; TEMP 36.8; O2SAT 97
--- NOTE | 2017-07-24 15:43 | Psychiatric Consultation ---
Consultation Date of Consultation Jul 24, 2017. Identifying Data 66-year-old single white female with a history of depression and anxiety who is admitted for weight loss and presyncope. Psychiatry is consulted for anxiety. Chief Complaint "I had a meltdown yesterday ". History of Present Illness The patient presented to the emergency room yesterday with a chief complaint of chest pain, and also reported intermittent feelings of weakness and shakiness and a concern that when she bent over, her pacemaker was not working correctly. She also noted she had recently lost a significant amount of weight. She reported symptoms of panic and was hypertensive, but had a normal exam. EKG was normal sinus rhythm with a QTC of 411. Her lab work showed elevated AST, ALT and alkaline phosphatase. She was going to be discharged, but told the ER physician she did not feel comfortable going home, and that she was considering suing the emergency room doctor she saw in February after a syncopal episode for "almost killing" her. She requested the hospitalist evaluate her, and was admitted to Dr. Mcdowell's service. On his assessment, she mentioned numerous psychosocial stressors and said she was under "unbelievable" distress. Her outpatient psychiatrist has been tapering her off of chlordiazepoxide and bupropion, and she admitted she had been poorly compliant with her lamotrigine. She was restless and fidgety, emotionally labile, with pressured speech and jumping from topic to topic. On admission, he increased her chlordiazepoxide to 10 mg twice daily and held her bupropion and lamotrigine. GI consult was obtained, and Dr. Mcghee saw the patient today. He recommended discontinuation of bupropion as it may be causing elevated liver enzymes. Patient was seen with Greer Torres MS4 with her permission. She states that she was extremely anxious yesterday, which is unusual for her, and attributes this to concerns about her health as well as numerous psychosocial stressors that are ongoing. These include financial problems, health issues, a close friend with a terminal illness, legal problems, and work stress. 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 She does not believe she responded well to multiple SSRIs in the past, although she cannot recall all of her medication trials. 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 At that time, she was started on a Librium taper, and was supposed to be taking 5 mg a day this week and then stopping it. She was also started on a Wellbutrin taper, as it was thought to be causing multiple adverse symptoms, including double vision, dizziness, and syncope. She does note an improvement in those symptoms as the dose has gone down. Her outpatient psychiatrist, Dr. Campbell, has recommended a trial of duloxetine for depression and anxiety, but she says she has resisted this due to concerns that it could cause side effects which would further impair her ability to work, and because she has not responded to SSRIs in the past ( although she is aware that this is a different class of medication). She endorses worsening depression in the past few months, with decreased interest, disrupted sleep, low energy, and decreased appetite with a 10 pound weight loss. At times she has difficulty focusing, but she denies psychomotor changes and suicidal thoughts. She also endorses increasing anxiety, worrying about her stressors, and had a panic attack yesterday. After much discussion, she is willing to start a trial of duloxetine here, as she is aware that she will be tapering off of the bupropion and chlordiazepoxide. Past Psychiatric History Current OP Treatment: psychiatrist (Dr. Campbell), therapist (Cassy Hanley) Prior OP Treatment: psychiatrist (Has seen multiple psychiatrists in the past) Prior Psych Hospitalizations: other (Hospitalized for 2 weeks in [place] in 2000 for depression) Access to a Gun: No Suicide Attempts: No Past Medication Trials Buspirone, sertraline, venlafaxine, fluoxetine, others that she is unable to recall Past Medical/Surgical History History of Concussion/Seizure: Yes (Concussion) (1) Coronary artery disease (2) HYPERTENSION NOS (3) Implantation of cardiac pacemaker (4) Concussion Allergies Allergies: Coded Allergies: Soy Allergy (Verified Allergy, Severe, ANAPHYLAXIS, 07/23/17) Metronidazole (Verified Allergy, Unknown, ., 07/11/17) Moxifloxacin (Verified Allergy, Unknown, unnknown, 07/11/17) Penicillins (Verified Allergy, Unknown, 07/11/17) Lactose (Verified Adverse Reaction, Intermediate, GI UPSET, DIARRHEA, INTESTINAL PAIN, 07/23/17) Nitroglycerin (Verified Adverse Reaction, Intermediate, SEVERE HYPOTENSION , 07/23/17) Promethazine (Verified Adverse Reaction, Unknown, hallucinations, 07/23/17) Home Medications Scheduled Bupropion HCl (Bupropion HCl Xl), 150 MG PO QAM Chlordiazepoxide (Librium), 5 MG PO BID Hydralazine Hcl (Apresoline), 25 MG PO TID Lamotrigine (Lamictal), 400 MG PO DAILY Riboflavin (B-2), 1 TAB PO DAILY Scheduled PRN Hydralazine HCl (Hydralazine HCl), 5-10 MG PO Q6H PRN for Hypertension Hydralazine HCl (Hydralazine HCl), 25 MG PO TID PRN for HYPERTENSION Metoclopramide (Reglan), 10 MG PO Q6H PRN for Nausea Ondansetron (Ondansetron HCl), 4-8 MG PO Q6H PRN for Nausea or Vomiting Family History Cancer FH: CAD (coronary artery disease) FHx: kidney disease History of Suicide: Yes (Father's uncle) History of Substance Abuse: No Psychiatric History: Yes (Sister, mother, and father with depression) Alcohol Use Alcohol Use In Past 12 Months: No Smoking Use Smoking Status: Never Smoker Substance History Denies. 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 Relationship History: other (Single) Spiritual Affiliation: Denominational Legal History: reported (Charges related to taxes, which she states occurred after she hired someone to do her taxes and they were filed incorrectly) Psychological Trauma History: Denies Hx Traumatic Event Examination Vital Signs Vital Signs Past 12 Hours Date Time Temp Pulse Resp B/P (MAP) Pulse Ox O2 Delivery O2 Flow Rate FiO2 07/24/17 12:00 Room Air 07/24/17 08:00 Room Air 07/24/17 06:15 36.6 64 18 132/76 (94) 98 Room Air Laboratory Results Last 24 Hours Test 07/23/17 22:50 07/24/17 04:51 07/24/17 09:30 Urine Color YELLOW Urine Appearance CLEAR Urine pH 7.5 Urine Specific [place] 1.006 Urine Protein NEG Urine Glucose (UA) NEG Urine Ketones NEG Urine Occult Blood NEG Urine Nitrite NEG Urine Bilirubin NEG Urine Urobilinogen NEG Urine Leukocyte Esterase NEG Urine Opiates Screen NEG Urine Methadone, Qualitative NEG Urine Barbiturates NEG Urine Phencyclidine (PCP) Level NEG Ur Amphetamine/Methamphetamine NEG MDMA (Ecstasy) Screen POS Urine Benzodiazepines Screen POS Urine Cocaine Metabolite NEG Urine Marijuana (THC) NEG White Blood Count 4.56 K/uL Red Blood Count 3.60 M/uL Hemoglobin 10.9 g/dL Hematocrit 32.1 % Mean Corpuscular Volume 89.2 fL Mean Corpuscular Hemoglobin 30.3 pg Mean Corpuscular Hemoglobin Concent 34.0 g/dl RDW Standard Deviation 46.8 fL RDW Coefficient of Variation 14.2 % Platelet Count 252 K/uL Mean Platelet Volume 8.5 fL Sodium Level 135 mmol/L Potassium Level 3.9 mmol/L Chloride Level 102 mmol/L Carbon Dioxide Level 26 mmol/L Anion Gap 7.0 mmol/L Blood Urea Nitrogen 7 mg/dl Creatinine 0.58 mg/dl Est Creatinine Clear Calc Drug Dose 66.1 ml/min Estimated GFR () 112.1 Estimated GFR (Non- 96.7 BUN/Creatinine Ratio 11.8 Random Glucose 98 mg/dl Calcium Level 8.4 mg/dl Total Bilirubin 0.5 mg/dl Aspartate Amino Transf (AST/SGOT) 77 U/L Alanine Aminotransferase (ALT/SGPT) 120 U/L Alkaline Phosphatase 628 U/L Total Protein 5.6 gm/dl Albumin 2.8 gm/dl Globulin 2.8 gm/dl Albumin/Globulin Ratio 1.0 Ethyl Alcohol mg/dL < 3.0 mg/dl Mental Examination During interview pt is: alert and oriented, cooperative Appearance: appropriately dressed, appropriately groomed, other (Thin) Eye contact is: good Motor behavior is: steady gait & station, no abnormal motor movements Speech: other (Hyperverbal) Affect: mood congruent, anxious Mood is: anxious Thought process: circumstantial Thought content: reality based without delusions Suicidal thought are: denied Homicidal thoughts are: denied Hallucinations: denies auditory, denies visual Cognition: memory grossly intact, language grossly intact, other (Attention impaired) Intelligence estimated to be: consistent with level of education Insight: fair Judgement: fair Impression / Recommendations Impression 66-year-old female with a history of depression and anxiety who was admitted with multiple symptoms including weight loss, weakness, shakiness, and anxiety. We are consulted to assist with management of her anxiety and depression. Her case is complicated by her comorbid medical issues, some of which appear to be affected by her antidepressant medication. Apparently it was recommended 5 months ago that she be tapered off of bupropion and benzodiazepines, but those tapers have not yet been completed. I have a call into Dr. Campbell to further discuss past medication trials and his recommendations for medications, but in the interim, agree with discontinuing bupropion XL, completing the taper off of chlordiazepoxide (she was to take 5 mg a day this week, and then stop it), and a trial of duloxetine to target mood and anxiety. She states she had already discussed the duloxetine trial with Dr. Campbell, and is agreeable to start that medication here. I will start 20 mg daily, and this will need to be further titrated as an outpatient. Lamotrigine was discontinued on admission, and should not be resumed unless she is able to commit to taking it daily, due to the risk of Gallego-Sen syndrome if she is taking it erratically. It is a good option for augmentation, and it appears she was tolerating it well, but would need to be restarted at 25mg daily and retitrated following the standard titration protocol once she is off it for several days. I will ask the liaison nurse to get a release so that records can be shared with Dr. Campbell and to ensure she has an appointment scheduled. She should also continue psychotherapy with Cassy Hanley.
[2017-07-24 16:00] VITALS: O2SAT 97
[2017-07-24] MEDS ORDERED: DULOXETINE HCL 20 MG CAP PO ONE (16:00)
[2017-07-24] MEDS ORDERED: BISACODYL 5 MG TABEC PO ONE (16:00)
[2017-07-24] MEDS ORDERED: LAVAGE SOLUTION 4000ML PO SCH (16:00)
[2017-07-24] MEDS: ONDANSETRON INJ 2 MG/ML 2 ML VIAL IV PRN ×2 (16:14→23:30)
[2017-07-24 16:25] VITALS: BP 187/72
[2017-07-24 16:42] VITALS: BP 186/83
[2017-07-24] MEDS ORDERED: CLONIDINE HCL 0.1 MG TAB PO ONE (17:00)
[2017-07-24] MEDS ORDERED: hydrOXYzine HCL 25 MG TAB PO PRN (17:00)
[2017-07-24 17:13] VITALS: BP 175/92; PULSE 62
[2017-07-24] MEDS ORDERED: CHLORDIAZEPOXIDE 10 MG CAP PO SCH (21:00)
[2017-07-24] MEDS: CHLORDIAZEPOXIDE 5 MG CAP PO SCH (22:06)
[2017-07-25 00:14] VITALS: BP 170/83; PULSE 56; TEMP 36.4; O2SAT 98
[2017-07-25 07:03] VITALS: BP 170/93; PULSE 77; TEMP 36.7; O2SAT 96
[2017-07-25 08:09] LABS: ALBUMIN 3.1 gm/dl (3.4-5.0); CALCIUM 9.1 mg/dl (8.5-10.1); CREATININE 0.53 mg/dl (0.60-1.20); POTASSIUM 3.8 mmol/L (3.5-5.1)
[2017-07-25 08:12] LABS: TOTAL PROTEIN 6.1 gm/dl (6.4-8.2)
[2017-07-25] MEDS: DULOXETINE HCL 20 MG CAP PO SCH (08:54)
[2017-07-25] MEDS: HEPARIN SOD 5000 UNIT/0.5 ML CARP SQ SCH ×2 (09:00→21:00)
[2017-07-25] MEDS: ONDANSETRON INJ 2 MG/ML 2 ML VIAL IV PRN ×3 (09:27→23:20)
[2017-07-25] MEDS: CHLORDIAZEPOXIDE 5 MG CAP PO SCH ×2 (09:27→21:38)
--- NOTE | 2017-07-25 09:52 | Psychiatric Progress Notes ---
Psychiatric Progress Note Date of Service Jul 25, 2017. Notes 66-year-old single white female with a history of depression and anxiety who is admitted for weight loss and presyncope. Psychiatry is consulted for anxiety. Patient seen today for follow-up. CC: "Didn't sleep." Interval history: Patient was seen yesterday for initial consult, and started on duloxetine 20 mg daily for mood and anxiety. On admission, bupropion and lamotrigine were discontinued. She is on a Librium taper due to benzodiazepine dependence and elevated LFTs. Discussed the case with Dr. Mcdowell and Dr. Campbell, her outpatient psychiatrist. This morning, the patient states that she could not sleep last night, and asked for Ativan, receiving 0.5 mg this morning. She continues to state that her anxiety is much improved from admission, although she continues with daily, chronic worry and rumination about multiple things. She remains focused on wanting to leave the hospital, stating she would sleep better at home and has lots of things to take care of at home. She reports anxiety due to "not knowing what the plan is, no one told me what is going on." She indicates that she would prefer to go home and sleep , stating the GI physician told her that her workup could be done as an outpatient. She further reports she does not feel she has a good relationship with her outpatient psychiatrist, and is interested in getting a new psychiatrist, but has not looked into her options. When it was suggested that if she pursues this, she could start with contacting her insurance to determine which local psychiatrists are paneled, her responses that it would not be very nice of the physicians not to accept her Medicare. She states she "lives with a doctor for 15 years so I know how this works." She was encouraged to continue to follow up with her current psychiatrist in the interim, so that she does not find herself without a physician to manage her psychiatric medications. When asked about her compliance with lamotrigine, she states that she missed doses on 50% of days for years, stating "I never understood what it was for, and did not think it helped." She was informed that due to the risks of taking the medication incorrectly, it has been discontinued and I would not recommend she resume it, and she agreed. She was advised that if she stays in the hospital for another day or 2, I would recommend increasing her duloxetine to 40 mg prior to discharge, but she continues to hope for discharge today. Encouraged her to discuss her questions with the primary team. ROS: + sleepiness, no SI, HI, AVH, paranoia, panic Thin WF appearing stated age. Wearing hospital gown and adequately groomed. Calm and cooperative. Seated in NAD, with fair eye contact and no abnormal movements. Speech is normal rate, volume, and tone. Mood is "tired," and affect is stable and congruent. Thoughts are circumferential. The patient denied suicidal and homicidal ideation. No paranoia, delusions, or hallucinations, and did not appear to be responding to internal stimuli. Cognition was grossly intact. Alert and oriented to person, place and time. Intelligence is consistent with level of education. Insight and and judgment are fair. Recommendations: 1. Depression and anxiety: Continue duloxetine 20 mg daily, and recommended increasing to 40 mg daily if she remains in the hospital tomorrow. Lamotrigine should not be resumed due to her inability to take it as prescribed. Continue taper off chlordiazepoxide. Follow-up as scheduled with Dr. Campbell and therapist Cassy Hanley.
--- NOTE | 2017-07-25 14:26 | Gastroenterology Progress Note ---
Progress Note Date of Service: Jul 25, 2017 Subjective Pt evaluation today including: conversation w/ patient, physical exam, chart review, lab review, review of studies, review of inpatient medication list CC f/u anorexia, elev LFTS HPI Pt drank one or two glasses only of golytely last night and had abd pain did not drink anymore. She dranks liquids this afternoon so both EGD and colo cancelled. Abd pain present but better. Review of Systems Respiratory: No shortness of breath Cardiac: No chest pain Medications Current Inpatient Medications Medications (Trade) Dose Ordered Sig/Trip Route Start Time Stop Time Status Last Admin Dose Admin Acetaminophen (Tylenol Tab) 650 mg Q4H PRN PO 07/23/17 16:15 08/22/17 16:14 Al Hydrox/Mg Hydrox/Simethicone (Maalox Max Susp) 15 ml Q4H PRN PO 07/23/17 16:15 08/22/17 16:14 Magnesium Hydroxide (Milk Of Magnesia Susp) 30 ml Q6H PRN PO 07/23/17 16:15 08/22/17 16:14 Ondansetron HCl (Zofran Inj) 4 mg Q6H PRN IV 07/23/17 16:15 08/22/17 16:14 07/25/17 09:27 4 MG Heparin Sodium (Porcine) (Heparin Sq 5000 Unit/0.5ml) 5,000 unit Q12 SQ 07/23/17 21:00 08/22/17 20:59 Lorazepam (Ativan Tab) 0.5 mg Q6 PRN PO 07/23/17 16:15 08/22/17 16:14 07/24/17 15:29 0.5 MG Lorazepam (Ativan Inj) 1 mg Q4H PRN IV 07/23/17 16:15 08/22/17 16:14 Lorazepam (Ativan Inj) 0.5 mg Q4H PRN IV 07/23/17 16:15 08/22/17 16:14 Miscellaneous (Iv Fluids Completed) 1 ea PRN PRN N/A 07/23/17 16:45 07/23/18 16:44 Lorazepam 0.5 mg/ Syringe 1 ml @ 1 mls/min Q4H PRN IV 07/23/17 18:30 08/22/17 18:29 07/25/17 05:03 1 MLS/MIN Lorazepam 1 mg/ Syringe 1 ml @ 1 mls/min Q4H PRN IV 07/23/17 18:45 08/22/17 18:44 07/25/17 13:32 1 MLS/MIN Duloxetine HCl (Cymbalta Cap) 20 mg QAM PO 07/25/17 09:00 08/24/17 08:59 07/25/17 08:54 20 MG Hydroxyzine HCl (Vistaril Tab) 25 mg Q8 PRN PO 07/24/17 17:00 08/23/17 16:59 Chlordiazepoxide (Librium Cap) 5 mg BID PO 07/24/17 21:00 08/22/17 20:59 07/25/17 09:27 5 MG Objective Vital Signs Date Time Temp Pulse Resp B/P (MAP) Pulse Ox O2 Delivery O2 Flow Rate FiO2 07/25/17 10:57 Room Air 07/25/17 07:03 36.7 77 20 170/93 (118) 96 07/25/17 00:14 36.4 56 18 170/83 (112) 98 Room Air 07/25/17 00:00 Room Air 07/24/17 17:13 62 175/92 (119) 07/24/17 16:42 186/83 (117) 07/24/17 16:25 187/72 (110) 07/24/17 16:00 97 Room Air 07/24/17 15:33 36.8 97 18 193/93 (126) 97 Room Air Physical Exam General Appearance: WD/WN, no apparent distress Respiratory/Chest: lungs clear, no respiratory distress Cardiovascular: regular rate, rhythm, no edema Abdomen: normal bowel sounds, non tender, soft, no organomegaly, no pulsatile mass Neurologic/Psych: alert, normal mood/affect, oriented x 3 Skin: normal color Laboratory Results Last 24 Hours Test 07/25/17 07:26 Sodium Level 131 mmol/L Potassium Level 3.8 mmol/L Chloride Level 98 mmol/L Carbon Dioxide Level 27 mmol/L Anion Gap 7.0 mmol/L Blood Urea Nitrogen 5 mg/dl Creatinine 0.53 mg/dl Est Creatinine Clear Calc Drug Dose 76.0 ml/min Estimated GFR () 115.5 Estimated GFR (Non- 99.6 BUN/Creatinine Ratio 8.7 Random Glucose 98 mg/dl Calcium Level 9.1 mg/dl Total Iron Binding Capacity 353 mcg/dl Total Bilirubin 0.8 mg/dl Aspartate Amino Transf (AST/SGOT) 126 U/L Alanine Aminotransferase (ALT/SGPT) 157 U/L Alkaline Phosphatase 758 U/L Total Protein 6.1 gm/dl Albumin 3.1 gm/dl Globulin 2.9 gm/dl Albumin/Globulin Ratio 1.1 Vitamin B12 Level 541 pg/mL Folate 16.55 ng/mL Assessment and Plan elevated LFTs--improved with cutting back wellbutrin so suspect drug side effect and would taper that. ASMA only minimal elevation and LKM neg and cholestatic picture so doubt autoimmine hepatitis. If LFTS do not resolve off these meds in 6 weeks then would do liver biopsy. Told patient to also avoid Odouls as that has some alcohol in it. worse today but too early to tell any change elevated ALESSANDRA--may be from Hydralazine--check anti Histone Ab and sub another medication for hydralazine anemia--drop [facility] admit. feritin recently normal. Check Fe sat, b12 and folate ok nausea--recommend EGD but now do as outpt along with colonoscopy wt loss/abnl colon on CT 07/09/2017--recommend colonoscopy but could not take prep. Do as outpt so other prep options available. anxiety/stress--per attending Resume diet. Outpt EGD/colo as above. Discussed with DR Mcdowell.
[2017-07-25 15:28] VITALS: BP 162/76; PULSE 66; TEMP 37.1; O2SAT 93
--- NOTE | 2017-07-25 18:06 | Progress Note ---
Subjective Date of Service: Jul 24, 2017. Subjective pt feels that she did not sleep overnight and is very concerned about possible procedures Problem List Medical Problems: (1) Abdominal discomfort in right lower quadrant Status: Acute (2) Acute chest pain Status: Acute (3) Blurred vision, right eye Status: Acute (4) Central chest pain Status: Acute (5) Chest pain Status: Acute (6) Elevated liver enzymes Status: Acute (7) Generalized weakness Status: Acute (8) HTN (hypertension) Status: Acute (9) Hypertension Status: Acute (10) Hypertensive encephalopathy Status: Acute (11) Hypokalemia Status: Acute (12) Hypokalemia Status: Acute (13) Hyponatremia Status: Acute (14) Hypotension Status: Acute (15) Pre-syncope Status: Acute (16) Precordial chest pain Status: Acute (17) Right ear pain Status: Acute (18) Shortness of breath Status: Acute (19) Syncope Status: Acute (20) Vertigo Status: Acute Social History Problems: (1) Status post colonoscopy Status: Acute Review of Systems Constitutional: + weakness, No fever, No chills Respiratory: No cough, No shortness of breath Cardiac: No chest pain, No edema Abdomen: No pain, No nausea, No vomiting, No diarrhea, No constipation Musculoskeletal: No joint pain, No muscle pain Psychiatric: + depression symptoms, + anxiety Objective Vital Signs Date Time Temp Pulse Resp B/P (MAP) Pulse Ox O2 Delivery O2 Flow Rate FiO2 07/24/17 16:42 186/83 (117) 07/24/17 16:25 187/72 (110) 07/24/17 15:33 36.8 97 18 193/93 (126) 97 Room Air 07/24/17 12:00 Room Air 07/24/17 08:00 Room Air 07/24/17 06:15 36.6 64 18 132/76 (94) 98 Room Air 07/24/17 00:00 Room Air 07/23/17 23:14 37.0 62 18 132/71 (91) 97 Room Air 07/23/17 19:00 36.7 64 20 167/78 98 Room Air 07/23/17 18:00 36.7 64 20 167/78 (107) 98 Room Air 07/23/17 17:53 75 18 155/71 99 07/23/17 17:51 75 18 155/71 99 Room Air 07/23/17 17:11 71 Physical Exam General Appearance: WD/WN, + mild distress, + thin Eyes: normal inspection, sclerae normal Neck: supple, no JVD Respiratory/Chest: chest non-tender, lungs clear, normal breath sounds Cardiovascular: regular rate, rhythm, no murmur Abdomen: normal bowel sounds, non tender, soft Neurologic/Psychiatric: alert, oriented x 3 Laboratory Results Last 24 Hours Test 07/23/17 22:50 07/24/17 04:51 07/24/17 09:30 Urine Color YELLOW Urine Appearance CLEAR Urine pH 7.5 Urine Specific [place] 1.006 Urine Protein NEG Urine Glucose (UA) NEG Urine Ketones NEG Urine Occult Blood NEG Urine Nitrite NEG Urine Bilirubin NEG Urine Urobilinogen NEG Urine Leukocyte Esterase NEG Urine Opiates Screen NEG Urine Methadone, Qualitative NEG Urine Barbiturates NEG Urine Phencyclidine (PCP) Level NEG Ur Amphetamine/Methamphetamine NEG MDMA (Ecstasy) Screen POS Urine Benzodiazepines Screen POS Urine Cocaine Metabolite NEG Urine Marijuana (THC) NEG White Blood Count 4.56 K/uL Red Blood Count 3.60 M/uL Hemoglobin 10.9 g/dL Hematocrit 32.1 % Mean Corpuscular Volume 89.2 fL Mean Corpuscular Hemoglobin 30.3 pg Mean Corpuscular Hemoglobin Concent 34.0 g/dl RDW Standard Deviation 46.8 fL RDW Coefficient of Variation 14.2 % Platelet Count 252 K/uL Mean Platelet Volume 8.5 fL Sodium Level 135 mmol/L Potassium Level 3.9 mmol/L Chloride Level 102 mmol/L Carbon Dioxide Level 26 mmol/L Anion Gap 7.0 mmol/L Blood Urea Nitrogen 7 mg/dl Creatinine 0.58 mg/dl Est Creatinine Clear Calc Drug Dose 66.1 ml/min Estimated GFR () 112.1 Estimated GFR (Non- 96.7 BUN/Creatinine Ratio 11.8 Random Glucose 98 mg/dl Calcium Level 8.4 mg/dl Total Bilirubin 0.5 mg/dl Aspartate Amino Transf (AST/SGOT) 77 U/L Alanine Aminotransferase (ALT/SGPT) 120 U/L Alkaline Phosphatase 628 U/L Total Protein 5.6 gm/dl Albumin 2.8 gm/dl Globulin 2.8 gm/dl Albumin/Globulin Ratio 1.0 Ethyl Alcohol mg/dL < 3.0 mg/dl Assessment and Plan 66-year-old female with multiple somatic complaints including nausea and anorexia with increased anxiety and reportedly weight loss of 10 pounds over the last 3 months Nausea anorexia weight loss and chronically elevated liver transaminase testing. GI medicine and I are suspicious this could be from medication. However this remains persistent. IVF stopped, considering colo and egd Anxiety, Psychiatry is agreeable to stopping Wellbutrin and Lamictal and starting cymbalta Regarding her weight loss will have a nutrition consultation and offer boost supplements with meals Regarding her history of hypertension will consider holding hydralazine as maybe responsible for increased ALESSANDRA DVT prevention will be heparin therapy
--- NOTE | 2017-07-25 18:09 | Progress Note ---
Subjective Date of Service: Jul 25, 2017. Subjective Pt could not tolerated the colonoscopy prep, is tolerating cymbalta, and now is hypertesive, did tolerate reduction of librim 07/24 Problem List Medical Problems: (1) Abdominal discomfort in right lower quadrant Status: Acute (2) Acute chest pain Status: Acute (3) Blurred vision, right eye Status: Acute (4) Central chest pain Status: Acute (5) Chest pain Status: Acute (6) Elevated liver enzymes Status: Acute (7) Generalized weakness Status: Acute (8) HTN (hypertension) Status: Acute (9) Hypertension Status: Acute (10) Hypertensive encephalopathy Status: Acute (11) Hypokalemia Status: Acute (12) Hypokalemia Status: Acute (13) Hyponatremia Status: Acute (14) Hypotension Status: Acute (15) Pre-syncope Status: Acute (16) Precordial chest pain Status: Acute (17) Right ear pain Status: Acute (18) Shortness of breath Status: Acute (19) Syncope Status: Acute (20) Vertigo Status: Acute Social History Problems: (1) Status post colonoscopy Status: Acute Review of Systems Constitutional: No fever, No chills, No weakness ENT: No hearing loss, No unusual epistaxis, No nasal symptoms Respiratory: No cough, No sputum, No wheezing Abdomen: No pain, No nausea, No vomiting Musculoskeletal: No joint pain, No muscle pain Neurologic: No memory loss, No weakness Psychiatric: + anxiety Objective Vital Signs Date Time Temp Pulse Resp B/P (MAP) Pulse Ox O2 Delivery O2 Flow Rate FiO2 07/25/17 16:00 Room Air 07/25/17 15:28 37.1 66 16 162/76 (104) 93 Room Air 07/25/17 10:57 Room Air 07/25/17 07:03 36.7 77 20 170/93 (118) 96 07/25/17 00:14 36.4 56 18 170/83 (112) 98 Room Air 07/25/17 00:00 Room Air Physical Exam General Appearance: WD/WN, + mild distress Eyes: normal inspection, sclerae normal Neck: supple, no JVD Respiratory/Chest: chest non-tender, lungs clear, normal breath sounds Cardiovascular: regular rate, rhythm, no murmur Abdomen: normal bowel sounds, non tender, soft Neurologic/Psychiatric: alert, oriented x 3 Laboratory Results Last 24 Hours Test 07/25/17 07:26 Sodium Level 131 mmol/L Potassium Level 3.8 mmol/L Chloride Level 98 mmol/L Carbon Dioxide Level 27 mmol/L Anion Gap 7.0 mmol/L Blood Urea Nitrogen 5 mg/dl Creatinine 0.53 mg/dl Est Creatinine Clear Calc Drug Dose 76.0 ml/min Estimated GFR () 115.5 Estimated GFR (Non- 99.6 BUN/Creatinine Ratio 8.7 Random Glucose 98 mg/dl Calcium Level 9.1 mg/dl Total Iron Binding Capacity 353 mcg/dl Total Bilirubin 0.8 mg/dl Aspartate Amino Transf (AST/SGOT) 126 U/L Alanine Aminotransferase (ALT/SGPT) 157 U/L Alkaline Phosphatase 758 U/L Total Protein 6.1 gm/dl Albumin 3.1 gm/dl Globulin 2.9 gm/dl Albumin/Globulin Ratio 1.1 Vitamin B12 Level 541 pg/mL Folate 16.55 ng/mL Assessment and Plan 66-year-old female with multiple somatic complaints including nausea and anorexia with increased anxiety and reportedly weight loss of 10 pounds over the last 3 months Nausea anorexia weight loss and chronically elevated liver transaminase testing. GI medicine and I are suspicious this could be from medication. will stop welbutrin and follow, post phone colonoscopy to out pt, Anxiety, Psychiatry is agreeable to stopping Wellbutrin and Lamictal and pt is tolerating cymbalta, will increase dose at discharge Regarding her history of hypertension has been elevated since holding hydralazine I did personally discuss atenolol with patient and Dr Sykes, will start low dose to try to help both htn and anxiety DVT prevention will be heparin therapy
[2017-07-25 18:36] VITALS: BP 157/80; PULSE 67
[2017-07-25 19:05] VITALS: BP 153/84; PULSE 62; TEMP 36.8; O2SAT 93
[2017-07-25 23:14] VITALS: BP 171/78; PULSE 63; TEMP 36.8; O2SAT 90
[2017-07-25] MEDS: LORAZEPAM 0.5 MG TAB PO PRN (23:20)
[2017-07-26 00:30] VITALS: BP 170/85; PULSE 60
[2017-07-26 07:07] LABS: BASO % 0.2 %; BASO ABS # 0.01 K/uL (0-0.2); EOS % 4.7 %; EOS ABS # 0.26 K/uL (0-0.5); HEMATOCRIT 34.5 % (37-47); IG# 0.02 K/uL (0.00-0.02); LYMPH % 21.8 %; MEAN CELL VOLUME 87.1 fL (80-100); MEAN CORPUSCULAR HEMOGLOBIN 30.3 pg (25-34); MEAN CORPUSCULAR HGB CONC 34.8 g/dl (32-36); MEAN PLATELET VOLUME 8.8 fL (7.4-10.4); MONO % 12.9 %; MONO ABS # 0.71 K/uL (0.11-0.59); PLATELET COUNT 284 K/uL (130-400); RED CELL DISTRIBUTION WIDTH CV 13.7 % (11.5-14.5); RED CELL DISTRIBUTION WIDTH SD 43.7 fL (36.4-46.3)
[2017-07-26 07:37] LABS: ALBUMIN 2.8 gm/dl (3.4-5.0); CALCIUM 8.5 mg/dl (8.5-10.1); CREATININE 0.6 mg/dl (0.60-1.20); POTASSIUM 3.9 mmol/L (3.5-5.1)
[2017-07-26 07:39] LABS: TOTAL PROTEIN 5.9 gm/dl (6.4-8.2)
[2017-07-26 07:49] VITALS: BP 166/82; PULSE 60; TEMP 36.9; O2SAT 97
[2017-07-26 08:00] VITALS: O2SAT 97
[2017-07-26] MEDS: HEPARIN SOD 5000 UNIT/0.5 ML CARP SQ SCH ×2 (09:00→20:45)
[2017-07-26] MEDS: DULOXETINE HCL 20 MG CAP PO SCH (09:07)
[2017-07-26] MEDS: CHLORDIAZEPOXIDE 5 MG CAP PO SCH ×2 (09:12→20:44)
[2017-07-26 12:56] LABS: CALCIUM 8.7 mg/dl (8.5-10.1); CREATININE 0.57 mg/dl (0.60-1.20); POTASSIUM 3.9 mmol/L (3.5-5.1)
[2017-07-26 14:48] VITALS: BP 166/89; PULSE 49; TEMP 36.9; O2SAT 95
[2017-07-26 15:55] VITALS: O2SAT 97
[2017-07-26] MEDS ORDERED: NURSING VERBAL MED ORDER ONE (17:15)
[2017-07-26] MEDS: SODIUM CHLORIDE 0.9% 1000ML 1,000 ML IV SCH (17:20)
[2017-07-26] MEDS: ONDANSETRON INJ 2 MG/ML 2 ML VIAL IV PRN (17:23)
--- NOTE | 2017-07-26 17:37 | Progress Note ---
Subjective Date of Service: Jul 26, 2017. Subjective Patient feels little dizzy or spacey today. Her sodium is dropped down to 125 this is likely related to her colonoscopy preparation and drinking some free water we discussed her not having as much free water having Gatorade will fluid restrict her and give her some normal saline overnight to hopefully improve her sodium by the morning she is tolerating her atenolol without difficulty likewise her Cymbalta Problem List Medical Problems: (1) Abdominal discomfort in right lower quadrant Status: Acute (2) Acute chest pain Status: Acute (3) Blurred vision, right eye Status: Acute (4) Central chest pain Status: Acute (5) Chest pain Status: Acute (6) Elevated liver enzymes Status: Acute (7) Generalized weakness Status: Acute (8) HTN (hypertension) Status: Acute (9) Hypertension Status: Acute (10) Hypertensive encephalopathy Status: Acute (11) Hypokalemia Status: Acute (12) Hypokalemia Status: Acute (13) Hyponatremia Status: Acute (14) Hypotension Status: Acute (15) Pre-syncope Status: Acute (16) Precordial chest pain Status: Acute (17) Right ear pain Status: Acute (18) Shortness of breath Status: Acute (19) Syncope Status: Acute (20) Vertigo Status: Acute Social History Problems: (1) Status post colonoscopy Status: Acute Review of Systems Constitutional: + weakness, + fatigue, No fever, No chills Respiratory: No cough, No shortness of breath, No dyspnea on exertion Cardiac: No chest pain, No edema Abdomen: No pain, No nausea, No vomiting, No diarrhea Female : No dysuria, No urinary frequency Neurologic: + weakness Psychiatric: + depression symptoms, + anxiety, + insomnia Objective Vital Signs Date Time Temp Pulse Resp B/P (MAP) Pulse Ox O2 Delivery O2 Flow Rate FiO2 07/26/17 15:55 97 Room Air 07/26/17 14:48 36.9 49 18 166/89 (114) 95 07/26/17 08:00 97 Room Air 07/26/17 07:49 36.9 60 18 166/82 (110) 97 07/26/17 00:30 60 170/85 (113) 07/25/17 23:21 Room Air 07/25/17 23:14 36.8 63 16 171/78 (109) 90 Room Air 07/25/17 19:05 36.8 62 16 153/84 (107) 93 Room Air 07/25/17 18:36 67 157/80 (105) Physical Exam General Appearance: WD/WN, + mild distress, + thin Eyes: normal inspection, sclerae normal Neck: supple, no JVD Respiratory/Chest: chest non-tender, lungs clear, normal breath sounds, no respiratory distress Cardiovascular: regular rate, rhythm, no murmur Abdomen: normal bowel sounds, non tender, soft Neurologic/Psychiatric: alert, oriented x 3 Laboratory Results Last 24 Hours Test 07/26/17 06:33 07/26/17 12:09 White Blood Count 5.50 K/uL Red Blood Count 3.96 M/uL Hemoglobin 12.0 g/dL Hematocrit 34.5 % Mean Corpuscular Volume 87.1 fL Mean Corpuscular Hemoglobin 30.3 pg Mean Corpuscular Hemoglobin Concent 34.8 g/dl Platelet Count 284 K/uL Mean Platelet Volume 8.8 fL Neutrophils (%) (Auto) 60.0 % Lymphocytes (%) (Auto) 21.8 % Monocytes (%) (Auto) 12.9 % Eosinophils (%) (Auto) 4.7 % Basophils (%) (Auto) 0.2 % Neutrophils # (Auto) 3.30 K/uL Lymphocytes # (Auto) 1.20 K/uL Monocytes # (Auto) 0.71 K/uL Eosinophils # (Auto) 0.26 K/uL Basophils # (Auto) 0.01 K/uL RDW Standard Deviation 43.7 fL RDW Coefficient of Variation 13.7 % Immature Granulocyte % (Auto) 0.4 % Immature Granulocyte # (Auto) 0.02 K/uL Prothrombin Time 10.3 SECONDS Prothromb Time International Ratio 1.0 Sodium Level 125 mmol/L 125 mmol/L Potassium Level 3.9 mmol/L 3.9 mmol/L Chloride Level 91 mmol/L 92 mmol/L Carbon Dioxide Level 27 mmol/L 27 mmol/L Anion Gap 7.0 mmol/L 6.0 mmol/L Blood Urea Nitrogen 10 mg/dl 9 mg/dl Creatinine 0.60 mg/dl 0.57 mg/dl Est Creatinine Clear Calc Drug Dose 67.1 ml/min 70.7 ml/min Estimated GFR () 110.9 112.7 Estimated GFR (Non- 95.7 97.3 BUN/Creatinine Ratio 16.4 15.9 Random Glucose 95 mg/dl 129 mg/dl Calcium Level 8.5 mg/dl 8.7 mg/dl Iron Level 63 mcg/dl Total Iron Binding Capacity 337 mcg/dl Transferrin 247 mg/dl Transferrin % Saturation 18 % Total Bilirubin 0.7 mg/dl Aspartate Amino Transf (AST/SGOT) 174 U/L Alanine Aminotransferase (ALT/SGPT) 192 U/L Alkaline Phosphatase 850 U/L Total Protein 5.9 gm/dl Albumin 2.8 gm/dl Globulin 3.1 gm/dl Albumin/Globulin Ratio 0.9 Assessment and Plan 66-year-old female with multiple somatic complaints including nausea and anorexia with increased anxiety and reportedly weight loss of 10 pounds over the last 3 months Nausea anorexia weight loss and chronically elevated liver transaminase testing. GI medicine and I are suspicious this could be from medication. have stopped welbutrin, post phone colonoscopy to out pt, hyponatremia, will have fluid restriction and check random urine sodium Anxiety, Psychiatry has started cymbalta, will increase dose at discharge, is off welbutrin Regarding her history of hypertension has been elevated since holding hydralazine I did personally discuss atenolol with patient and Dr Sykes, he agrees to start atenolol DVT prevention will be heparin therapy
[2017-07-26] MEDS: LORAZEPAM 0.5 MG TAB PO PRN (23:35)
[2017-07-27 00:02] VITALS: BP 178/85; PULSE 50; TEMP 36.6; O2SAT 96
[2017-07-27] MEDS: SODIUM CHLORIDE 0.9% 1000ML 1,000 ML IV SCH ×2 (03:11→13:15)
[2017-07-27 07:11] VITALS: BP 149/76; PULSE 49; TEMP 36.8; O2SAT 98
[2017-07-27 08:00] VITALS: O2SAT 97
[2017-07-27] MEDS: HEPARIN SOD 5000 UNIT/0.5 ML CARP SQ SCH (09:00)
[2017-07-27] MEDS: DULOXETINE HCL 20 MG CAP PO SCH (09:24)
[2017-07-27] MEDS: LORAZEPAM 0.5 MG TAB PO PRN (09:34)
[2017-07-27] MEDS: CHLORDIAZEPOXIDE 5 MG CAP PO SCH (09:34)
[2017-07-27 10:16] LABS: CALCIUM 8.6 mg/dl (8.5-10.1); CREATININE 0.6 mg/dl (0.60-1.20); TOTAL PROTEIN 6.2 gm/dl (6.4-8.2)
[2017-07-27] MEDS ORDERED: CYM20 PO (11:31)
--- NOTE | 2017-07-27 11:35 | Discharge Instructions ---
Discharge Instructions Date of Service Jul 27, 2017. Admission Reason for Admission: Hyponatremia Discharge Discharge Diagnosis / Problem: transaminitis, anxiety Discharge Goals Goal(s): Diagnostic testing, Therapeutic intervention Activity Recommendations Activity Limitations: as noted below . Current Hospital Diet Patient's current hospital diet: Regular Diet Discharge Diet Recommended Diet: Regular Diet Pending Studies Studies pending at discharge: no Medical Emergencies . Who to Call and When: Medical Emergencies: If at any time you feel your situation is an emergency, please call 911 immediately. . Non-Emergent Contact Non-Emergency issues call your: Primary Care Provider Call Non-Emergent contact if: temperature is above 101, your pain is unusual for you . . "Provider Documentation" section prepared by Mukul Mcdowell. . [employer] Software Engineer Recommendations [employer] Software Engineer Recommendations: After one week transition to your higher dose of Cymbalta prescribed by your outpt psychiatrist, 30 mg daily
[2017-07-27] MEDS ORDERED: ativan PO (12:24)
[2017-07-27] MEDS ORDERED: CTP/1 PO (12:26)
[2017-07-27 14:39] VITALS: BP 149/76; PULSE 49; TEMP 36.8; O2SAT 97
--- NOTE | 2017-07-27 16:00 | Discharge Summary ---
Discharge Summary Date of Service Jul 27, 2017. Discharge Summary Admission Date: Jul 26, 2017 at 13:25 Discharge Date: Jul 27, 2017 Discharge Disposition: Home Principal Diagnosis: anxiety, hypertesion, weight loss, hyponatremia Immunizations: Have You Had Influenza Vaccine: No History of Tetanus Vaccine?: No History of Pneumococcal: No History of Hepatitis B Vaccine: No Consultations: Dr Mcghee from Gastroenterology Dr Woods from Psychiatry Medication Reconciliation New Medications: Clonidine Hcl (Catapres) 0.1 Mg Tab 1 TAB PO DAILY for 30 Days, #30 TAB 2 Refills [ativan] () 0.5 MG PO BID PRN for Anxiety, #20 DOSE Duloxetine HCl (Duloxetine HCl) 20 Mg Cap 20 MG PO QAM, #7 CAP Continued Medications: Metoclopramide (Reglan) 10 Mg Tab 10 MG PO Q6H PRN for Nausea, #6 TAB Ondansetron (Ondansetron HCl) 4 Mg Tab 4-8 MG PO Q6H PRN for Nausea or Vomiting Riboflavin (B-2) Unknown Strength Tab 1 TAB PO DAILY Discontinued Medications: Bupropion HCl (Bupropion HCl Xl) 150 Mg Tabcr 150 MG PO QAM, #30 DOSE 6 Refills Chlordiazepoxide (Librium) 5 Mg Cap 5 MG PO BID Hydralazine HCl (Hydralazine HCl) 10 Mg Tab 5-10 MG PO Q6H PRN for Hypertension TAKE 5-10 MG EVERY 6 HOURS NEEDED FOR SYSTOLIC BLOOD PRESSURE GREATER THAN 160 Hydralazine Hcl (Apresoline) 25 Mg Tab 25 MG PO TID, #90 TAB 6 Refills Hydralazine HCl (Hydralazine HCl) 25 Mg Tab 25 MG PO TID PRN for HYPERTENSION Lamotrigine (Lamictal) 200 Mg Tab 400 MG PO DAILY, TAB Discharge Exam Review of Systems: Constitutional: No fever, No chills Respiratory: No cough, No sputum, No shortness of breath Cardiovascular: No chest pain, No orthopnea, No edema Abdomen: No pain, No nausea, No vomiting Musculoskeletal: No joint pain, No muscle pain Neurologic: No memory loss, No paralysis, No weakness Psychiatric: + depression symptoms, + anxiety Physical Exam: General Appearance: WD/WN, + mild distress Eyes: normal inspection, sclerae normal Neck: supple, no JVD Respiratory/Chest: chest non-tender, lungs clear, normal breath sounds Cardiovascular: regular rate, rhythm, no murmur Abdomen / GI: normal bowel sounds, non tender, soft Neurologic/Psychiatric: alert, oriented x 3 Hospital Course 66-year-old female with multiple somatic complaints including nausea and anorexia with increased anxiety and reportedly weight loss of 10 pounds over the last 3 months Nausea anorexia weight loss and chronically elevated liver transaminase testing. GI medicine and I are suspicious this could be from medication. have stopped welbutrin, post phone colonoscopy to out pt, as pt was unable to tolerate colon prep inpatient hyponatremia, liekly from diarrhea and free water intake, has fluid restriction recommended to limit free water at home Anxiety, Psychiatry has started cymbalta, will increase dose at discharge, is off welbutrin/lamictal Regarding her history of hypertension has been elevated since holding hydralazine, start clonidine Total Time Spent: Greater than 30 minutes This includes examination of the patient, discharge planning, medication reconciliation, and communication with other providers. Discharge Instructions Please refer to the electronic Patient Visit Report (Discharge Instructions) for additional information.
== END 2017-07-27 16:10 | disposition home or self-care (01) | DRG 880 ==
LOC: C.EDB 10:36 → C.MED 16:17 → EDBEDREQ 16:21 → ENRESERV 17:18 → OBSVTOIN 07-26 13:25
PROVIDERS: ADMIT Internal Medicine; ATTEND Internal Medicine
DX: F41.9 Anxiety disorder, unspecified (principal); E87.1 Hypo-osmolality and hyponatremia; R55 Syncope and collapse; R19.7 Diarrhea, unspecified; R93.3 Abnormal findings on diagnostic imaging of other parts of digestive tract; R53.1 Weakness; R42 Dizziness and giddiness; F50.89 Other specified eating disorder; R76.0 Raised antibody titer; R74.0 Nonspecific elevation of levels of transaminase and lactic acid dehydrogenase [LDH]; T43.295A Adverse effect of other antidepressants, initial encounter; I10 Essential (primary) hypertension; D64.9 Anemia, unspecified; F32.9 Major depressive disorder, single episode, unspecified; R63.4 Abnormal weight loss; Z68.20 Body mass index [BMI] 20.0-20.9, adult; Z91.14 Patient's other noncompliance with medication regimen; Z53.8 Procedure and treatment not carried out for other reasons; Z95.0 Presence of cardiac pacemaker; Z79.899 Other long term (current) drug therapy; Z88.0 Allergy status to penicillin; Z88.1 Allergy status to other antibiotic agents; Z88.8 Allergy status to other drugs, medicaments and biological substances; Z91.011 Allergy to milk products; Z91.018 Allergy to other foods

== ENCOUNTER 2017-08-12 13:49 | Emergency (ER) | payer OTHER ==
[~2017-08-12] VITALS: Ht 152.4 cm; Wt 58.2 kg
[~2017-08-12 13:49] MED LIST changes: -APR25 PO; -CHLO5CAP19 PO; +CTP/1 PO; +CYM20 PO; -HYDR-2977 PO; -HYDR-4716 PO; -LAMO200T35 PO; -WLLXL150 PO; +ativan PO
[2017-08-12 13:54] VITALS: TEMP 36.9; Ht 152.4 cm; Wt 58.2 kg
[2017-08-12 14:17] VITALS: O2SAT 96
[2017-08-12] MEDS ORDERED: ATV5X PO (14:25)
[2017-08-12] MEDS ORDERED: CTP1 PO (14:25)
[2017-08-12] MEDS ORDERED: DULO-24 PO (14:25)
[2017-08-12 14:55] LABS: HEMATOCRIT 38.5 % (37-47); HEMOGLOBIN 13.1 g/dL (12.0-16.0); MEAN CORPUSCULAR HEMOGLOBIN 30.6 pg (25-34); RED CELL DISTRIBUTION WIDTH CV 15.1 % (11.5-14.5); RED CELL DISTRIBUTION WIDTH SD 49.9 fL (36.4-46.3); WHITE BLOOD COUNT 6.56 K/uL (4.8-10.8)
[2017-08-12 14:56] LABS: BASO % 0.3 %; BASO ABS # 0.02 K/uL (0-0.2); EOS % 1.1 %; EOS ABS # 0.07 K/uL (0-0.5); IG# 0.03 K/uL (0.00-0.02); LYMPH % 23.2 %; LYMPH ABS # 1.52 K/uL (1.2-3.4); MEAN PLATELET VOLUME 9.8 fL (7.4-10.4); MONO % 10.4 %; MONO ABS # 0.68 K/uL (0.11-0.59); NEUT % 64.5 %; NEUT ABS # 4.24 K/uL (1.4-6.5); PLATELET COUNT 348 K/uL (130-400)
[2017-08-12 14:57] LABS: INR 0.9 (0.9-1.1); PTT PATIENT 25.4 SECONDS (21.0-31.0)
[2017-08-12] MEDS ORDERED: LISINOPRIL 5 MG TAB PO ONE (15:00)
[2017-08-12 15:02] LABS: CALCIUM 9.4 mg/dl (8.5-10.1); CREATININE 0.61 mg/dl (0.60-1.20); POTASSIUM 3.4 mmol/L (3.5-5.1)
[2017-08-12 15:05] LABS: TOTAL PROTEIN 7.8 gm/dl (6.4-8.2)
[2017-08-12 15:19] VITALS: O2SAT 97
--- NOTE | 2017-08-12 15:19 | EMERGENCY ROOM VISIT NOTE ---
History Report prepared by Moe: John Jacobs Under the Supervision of: Dr. Herber Serrano M.D. First contact with patient: 14:37 Chief Complaint: HYPERTENSION Stated Complaint: HYPERTENSION History of Present Illness The patient is a 67 year old white female with a past medical history of abdominal hysterectomy, anxiety, asthma, chest pressure, coronary artery disease , depression disorder, hypertension, hyponatremia, implantation of cardiac pacemaker, syncope and collapse, tonsillectomy who presents to the Emergency Room from the neurologic clinic with concerns over hypertensive blood pressure readings. The patient states that she follows with Dr. Almonte - Neurology for numbness/weakness in her extremities. When she visited with him today she was found to be hypertensive, upon arrival to the ED she is 196/100. She notes that she has a history of hypertension and has been on Hydralazine as needed in the past. She was recently found to have elevated LFTs and had her medications changed. She was changed to Clonidine, which made her feel unwell. She stopped taking Clonidine, and is not currently taking any blood pressure medications. She is not experiencing any chest pain or shortness of breath. 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 A total of ten systems were reviewed and were otherwise negative. Past Medical & Surgical Medical Problems: (1) Abdominal hysterectomy (2) ANXIETY STATE NOS (3) AORTOCORONARY BYPASS (4) ASTHMA, UNSPECIFIED (5) Chest pressure (6) Coronary artery disease (7) DEPRESS DISORDER-UNSPEC (8) HYPERTENSION NOS (9) Hyponatremia (10) Implantation of cardiac pacemaker (11) Syncope and collapse (12) Tonsillectomy (13) Weight loss Family History Cancer FH: CAD (coronary artery disease) FHx: kidney disease Social History Smoking Status: Former Smoker Alcohol Use: none Drug Use: none Marital Status: single Housing Status: lives alone Occupation Status: unemployed Current/Historical Medications Scheduled Clonidine HCl (Clonidine HCl), 0.1 MG PO DAILY Duloxetine HCl (Cymbalta), 20 MG PO DAILY Lisinopril (Zestril), 5 MG PO QD Lorazepam (Lorazepam), 0.5 MG PO BID Riboflavin (B-2), 1 TAB PO DAILY Scheduled PRN Ondansetron (Ondansetron HCl), 4-8 MG PO Q6H PRN for Nausea or Vomiting Allergies Coded Allergies: Soy Allergy (Verified Allergy, Severe, ANAPHYLAXIS, 07/23/17) Metronidazole (Verified Allergy, Unknown, ., 07/11/17) Moxifloxacin (Verified Allergy, Unknown, unnknown, 07/11/17) Penicillins (Verified Allergy, Unknown, 07/11/17) Lactose (Verified Adverse Reaction, Intermediate, GI UPSET, DIARRHEA, INTESTINAL PAIN, 07/23/17) Nitroglycerin (Verified Adverse Reaction, Intermediate, SEVERE HYPOTENSION , 07/23/17) Promethazine (Verified Adverse Reaction, Unknown, hallucinations, 07/23/17) Physical Exam Vital Signs Date Time Temp Pulse Resp B/P (MAP) Pulse Ox O2 Delivery O2 Flow Rate FiO2 08/12/17 16:28 08/12/17 16:03 62 17 179/95 08/12/17 15:19 68 16 194/126 97 Room Air 08/12/17 14:17 96 Room Air 08/12/17 14:07 70 08/12/17 13:54 36.9 71 18 187/119 98 Room Air Physical Exam GENERAL: Awake, alert, well-appearing, NAD HENT: Normocephalic, atraumatic. EYES: Normal conjunctiva. Sclera non-icteric. NECK: Supple. No nuchal rigidity. FROM. RESPIRATORY: CTAB, no rhonchi, wheezing, crackles CARDIAC: RRR, no MRG ABDOMEN: Soft, NTND, BS+ MSK: No chest wall TTP, no LE edema NEURO: GCS 15, CN 2-12 intact, moves all 4s on command SKIN: No rash or jaundice noted. Medical Decision & Procedures Laboratory Results 08/12/17 14:15 Red Blood Count 4.28, Mean Corpuscular Volume 90.0, Mean Corpuscular Hemoglobin 30.6, Mean Corpuscular Hemoglobin Concent 34.0, Mean Platelet Volume 9.8, Neutrophils (%) (Auto) 64.5, Lymphocytes (%) (Auto) 23.2, Monocytes (%) (Auto) 10.4, Eosinophils (%) (Auto) 1.1, Basophils (%) (Auto) 0.3, Neutrophils # (Auto ) 4.24, Lymphocytes # (Auto) 1.52, Monocytes # (Auto) 0.68, Eosinophils # (Auto ) 0.07, Basophils # (Auto) 0.02 08/12/17 14:15 Test 08/12/17 14:00 08/12/17 14:15 Urine Color YELLOW Urine Appearance CLEAR (CLEAR) Urine pH 7.5 (4.5-7.5) Urine Specific [place] 1.010 (1.000-1.030) Urine Protein NEG (NEG) Urine Glucose (UA) NEG (NEG) Urine Ketones NEG (NEG) Urine Occult Blood NEG (NEG) Urine Nitrite NEG (NEG) Urine Bilirubin NEG (NEG) Urine Urobilinogen NEG (NEG) Urine Leukocyte Esterase NEG (NEG) Urine WBC (Auto) 0 /hpf (0-5) Urine RBC (Auto) 0-4 /hpf (0-4) Urine Hyaline Casts (Auto) 0 /lpf (0-5) Urine Epithelial Cells (Auto) 0-5 /lpf (0-5) Urine Bacteria (Auto) NEG (NEG) White Blood Count 6.56 K/uL (4.8-10.8) Red Blood Count 4.28 M/uL (4.2-5.4) Hemoglobin 13.1 g/dL (12.0-16.0) Hematocrit 38.5 % (37-47) Mean Corpuscular Volume 90.0 fL (80-100) Mean Corpuscular Hemoglobin 30.6 pg (25-34) Mean Corpuscular Hemoglobin Concent 34.0 g/dl (32-36) Platelet Count 348 K/uL (130-400) Mean Platelet Volume 9.8 fL (7.4-10.4) Neutrophils (%) (Auto) 64.5 % Lymphocytes (%) (Auto) 23.2 % Monocytes (%) (Auto) 10.4 % Eosinophils (%) (Auto) 1.1 % Basophils (%) (Auto) 0.3 % Neutrophils # (Auto) 4.24 K/uL (1.4-6.5) Lymphocytes # (Auto) 1.52 K/uL (1.2-3.4) Monocytes # (Auto) 0.68 K/uL (0.11-0.59) Eosinophils # (Auto) 0.07 K/uL (0-0.5) Basophils # (Auto) 0.02 K/uL (0-0.2) RDW Standard Deviation 49.9 fL (36.4-46.3) RDW Coefficient of Variation 15.1 % (11.5-14.5) Immature Granulocyte % (Auto) 0.5 % Immature Granulocyte # (Auto) 0.03 K/uL (0.00-0.02) Prothrombin Time 9.6 SECONDS (9.0-12.0) Prothromb Time International Ratio 0.9 (0.9-1.1) Activated Partial Thromboplast Time 25.4 SECONDS (21.0-31.0) Partial Thromboplastin Ratio 1.0 Anion Gap 9.0 mmol/L (3-11) Est Creatinine Clear Calc Drug Dose 72.4 ml/min Estimated GFR () 109.5 Estimated GFR (Non- 94.5 BUN/Creatinine Ratio 23.2 (10-20) Calcium Level 9.4 mg/dl (8.5-10.1) Total Bilirubin 0.8 mg/dl (0.2-1) Aspartate Amino Transf (AST/SGOT) 69 U/L (15-37) Alanine Aminotransferase (ALT/SGPT) 134 U/L (12-78) Alkaline Phosphatase 777 U/L (45-117) Total Protein 7.8 gm/dl (6.4-8.2) Albumin 4.0 gm/dl (3.4-5.0) Globulin 3.8 gm/dl (2.5-4.0) Albumin/Globulin Ratio 1.0 (0.9-2) Laboratory results reviewed by me Medications Administered Medications (Trade) Dose Ordered Sig/Trip Route Start Time Stop Time Status Last Admin Dose Admin Lisinopril (Zestril Tab) 5 mg NOW ONCE PO 08/12/17 15:00 08/12/17 15:01 DC 08/12/17 15:18 5 MG ECG Per My Interpretation Indication: other (Hypertension) Rate (beats per minute): 64 Rhythm: normal sinus Findings: T-wave inversion (AvL), other (Normal axis, normal intervals, ) ED Course 1443: The patient was evaluated in room A2. A complete history and physical exam was performed. 1617: I reevaluated the patient. Discussed results and discharge instructions: She verbalized understanding and agreement. The patient is ready for discharge. Medical Decision The patient is a 67 year old white female with a past medical history of abdominal hysterectomy, anxiety, asthma, chest pressure, coronary artery disease , depression disorder, hypertension, hyponatremia, implantation of cardiac pacemaker, syncope and collapse, tonsillectomy who presents to the Emergency Room from the neurologic clinic with concerns over hypertensive blood pressure readings. Differential diagnosis: Etiologies such as benign hypertension, hypertensive emergency, cardiovascular pathology, pheochromocytoma, electrolyte abnormality, renal disease, endorgan damage, as well as others were entertained. Patient was seen and evaluated the bedside. Patient does have multiple medical comorbidities and was recently being seen in the neurology office for some ongoing neuro symptoms which include some tingling and numbness. The patient was noted to have an elevated blood pressure and so was referred here for further evaluation and treatment. Patient denies any headaches or neuro symptoms that are atypical from what she was already experiencing and for what she was being seen at the neurology office for. Patient has a nonfocal neurologic exam. Patient states that she does not have a numbness when she is examined at the bedside. Patient states that she has had some issues I guess with being able to use her glasses but does not have any acute visual deficits. The patient does relate that she was started on clonidine which she took for several days but then stopped taking it because she felt like she was having some symptomatic which she describes as almost tremors. Patient did have blood work that was completed. Patient has normal kidney function. Patient does have elevated LFTs and alk phos but this is improved from priors. She was taken off hydralazine which is thought to be a possible culprit. Patient was given a first dose of lisinopril. Given that the patient has asymptomatic hypertension the patient was referred to her PCP the patient was given a prescription for lisinopril after being given a first dose here. Patient was given strict follow-up, discharge, and return precautions. All questions were answered. Patient was deemed suitable for outpatient follow-up at this time. Patient agreed with the plan of care and was safely discharged home. Blood Pressure Screening Patient's blood pressure: Elevated blood pressure Blood pressure disposition: Referred to PCP Impression Primary Impression: Hypertension Additional Impression: Hypokalemia Scribe Attestation The scribe's documentation has been prepared under my direction and personally reviewed by me in its entirety. I confirm that the note above accurately reflects all work, treatment, procedures, and medical decision making performed by me. Departure Information Dispostion Home / Self-Care Prescriptions Lisinopril (Zestril) 5 Mg Tab 5 MG PO QD for 30 Days, #30 TAB Prov: Herber Serrano M.D. 08/12/17 Referrals RV. Winters MD (PCP) Patient Instructions Hypertension Control, Hypertension Dc, My [facility] Additional Instructions Please return to the emergency department if you have worsening or recurrent symptoms not amenable to at-home treatment. Please call for a follow-up appointment with her primary care physician. Please take your medications as prescribed. If you have other concerns and/or complaints please feel free to also call your primary care physician's office or return the ED for further evaluation, management, and treatment. Please keep taking your lisinopril. Take your medications as prescribed. You have been examined and treated today on an emergency basis only. This is not a substitute for, or an effort to provide, complete comprehensive medical care. It is impossible to recognize and treat all injuries or illnesses in a single emergency department visit. It is therefore important that you follow up closely with [facility], your PCP, and/or your specialist(s). Call as soon as possible for an appointment. Thank you for your time and consideration. I look forward to speaking with you again soon. Please don't hesitate to call us if you have any questions. Problem Qualifiers Primary Impression: Hypertension Hypertension type: unspecified Qualified Codes: I10 - Essential (primary) hypertension
[2017-08-12] MEDS ORDERED: LISI-729 PO (16:01)
[2017-08-12 16:03] VITALS: BP 179/95; PULSE 62
== END 2017-08-12 16:29 | disposition home or self-care (01) ==
LOC: EDBD 13:49 → C.EDA 13:50
DX: I10 Essential (primary) hypertension (principal); E87.6 Hypokalemia; Z95.0 Presence of cardiac pacemaker; F41.9 Anxiety disorder, unspecified

== ENCOUNTER → 2017-08-16 | Outpatient (CLI) | payer OTHER ==
[~2017-08-16] MED LIST changes: +ATV5X PO; -CTP/1 PO; +CTP1 PO; -CYM20 PO; +DULO-24 PO; +LISI-729 PO; -METO-157 PO; -ativan PO
[2017-08-16 17:06] LABS: ALBUMIN 3.5 gm/dl (3.4-5.0); BLOOD UREA NITROGEN 11 mg/dl (7-18); CALCIUM 8.8 mg/dl (8.5-10.1); CARBON DIOXIDE 27 mmol/L (21-32); CREATININE 0.53 mg/dl (0.60-1.20); GLUCOSE 89 mg/dl (70-99); POTASSIUM 3.5 mmol/L (3.5-5.1); SODIUM 130 mmol/L (136-145)
[2017-08-16 17:09] LABS: ALKALINE PHOSPHATASE 631 U/L (45-117); ALT/SGPT 108 U/L (12-78); AST/SGOT 75 U/L (15-37); TOTAL PROTEIN 6.8 gm/dl (6.4-8.2)
[2017-08-22 17:30] LABS: VITAMIN B6** TC 926 26.3 ng/mL (2.1-21.7)
== END | disposition home or self-care (01) ==
LOC: C.LAB1850 15:35
PROVIDERS: ATTEND Psychiatry & Neurology Neurology
DX: R79.89 Other specified abnormal findings of blood chemistry (principal); R25.2 Cramp and spasm; R20.2 Paresthesia of skin; R51 Headache

== ENCOUNTER → 2017-09-09 | Outpatient (CLI) | payer OTHER ==
[2017-09-09 12:20] LABS: SODIUM RANDOM URINE 38 mEq/L
[2017-09-09 12:33] LABS: OSMOLALITY,URINE 437 mOms/kg (500-800)
[2017-09-09 12:35] LABS: BLOOD UREA NITROGEN 14 mg/dl (7-18); CALCIUM 9.5 mg/dl (8.5-10.1); CARBON DIOXIDE 29 mmol/L (21-32); CREATININE 0.56 mg/dl (0.60-1.20); GLUCOSE 85 mg/dl (70-99); PHOSPHORUS 3.8 mg/dl (2.5-4.9); POTASSIUM 3.9 mmol/L (3.5-5.1); SODIUM 128 mmol/L (136-145)
== END | disposition home or self-care (01) ==
LOC: C.LAB1850 10:50
PROVIDERS: ATTEND Internal Medicine Nephrology
DX: E87.1 Hypo-osmolality and hyponatremia (principal); D35.00 Benign neoplasm of unspecified adrenal gland

== ENCOUNTER → 2017-09-16 | Outpatient (CLI) | payer OTHER ==
[~2017-09-16] MED LIST changes: -LISI-729 PO
== END | disposition home or self-care (01) ==
LOC: C.LABSPEC 07:15
PROVIDERS: ATTEND Internal Medicine
DX: D35.00 Benign neoplasm of unspecified adrenal gland (principal)

== ENCOUNTER 2018-09-17 13:59 | Inpatient (IN) ==
--- OUTSIDE RECORDS SUMMARY | 2018-09-17 14:03 | External Medical Summary | Continuity of Care Document ---
:1950 Author Name Yong Ramsey, Provider Address Unavailable Unavailable , Care Team Providers Name Role Phone Unavailable Unavailable Unavailable Severo Ferrara PA-C Unavailable [email or web address] Ramsey Unavailable [email or web address] KALEB HERRERA M.D., V Unavailable Unavailab le BULMARO, A Unavailable Unavailable Unavailable Unavailable Unavailable Problems Vitreous Floaters In Both Eyes (379.24) Difficulty breathing (786.09) (R06.89) Fluctuating blood pressure (796.4) (I99.8) Depression (311) (F32.9) Paresthesia (782.0) (R20.2) Abnormal brain scan (794.09) (R94.02) Double vision (368.2) (H53.2) Memory loss (780.93) (R41.3) Hypertension (401.9) (I10) Takotsubo syndrome (429.83) (I51.81) Cardiac pacemaker in situ (V45.01) (Z95.0) Neck discomfort (723.1) (M54.2) History of syncope (V15.89) (Z87.898) St atus: Resolved Dizziness, nonspecific (780.4) (R42) Vitamin D deficiency (268.9) (E55.9) Neoplasm of uncertain behavior of skin (238.2) (D48.5) Facial skin lesion (709.9) (L98.9) Abnormal finding on CT scan (793.99) (R93.89) Palpitations (785.1) (R00.2) Neck discomfort (723.1) (M54.2) Visual changes (368.9) (H53.9) Muscle cramping (729.82) (R25.2) Hyponatremia (276.1) (E87.1) Low serum sodium (790.6) (R79.89) Anxiety disorder (300.00) (F41.9) Headache (784.0) (R51) ALESSANDRA positive (795.79) (R76.8) Nausea (787.02) (R11.0) Acid reflux disease (530.81) (K21.9) Abnormal weight loss (783.21) (R63.4) Hematuria, microscopic (599.72) (R31.29) Herpes zoster (053.9) (B02.9) Flu vaccine need (V04.81) (Z23) History of Benzodiazepine dependence (304.10) (F13.20) Status: Resolved History of Stuttering (315.35) (F80.81) Status: Resolved Ocular migraine (346.80) (G43.109) Migraine (346.90) (G43.909) Postconcussion syndrome (310.2) (F07.81) Arthralgia of multiple joints (719.49) (M25.50) Insomnia (780.52) (G47.00) Basilar migraine (346.00) (G43.109) Vertigo of central origin (386.2) (H81.49) Chronic daily headache (784.0) (R51) Posterior vitreous detachment (379.21) (H43.819) Change in bowel habits (787.99) (R19.4) Laryngopharyngeal reflux (LPR) (478.79) (K21.9) Voice disturbance (784.40) (R49.9) 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) Dyslipidemia (272.4) (E78.5) Post-traumatic stress disorder (309.81) (F43.10) Lichen planus (697.0) (L43.9) Skin hypopigmentation (709.00) (L81.9) Cataract (366.9) (H26.9) ANTUNEZ (dyspnea on exertion) (786.09) (R06.09) Labile hypertension (401.9) (R09.89) Cough (786.2) (R05) Adrenal adenoma (227.0) (D35.00) Abnormal liver enzymes (790.5) (R74.8) Unexplained night sweats (780.8) (R61) Allergies and Adverse Reactions Avelox ABC Pack TABS (Allergy) Status: D enied cloNIDine HCl TABS (Allergy) Reaction: S leeplessness Flagyl TABS (Allergy) nitroglycerin (Allergy) Penicillins (Allergy) Phenergan SOLN (Allergy) Reglan TABS (Allergy) Senokot TABS (Allergy) Soy TABS (Allergy) Transderm-Scop (1.5 MG) PT72 (Allergy) R eaction: Anaphylaxis, Shortness of breath, Chest pain, Dry mout h, Dizziness Milk (Allergy) Medications Cymbalta 60 MG Oral Capsule Delayed Release Particles; TAKE 1 CAPSULE Daily , M.D. Refills: 0 Aspirin 81 MG TABS; TAKE 1 TABLET DAILY. , M.D. Refills: 0 Carvedilol 6.25 MG Oral Tablet; Take 1.5 tablets by mo ut twice a day. ROBERTO Ferrara Start: 13-Aug-2018 Quantity: 270 Refills: 1 Co Q 10 100 MG Oral Capsule; TAKE 1 CAPSULE DAILY. DO Nia Smith Start: 16-Sep-2017 Quantity: 30 Refills: 0 LORazepam 1 MG Oral Tablet; TAKE 1 TABLET EVERY 12 VIRGILIO RS DAILY. Blake Herrera M.D. Start: 29-Jul-2017 Refills: 0 Ralitsa Ondansetron HCl - 4 MG Oral Tablet; TAKE 1 TO 2 TABLETS BY MOUTH EVERY 6 HOURS NEEDED FOR NAUSEA ROBERTO Ferrara Start: 09-Feb-2014 Quantity: 24 Refills: 5 Riboflavin 400 MG Oral Tablet; Take 1 tablet daily DO Nia Smith Start: 17-May-2015 Quantity: 90 Refills: 3 Procedures History of Pacemaker Permanent Placement Status: Completed History of Tonsillectomy Status: Complet ed History of Oophorectomy Status: Complete d History of Shoulder Surgery Status: Comp leted Immunizations Influenza On: 24-Apr-2012 11:20 Lot #: [id number], [employer] Fluzone High-Dose Intramuscular Suspension On: 30-May-2017 1 3:26 Lot #: [id number], [employer] Influenza Comments:denied 04/10 Family History Sister Family history of hypertension (V17.49) (Z82.49) Status: Act yazmin Father Family history of hypertension (V17.49) (Z82.49) Status: Act yazmin Family history of cardiac disorder (V17.49) (Z82.49) Status: Active Mother Family history of hypertension (V17.49) (Z82.49) Status: Act yazmin Family history of emphysema (V17.6) (Z82.5) Status: Active Family history of Diverticulitis (562.11) (K57.92) Status: A ctive Grandfather Family history of liver cancer (V16.0) (Z80.0) Status: Activ e aunt Family history of lung cancer (V16.1) (Z80.1) Status: Active Family history of throat cancer (V16.0) (Z80.0) Status: Acti ve Social History - Smoking Status Former smoker Plan of Treatment Planned Observations Planned Goals not documented Results No Known Results Results not documented Vital Signs 09-Sep-2018 13:55 Height 59 in BMI Calculated 25.85 kg/m2 Weight 128 lb BSA Calculated 1.53 m2 Encounters Appointment; Pulmonary, Funct Testing 09-Sep-2018 14:00 Encounter Diagnosis: Problem not documented Appointment; Echo/Stress, Echo/Stress 22-Aug-2018 15:15 Encounter Diagnosis: Problem not documented Appointment; Severo Ferrara PA-C 14-Aug-2018 14:30 Encounter Diagnosis: Problem not documented Appointment; Tab Sykes M.D. 21-May-2018 11:15 Encounter Diagnosis: Problem not documented Appointment; Tab Sykes M.D. 09-Apr-2018 10:15 Encounter Diagnosis: Problem not documented Appointment; Jassi Winters M.D. 12:40 Encounter Diagnosis: Problem not documented Appointment; Berenice Parham III, M.D. 30-Oct-2017 13:00 Encounter Diagnosis: Problem not documented Appointment; Tab Sykes M.D. 16-Oct-2017 11:30 Encounter Diagnosis: Problem not documented Appointment; Evan Rapp M.D. 15-Oct-2017 9:30 Encounter Diagnosis: Problem not documented Appointment; Jenn Oakes PA-C 10-Oct-2017 16:00 Encounter Diagnosis: Problem not documented Appointment; [facility], Nursing [facility] 10-Oct-2017 13:45 Encounter Diagnosis: Problem not documented Appointment; Zulema Mariscal M.D. 02-Oct-2017 13:00 Encounter Diagnosis: Problem not documented Appointment; Zulema Mariscal M.D. 01-Oct-2017 10:00 Encounter Diagnosis: Problem not documented Appointment; Tab Saleh M.D. 27-Sep-2017 12:00 Encounter Diagnosis: Problem not documented Appointment; Severo Ferrara PA-C 23-Sep-2017 13:00 Encounter Diagnosis: Problem not documented Appointment; Jassi Winters M.D. 15:20 Encounter Diagnosis: Problem not documented Appointment; Nia Smith DO 16-Sep-2017 11:20 Encounter Diagnosis: Problem not documented Appointment; Valery Foote M.D. 20-Aug-2017 14:00 Encounter Diagnosis: Problem not documented Appointment; Jassi Winters M.D. 8 16:20 Encounter Diagnosis: Problem not documented Appointment; Nia Smith DO 12-Aug-2017 11:40 Encounter Diagnosis: Problem not documented Appointment; Jassi Winters M.D. 8 15:00 Encounter Diagnosis: Problem not documented Appointment; Jassi Winters M.D. 8 11:40 Encounter Diagnosis: Problem not documented Appointment; Venus Lujan PA-C 03-Jul-2017 15:30 Encounter Diagnosis: Problem not documented Appointment; Venus Lujan PA-C 25-Jun-2017 15:45 Encounter Diagnosis: Problem not documented Appointment; Freddy Wilhelm M.D. 05-Jun-2017 19:00 Encounter Diagnosis: Problem not documented Appointment; Jassi Winters M.D. 8 12:40 Encounter Diagnosis: Problem not documented Appointment; Jassi Winters M.D. 12-Apr-2017 15:20 Encounter Diagnosis: Problem not documented Appointment; Jassi Winters M.D. 7 10:00 Encounter Diagnosis: Problem not documented Appointment; Nia Smith DO 12-Mar-2017 11:40 Encounter Diagnosis: Problem not documented Appointment; Nia Smith DO 20-Feb-2017 11:00 Encounter Diagnosis: Problem not documented Appointment; Jassi Winters M.D. 11:40 Encounter Diagnosis: Problem not documented Appointment; Tab Sykes M.D. 22-Jan-2017 15:30 Encounter Diagnosis: Problem not documented Appointment; Jassi Winters M.D. 09-Jan-2017 14:20 Encounter Diagnosis: Problem not documented Appointment; Nia Smith DO 20-Dec-2016 11:00 Encounter Diagnosis: Problem not documented Appointment; Tab Sykes M.D. 12-Nov-2016 16:00 Encounter Diagnosis: Problem not documented Appointment; Jassi Winters M.D. 07-Nov-2016 12:40 Encounter Diagnosis: Problem not documented Appointment; Nia Smith DO 24-Oct-2016 11:40 Encounter Diagnosis: Problem not documented Appointment; Casey Turner M.D. 10-Oct-2016 15:00 Encounter Diagnosis: Problem not documented Appointment; Jassi Winters M.D. 08-Oct-2016 15:00 Encounter Diagnosis: Problem not documented Appointment; Nia Smith DO 04-Oct-2016 11:40 Encounter Diagnosis: Problem not documented Appointment; Tab Sykes M.D. 25-Sep-2016 10:45 Encounter Diagnosis: Problem not documented
[2018-09-17] MEDS ORDERED: OXYMETAZOLINE 0.05% 30 ML BTL ONE (14:06)
[2018-09-17] MEDS ORDERED: ONDANSETRON 4 MG OD TAB ONE (14:45)
[2018-09-17] MEDS ORDERED: ACETAMINOPHEN 500 MG TAB PO STA (14:55)
[2018-09-17] MEDS ORDERED: AMOXICILLIN/CLAVULANATE 875 MG TAB PO ONE (15:16)
--- NOTE | 2018-09-17 15:22 | Emergency Department Note ---
History of Present Illness General Chief complaint: Nose Bleed (Minor) Time Seen by Provider: 09/17/18 14:29 History of Present Illness Maximum Pain Intensity: 0 This 68-year-old female presents the ER via EMS with chief complaint of nosebleed. The patient states proximally 1 hour ago she started bleeding from both nostrils. The patient is not on any blood thinners but takes a 81 mg a baby aspirin daily. The patient states that she had a similar nosebleed 1 week ago but it stopped within 45 minutes at home. The patient does admit when she was younger she had multiple nosebleeds. The patient denies any other bleeding disorders. She is now complaining of a headache. Home Medications Home Medications Medication Instructions Recorded Confirmed Type carvedilol 6.25 mg PO BID 09/17/18 09/17/18 History duloxetine 60 mg PO DAILY 09/17/18 09/17/18 History lorazepam 1 mg PO BID 09/17/18 09/17/18 History ondansetron HCl 4 mg PO DIRECTED 09/17/18 09/17/18 History Allergies Allergy/AdvReac Type Severity Reaction Status Date / Time soy Allergy Severe ANAPHYLAXIS Verified 09/17/18 14:19 metronidazole Allergy Unknown . Verified 09/17/18 14:19 moxifloxacin Allergy Unknown unnknown Verified 09/17/18 14:19 Penicillins Allergy Unknown nauseated Verified 09/17/18 14:19 lactose AdvReac Intermediate GI UPSET, Verified 09/17/18 14:19 DIARRHEA, INTESTINAL PAIN nitroglycerin AdvReac Intermediate SEVERE Verified 09/17/18 14:19 HYPOTENSION promethazine AdvReac Unknown hallucinati Verified 09/17/18 14:19 ons Past Med/Surg History Medical History Hypertension (Acute) Social History Feels Safe at Home: Yes Smoking Status: Former smoker Review of Systems A total of 10 systems reviewed and were otherwise negative Physical Exam Vital Signs Vital Signs - 24 hr 09/17/18 14:09 09/17/18 15:28 09/17/18 15:30 Temperature 36.6 C Temperature Source Oral Sepsis Recent Fever Within 48 Hours No Sepsis New/Unexplained Change in Mental Status No Sepsis Action Taken by Nursing No Action Required Pulse Rate 59 L Pulse Rate [Finger] 80 80 Respiratory Rate 18 17 Blood Pressure 175/89 H Blood Pressure [Right Arm] 205/110 H 201/110 H Blood Pressure Mean 117 Blood Pressure Mean [Right Arm] 141 140 Pulse Oximetry 94 99 98 Oxygen Delivery Method Room Air Room Air Room Air GENERAL: 68-year-old white female is sitting on the stretcher with her head bent forward with a nasal clamp in place. MENTAL Status: Alert and oriented x3. The patient appears very anxious. NOSE: There is moderate active bleeding from both nostrils. Unable to visualize the nasal passages. NECK: Supple, no lymphadenopathy noted LUNGS: Clear to auscultation without wheezes rales or rhonchi. CARDIAC: Regular rate and rhythm without murmur. ABDOMEN: Positive bowel sounds all 4 quadrants. Soft nontender to palpation without organomegaly or masses. LOWER EXTREMITIES: No cyanosis or edema noted. Course Administered Medications Discontinued Medications Acetaminophen (Tylenol) 1,000 mg PO NOW STA Stop: 09/17/18 14:56 Last Admin: 09/17/18 15:17 Dose: 1,000 mg Documented by: [id number] Amoxicillin/Clavulanate Potassium (Augmentin 875mg) 1 tab PO NOW ONE Stop: 09/17/18 15:17 Last Admin: 09/17/18 15:33 Dose: Not Given Documented by: [id number] Metoprolol Tartrate (Lopressor) 50 mg PO NOW STA Stop: 09/17/18 15:34 Last Admin: 09/17/18 15:49 Dose: 50 mg Documented by: [id number] Ondansetron HCl (Zofran Odt) Confirm Administered Dose 4 mg .ROUTE .STK-MED ONE Stop: 09/17/18 14:46 Last Admin: 09/17/18 14:48 Dose: 4 mg Documented by: [id number] Oxymetazoline HCl (Afrin 0.05%) Confirm Administered Dose 75 sprays .ROUTE .STK- MED ONE Stop: 09/17/18 14:07 Last Admin: 09/17/18 14:12 Dose: 75 sprays Documented by: [id number] Medical Decision Making Differential Diagnosis Epistaxis Medical Records Attestation: I reviewed the patient's medical records. Home Medications Current Medication List: was personally reviewed by me Blood Pressure Blood Pressure Findings: Elevated blood pressure Blood Pressure Disposition: Referred to patients primary care provider MDM Narrative Prior to me evaluating the patient Afrin was placed in both nostrils and a nasal clamp applied. The patient was evaluated. Anterior Rhino Rocket's were placed into both nostrils. The patient was given Tylenol 1 g p.o. for headache. She was also given Zofran 4 mg ODT for associated nausea. The patient's blood pressure was reevaluated was 205/110. The patient was given Lopressor 50 mg or ally. The patient's blood pressure continued to be elevated and she continued to lose blood around the left nasal packing. Her most recent blood pressures 201/110. The patient was independently evaluated by Dr. Serrano who agrees with treatment plan. I contacted Dr. Song via telephone and he stated that he did not feel he need to come evaluate the patient but would see her in his office on Saturday. I discussed with the patient that I feel that she should be admitted for control of her hypertension as well as for the nosebleed. I gave the patient oxycodone 5 mg p.o. for headache. IV access was obtained. CBC and differential, renal profile, coags were ordered. The hospitalist was consulted. The patient was in agreement to be admitted to the hospital for further evaluation and treatment. Impression & Plan Severe epistaxis, Hypertensive urgency Discharge Plan Visit Data Chief Complaint: Nose Bleed (Minor) ED Provider: Herber Serrano ED Midlevel Provider: Elsa Espinoza Discharge Problem: Severe epistaxis, Hypertensive urgency Patient Disposition: Being Evaluated by Hospitalist Condition: Good Forms Stand Alone Forms: My [facility] Prescriptions Prescriptions: No Action carvedilol 6.25 mg tablet 6.25 mg PO BID RF: 0 ondansetron HCl 4 mg tablet 4 mg PO DIRECTED RF: 0 lorazepam 0.5 mg tablet 1 mg PO BID RF: 0 duloxetine 60 mg capsule,delayed release(DR/EC) 60 mg PO DAILY RF: 0 Referrals Referrals: Jassi Walker MD [Primary Care Provider] -
[2018-09-17] MEDS ORDERED: METOPROLOL TARTRATE 50 MG TAB PO STA (15:33)
[2018-09-17] MEDS: OXYCODONE HCL IR 5 MG TAB (IMMEDIATE RELEASE) PO STA ×2 (16:45→16:54)
[2018-09-17] MEDS ORDERED: ONDANSETRON 4 MG OD TAB PO STA (16:48)
[2018-09-17 17:04] LABS: Basophils # (auto) 0.01 K/uL (0-0.2); Basophils % (auto) 0.2 %; Eosinophils # (auto) 0.29 K/uL (0-0.5); Eosinophils % (auto) 4.5 %; Hematocrit (blood only) 39.4 % (37-47); Hemoglobin 13.7 g/dL (12.0-16.0); Immature Granulocytes # (auto) 0.03 K/uL (0.00-0.02); Immature Granulocytes % (auto) 0.5 %; Mean Corpuscular Hgb Conc 34.8 g/dL (32-36); Mean Platelet Volume 8.9 fL (7.4-10.4); Monocytes # (auto) 0.66 K/uL (0.11-0.59); Monocytes % (auto) 10.2 %; Neutrophils # (auto) 4.39 K/uL (1.4-6.5); Neutrophils % (auto) 67.6 %; Platelet Count 315 K/uL (130-400); RDW Coefficient of Variation 13.5 % (11.5-14.5); RDW Standard Deviation 44.7 fL (36.4-46.3); Red Blood Count 4.38 M/uL (4.2-5.4); White Blood Count 6.48 K/uL (4.8-10.8)
[2018-09-17 17:17] LABS: Prothrombin Time 10.2 Seconds (9.0-12.0)
[2018-09-17 17:21] LABS: Albumin Level 3.8 gm/dl (3.4-5.0); BUN Creatinine Ratio 22.4 (10-20); Calcium 9.3 mg/dl (8.5-10.1); Creatinine Clr Calc Pharmacy 72.5 ml/min; Est GFR (African American) 108.7; Est GFR (Non-African American) 93.8; Potassium 3.9 mmol/L (3.5-5.1)
[2018-09-17 17:24] LABS: Bilirubin,Total 0.7 mg/dl (0.2-1); Total Protein 7.8 gm/dl (6.4-8.2)
[2018-09-17] MEDS ORDERED: LIDOCAINE/EPINEPHRINE 1% 20 ML VIAL ONE (17:36)
[2018-09-17] MEDS ORDERED: LABETALOL HCL IV 5 MG/ML 20ML IV STA (17:48)
--- NOTE | 2018-09-17 17:49 | History & Physical Report ---
Date of Service September 17, 2018 Assessment & Plan (1) Hypertensive urgency: Blood pressures of 205/110 on admission with severe epistaxis. History of labile hypertension with previous work-up unrevealing for secondary causes. In the past she had better control with p.o. hydralazine but this was discontinued after she had a positive ALESSANDRA which was thought to be secondary to the hydralazine She reports she did not have good control with previous clonidine and had some sort of issue with losartan in the past as well. She has chronic hyponatremia and a diuretic might not be a good idea in her case. -Admit to medical floor with telemetry -Increase her carvedilol to 12.5 mg p.o. twice daily -Give labetalol 20 mg IV x1 now -IV hydralazine 10 mg IV every 8 hours as needed systolic blood pressure greater than 180 or diastolic blood pressure creatinine 110 as ordered -Follow blood pressures -Consult her allergy nurse for further recommendations (2) Severe epistaxis: Now stabilized after placement of Rhino Rocket's. After I saw her, the ER physician went back in and removed her Rhino Rocket's and sprayed aerosolized lidocaine with epinephrine which seemed to help CBC with hemoglobin stable from previous indicating no significant blood loss -Follow with outpatient ENT on Saturday -Caution with using Afrin in the future given significant high blood pressure -Packing as needed -Holding baby aspirin daily (3) Hypertension: Labile as above -Coreg, IV hydralazine (4) Elevated LFTs: Significantly elevated LFTs specifically AST, ALT, and alkaline phosphatas e in the past. GI has seen her and has done an extensive work-up. Thought was if she stopped her Wellbutrin and hydralazine and had no improvement, the next step would be a liver biopsy. It does not appear she is followed up with GI since that time. -LFTs here are stable to slightly improved from 1 year ago, nonetheless alkaline phosphatase remains in the 400s -No need to repeat previous extensive work-up -Recommend follow-up with GI as an outpatient for possible liver biopsy (5) Hyperlipidemia: -Not currently on any medication for this (6) Migraine aura without headache: Has not been an issue for her for a long time Tylenol was given today for a headache that was likely secondary to high blood pressure and it is now resolved (7) Hyponatremia: Chronic for many years as per patient, has been mild in the past, sodium is 131 here -Possibly SIADH secondary to psychiatric medications? There is also question in the previous of polydipsia. -Follow BMP (8) Broken heart syndrome: With a history of such several years ago but most recent echocardiogram as an outpatient was normal in 08/2018 (9) History of CVA (cerebrovascular accident) without residual deficits: Has a history of lacunar infarct seen on imaging and reported to her by her neurologist at [facility] -Holding aspirin for epistaxis as above -Likely secondary to severely uncontrolled blood pressure-working on control of this as above No current focal neurological signs or symptoms. (10) Anxiety and depression: Stable -Continue home Cymbalta and lorazepam (11) History of permanent cardiac pacemaker placement: For previous sick sinus syndrome and syncope -Follows routinely with cardiology (12) Adrenal adenoma: 2 cm and stable for many years, has followed with urology in the past Plasma metanephrines have been in the upper limits of normal in the past given labile blood pressure but was supposed to follow-up with urology 6 months from the last and it appears she did not -Recommend follow-up outpatient with urology (13) History of syncope: History of many years of neurocardiogenic syncope and dizziness which is now resolved with stopping Wellbutrin and after pacemaker placement -No current issues (14) DVT prophylaxis: SCDs, no chemical means due to severe epistaxis Disposition-admit to medical floor with telemetry Full code History of Present Illness Chief Complaint: Nosebleed, high blood pressure Primary Care Provider: Jassi Walker MD This patient is a 68-year-old female with a history of labile hypertension, anxiety disorder, lacunar CVAs, neurocardiogenic syncope, HTN, permanent pacemaker placement for sick sinus syndrome, migraines, hyperlipidemia, postconcussive syndrome, elevated LFTs, hyponatremia, and Takotsubo cardiomyopathy, who presents to the ER with a nosebleed that she could not get to stop. Blood was apparently gushing out of both nostrils at home and she started having a headache and felt a little bit lightheaded. In the ER, she had Afrin nasal spray applied and nasal clamp applied and later Rhino Rocket's inserted into both nasal passages. Her blood pressure was found to be severely elevated at 205/110. She denied chest pain or shortness of breath, no abdominal pain but did have some nausea thought to be secondary to blood dripping down the back of her throat. She did not vomit. She denied numbness or tingling or focal weakness. No visual changes. Review of her outpatient record and in reviewing with her history, reports that she has had labile hypertension for many years. She has had a work-up for pheochromocytoma which was negative, as well as renin and aldosterone levels which were normal. ENT was contacted by the ER provider and recommended outpatient follow-up for her epistaxis. She was given a one-time dose of Lopressor p.o. 50 mg in the ER with no improvement in her blood pressure. She will be admitted for hypertensive urgency. Allergies Allergy/AdvReac Type Severity Reaction Status Date / Time soy Allergy Severe ANAPHYLAXIS Verified 09/17/18 14:19 metronidazole Allergy Unknown . Verified 09/17/18 14:19 moxifloxacin Allergy Unknown unnknown Verified 09/17/18 14:19 Penicillins Allergy Unknown nauseated Verified 09/17/18 14:19 lactose AdvReac Intermediate GI UPSET, Verified 09/17/18 14:19 DIARRHEA, INTESTINAL PAIN nitroglycerin AdvReac Intermediate SEVERE Verified 09/17/18 14:19 HYPOTENSION promethazine AdvReac Unknown hallucinati Verified 09/17/18 14:19 ons Home Medications Home Medications Medication Instructions Recorded Confirmed Type aspirin 81 mg PO DAILY 09/17/18 09/17/18 History carvedilol 9.375 mg PO BID 09/17/18 09/17/18 History duloxetine 60 mg PO DAILY 09/17/18 09/17/18 History lorazepam 1 mg PO BID 09/17/18 09/17/18 History ondansetron HCl 4 mg PO DIRECTED 09/17/18 09/17/18 History Past Med/Surg History Medical History Hypertension (Acute) Adrenal adenoma Anxiety and depression Broken heart syndrome Elevated LFTs History of CVA (cerebrovascular accident) without residual deficits History of syncope Hyperlipidemia Hyponatremia Migraine aura without headache Surgical History History of permanent cardiac pacemaker placement Family History Other Family history non-contributory Social History Preferred Language: Vietnamese Communication Ability: Effective Sample Shoe Inspector And Reworker Required: No Beliefs That Will Affect Care: Hindu 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 Current Living Situation: Alone Feels Safe at Home: Yes Safety Concerns: Feels Safe At This Time Smoking Status: Former smoker Do You Dip or Chew Tobacco: No Smoking End Date: at age 36 Hx Alcohol Use: Yes Alcohol type: beer, wine and hard liquor Alcohol Intake Frequency Comment: 3-4 days/week Hx Substance Use: Yes substance use type: marijuana Substance Use Type Other:: medical marijuana for PTS Last Used Substance Other:: a few weeks ago Review of Systems Review of Systems: All systems reviewed & are unremarkable except as noted in HPI & below Physical Exam Constitutional: WD/WN, vitals as above Eyes: PERRL, conjunctivae normal, anicteric sclerae ENMT: Ears: no hearing impairment and no external ear abnormality Nose: + external nose abnormality (Rhino Rocket's in place with small amount of oozing blood from the nostrils) Mouth: no lip abnormality Throat: no posterior oropharynx abnormality Neck: trachea midline, no thyromegaly Respiratory: normal respiratory effort, lungs clear to auscultation Cardiovascular: RRR, no murmur, no edema Gastrointestinal (Abdomen): normal bowel sounds, soft, nontender, no hepatosplenomegaly Musculoskeletal: Extremities: extremities normal to inspection; no cyanosis and no clubbing Skin: no rashes, warm and dry Neurologic: moves all extremities and awake; no focal motor deficits Psychiatric: A+Ox3, euthymic affect Results & Data Vital Signs (Past 12 Hours) Vital Signs Temp Pulse Pulse Resp BP BP Pulse Ox 09/17/18 17:38 66 96 09/17/18 17:32 200/110 H 09/17/18 15:30 80 201/110 H 98 09/17/18 15:28 80 17 205/110 H 99 09/17/18 14:09 36.6 C 59 L 18 175/89 H 94 Laboratory Results 09/17/18 09/17/18 09/17/18 Range/Units 16:48 16:48 16:48 WBC 6.48 (4.8-10.8) K/uL RBC 4.38 (4.2-5.4) M/uL Hgb 13.7 (12.0-16.0) g/dL Hct 39.4 (37-47) % MCV 90.0 (80-100) fL MCH 31.3 (25-34) pg MCHC 34.8 (32-36) g/dL RDW Std Deviation 44.7 (36.4-46.3) fL RDW Coeff of Manuel 13.5 (11.5-14.5) % Plt Count 315 (130-400) K/uL MPV 8.9 (7.4-10.4) fL Immature Gran % (Auto) 0.5 % Neut % (Auto) 67.6 % Lymph % (Auto) 17.0 % Gaston % (Auto) 10.2 % Eos % (Auto) 4.5 % Baso % (Auto) 0.2 % Immature Gran # (Auto) 0.03 H (0.00-0.02) K/uL Neut # (Auto) 4.39 (1.4-6.5) K/uL Lymph # (Auto) 1.10 L (1.2-3.4) K/uL Gaston # (Auto) 0.66 H (0.11-0.59) K/uL Eos # (Auto) 0.29 (0-0.5) K/uL Baso # (Auto) 0.01 (0-0.2) K/uL PT 10.2 (9.0-12.0) Seconds INR 1.0 (0.9-1.1) Sodium 131 L (136-145) mmol/L Potassium 3.9 (3.5-5.1) mmol/L Chloride 97 L (98-107) mmol/L Carbon Dioxide 27 (21-32) mmol/L Anion Gap 7.0 (3-11) BUN 14 (7-18) mg/dl Creatinine 0.61 (0.6-1.2) mg/dl Est Cr Clr Drug Dosing 72.5 ml/min Est GFR ( Amer) 108.7 Est GFR (Non-Af Amer) 93.8 BUN/Creatinine Ratio 22.4 H (10-20) Glucose 106 H (70-99) mg/dl Calcium 9.3 (8.5-10.1) mg/dl Total Bilirubin 0.7 (0.2-1) mg/dl AST 75 H (15-37) U/L ALT 121 H (12-78) U/L Alkaline Phosphatase 416 H (45-117) U/L Total Protein 7.8 (6.4-8.2) gm/dl Albumin 3.8 (3.4-5.0) gm/dl Globulin 4.0 (2.5-4.0) gm/dl Albumin/Globulin Ratio 1.0 (0.9-2) Diagnostic Findings No imaging studies Code Status & VTE Plan Code Status Full code VTE Prophylaxis Plan VTE Prophylaxis will be ordered: Yes Reason for no VTE drug order: Contraindicated
[2018-09-17] MEDS ORDERED: POLYETHYLENE (MIRALAX) 17 GM PACK PO PRN (18:57)
--- NOTE | 2018-09-17 20:03 | Emergency Department Note ---
Entered by Diaz Kwok acting as a scribe for Herber Serrano MD ED Visit Note The patient was seen and examined by myself in conjunction with the advanced care provider Elsa Espinoza PA-C. I agree with the history, physical and findings as documented. Please see the note for disposition and details. After further discussion with the patient I did remove the nasal packing and administered atomized intranasal lidocaine with epinephrine. The patient tolerated this procedure well. The patient only had scant bleeding to the left nares. Patient was admitted to the medicine service for blood pressure control. . The scribe's documentation has been prepared under my direction and personally reviewed by me in its entirety. I confirm that the note above accurately reflects all work, treatment, procedures, and medical decision making performed by me.
[2018-09-17] MEDS: CARVEDILOL 12.5 MG TAB PO SCH (20:17)
[2018-09-17] MEDS: LORazepam 1 MG TAB PO SCH (20:32)
[2018-09-17] MEDS: ONDANSETRON INJ 2 MG/ML 2 ML VIAL IV PRN (21:03)
[2018-09-17] MEDS: HydrALAZINE HCL 20 MG/ML VIAL IV PRN (21:09)
[2018-09-18] MEDS: ACETAMINOPHEN 325 MG TAB PO PRN ×5 (00:05→23:26)
[2018-09-18] MEDS: ONDANSETRON INJ 2 MG/ML 2 ML VIAL IV PRN ×3 (06:26→19:32)
[2018-09-18] MEDS: HydrALAZINE HCL 20 MG/ML VIAL IV PRN (06:33)
[2018-09-18 07:19] LABS: Basophils # (auto) 0.02 K/uL (0-0.2); Basophils % (auto) 0.4 %; Eosinophils # (auto) 0.22 K/uL (0-0.5); Eosinophils % (auto) 4.1 %; Hematocrit (blood only) 35.3 % (37-47); Hemoglobin 12.7 g/dL (12.0-16.0); Immature Granulocytes # (auto) 0.02 K/uL (0.00-0.02); Immature Granulocytes % (auto) 0.4 %; Lymphocytes # (auto) 2.17 K/uL (1.2-3.4); Lymphocytes % (auto) 40.5 %; Mean Corpuscular Volume 87.8 fL (80-100); Mean Platelet Volume 8.5 fL (7.4-10.4); Monocytes % (auto) 13.1 %; Neutrophils # (auto) 2.23 K/uL (1.4-6.5); Neutrophils % (auto) 41.5 %; Platelet Count 336 K/uL (130-400); RDW Coefficient of Variation 13.5 % (11.5-14.5); RDW Standard Deviation 43.5 fL (36.4-46.3); Red Blood Count 4.02 M/uL (4.2-5.4); White Blood Count 5.36 K/uL (4.8-10.8)
[2018-09-18] MEDS: CARVEDILOL 12.5 MG TAB PO SCH ×2 (07:23→20:36)
[2018-09-18] MEDS: DULOXETINE HCL 60 MG CAP PO SCH ×2 (07:23→07:27)
[2018-09-18] MEDS: LORazepam 1 MG TAB PO SCH ×2 (07:23→20:54)
[2018-09-18 07:53] LABS: Albumin Level 3.5 gm/dl (3.4-5.0); BUN Creatinine Ratio 15.3 (10-20); Bilirubin Direct 0.2 mg/dl (0-0.2); Creatinine Clr Calc Pharmacy 70.2 ml/min; Est GFR (African American) 107.6; Est GFR (Non-African American) 92.8; Potassium 3.4 mmol/L (3.5-5.1)
[2018-09-18 07:56] LABS: Bilirubin,Total 0.8 mg/dl (0.2-1); Total Protein 7.1 gm/dl (6.4-8.2)
[2018-09-18] MEDS ORDERED: POTASSIUM CHLORIDE 20 MEQ TABCR PO ONE (12:15)
--- NOTE | 2018-09-18 12:25 | Hospitalist Progress Note ---
Date of Service September 18, 2018 Assessment & Plan (1) Hypertensive urgency: With hypertensive crisis Blood pressures of 205/110 on admission with severe epistaxis. History of labile hypertension with previous work-up unrevealing for secondary causes. In the past she had better control with p.o. hydralazine but this was discontinued after she had a positive ALESSANDRA which was thought to be secondary to the hydralazine She reports she did not have good control with previous clonidine and had some sort of issue with losartan in the past as well. She has chronic hyponatremia and a diuretic might not be a good idea in her case. -Increased her carvedilol to 12.5 mg p.o. twice daily -labetalol given x 1 09/17 -IV hydralazine 10 mg IV every 8 hours as needed systolic blood pressure greater than 180 or diastolic blood pressure creatinine 110 as ordered -Consult her print shop helper for further recommendations - BPs have normalized (2) Severe epistaxis: Now stabilized after placement of Rhino Rocket's. After I saw her, the ER physician went back in and removed her Rhino Rocket's and sprayed aerosolized lidocaine with epinephrine which seemed to help due to patient having pain with Rhino Rocket CBC with hemoglobin stable from previous indicating no significant blood loss -Follow with outpatient ENT on Saturday -Some epistaxis today - patient complains of feeling blood running down her throat and nausea. Given Afrin in each nostril x2 and clamp -Holding baby aspirin daily (3) Hypertension: Labile as above -Coreg, IV hydralazine (4) Elevated LFTs: Significantly elevated LFTs specifically AST, ALT, and alkaline phosphatase in the past. GI has seen her and has done an extensive work-up. Thought was if she stopped her Wellbutrin and hydralazine and had no improvement, the next step would be a liver biopsy. It does not appear she is followed up with GI since that time. -LFTs here are stable to slightly improved from 1 year ago, nonetheless alkaline phosphatase remains in the 400s - trended down somewhat from admission -No need to repeat previous extensive work-up -Recommend follow-up with GI as an outpatient for possible liver biopsy (5) Hyperlipidemia: -Not currently on any medication for this (6) Migraine aura without headache: Has not been an issue for her for a long time Continues to have intermittent headache, requests only Tylenol (7) Hyponatremia: Chronic for many years as per patient, has been mild in the past, sodium is 131 here -Possibly SIADH secondary to psychiatric medications? There is also question in the previous of polydipsia. -Follow BMP (8) Broken heart syndrome: With a history of such several years ago but most recent echocardiogram as an outpatient was normal in 08/2018 (9) History of CVA (cerebrovascular accident) without residual deficits: Has a history of lacunar infarct seen on imaging and reported to her by her neurologist at [facility] -Holding aspirin for epistaxis as above -Likely secondary to severely uncontrolled blood pressure-working on control of this as above No current focal neurological signs or symptoms. (10) Anxiety and depression: Stable -Continue home Cymbalta and lorazepam (11) History of permanent cardiac pacemaker placement: For previous sick sinus syndrome and syncope -Follows routinely with cardiology (12) Adrenal adenoma: 2 cm and stable for many years, has followed with urology in the past Plasma metanephrines have been in the upper limits of normal in the past given labile blood pressure but was supposed to follow-up with urology 6 months from the last and it appears she did not -Recommend follow-up outpatient with urology (13) History of syncope: History of many years of neurocardiogenic syncope and dizziness which is now resolved with stopping Wellbutrin and after pacemaker placement -No current issues (14) DVT prophylaxis: SCDs, no chemical means due to severe epistaxis Full code Subjective Ms. Ferris complains of feeling blood running down the back of her throat and and nausea. Headache has improved but still there. Review of Systems Review of Systems: All systems reviewed & are unremarkable except as noted in HPI & below Physical Exam Physical Exam: General: no distress Eyes: normal inspection, PERLL Respiratory: chest non tender, clear to auscultation, normal breath sounds, no respiratory distress, no accessory muscle use Cardiac: regular rate and rhythm, no rub or gallop, no murmur, no edema, no jvd GI/: active bowel sounds, no abd pain or tenderness, soft, non distended Extremities: normal range of motion, normal strength, non tender Neuro/Psych: alert and oriented x 3, normal mood and affect Skin: normal color, dry Results & Data Vital Signs (Past 12 Hours) Vital Signs Temp Pulse Pulse Resp BP Pulse Ox 09/18/18 12:00 36.9 C 58 L 18 138/69 92 09/18/18 09:25 65 18 100/64 09/18/18 07:23 64 131/75 09/18/18 07:10 66 09/18/18 07:00 36.8 C 65 18 135/74 93 09/18/18 06:30 182/84 H 09/18/18 03:38 36.7 C 54 L 20 150/77 H 96
[2018-09-18] MEDS ORDERED: SILVER NITR/POTASSIUM NITRATE APPLICATOR EXT STA (12:32)
[2018-09-18] MEDS ORDERED: OXYMETAZOLINE 0.05% 30 ML BTL ONE (12:47)
--- NOTE | 2018-09-18 16:14 | Cardiology Consultation ---
Date of Consultation September 18, 2018 Assessment & Plan (1) Hypertensive urgency: Patient did have severely elevated blood pressure at the time of her presentation. She seems to have these readings on occasion. Unfortunately, she often checks her blood pressure when she is feeling poorly which may result in some elevation. She likely does require more intensive antihypertensive therapy. She has been on several agents in the past which caused side effects. She has been evaluated for secondary causes of high blood pressure primarily because she has an adrenal mass of unclear significance. She has had multiple measurements of urine metanephrines. She is undergone measurements of her renin and aldosterone as well. None of these were abnormal. Her blood pressures been much improved today. Currently she has been prescribed a higher dose of carvedilol. It would seem reasonable to continue with a single agent at a higher dose rather than add a second agent. She has had some difficulty with other agents in the past but if we needed a second antihypertensives for an CAMMIE inhibitor might be worthwhile. She previously was on lisinopril but cannot recall why it was discontinued. Alternatively a calcium channel haris such as amlodipine could be used. (2) Chest pressure: (3) Syncope and collapse: She had fairly refractory episodes of syncope for several years. However, with attention to a visual disturbance she seemed to have significant improvement in these episodes. She does have proprietary algorithms activated through her device for episodes of cardioinhibitory reflex, but her symptoms overall have been quite improved. (4) Cardiomyopathy: She has a history of Takotsubo cardiomyopathy. History of Present Illness Reason for Consultation: Hypertension Requesting Physician: Jamal Attending Physician: Mukul Mcdowell MD History of Present Illness The patient is a 68-year-old woman with a history of hypertension, stress cardiomyopathy and syncope who presented to [facility] with epistaxis. Patient states that she had 2 episodes of epistaxis over the past week. Yesterday she awoke with severe bleeding from her nose and contacted 911. In route she was noted to be severely hypertensive in the emergency room at [facility] she continued to be hypertensive. Her epistaxis was treated with Afrin and compression device. She was admitted primarily for control of her blood pressure. The patient states that she has noted some higher blood pressures recently. She will check her blood pressure when she feels a headache or is otherwise feeling poorly. During these episodes she will notice hypertension. She occasionally will take an extra half a dose of her prescribed carvedilol. In the past she had severe syncope. This was very frequent and difficult to control. However, recently her dizziness has been much better and she has not suffered syncope. She has not been very active recently due to increased depression. She also states that she is "not felt well" but has difficulty characterizing this statement. She was recently evaluated in the outpatient setting for symptoms of worsening exertional dyspnea. She also has occasional atypical chest pains. She does not describe sniffing orthopnea or paroxysmal nocturnal dyspnea. She has not had edema in her lower extremities but does complain of some swelling in her hands. Allergies Allergy/AdvReac Type Severity Reaction Status Date / Time soy Allergy Severe ANAPHYLAXIS Verified 09/17/18 14:19 metronidazole Allergy Unknown . Verified 09/17/18 14:19 moxifloxacin Allergy Unknown unnknown Verified 09/17/18 14:19 Penicillins Allergy Unknown nauseated Verified 09/17/18 14:19 lactose AdvReac Intermediate GI UPSET, Verified 09/17/18 14:19 DIARRHEA, INTESTINAL PAIN nitroglycerin AdvReac Intermediate SEVERE Verified 09/17/18 14:19 HYPOTENSION promethazine AdvReac Unknown hallucinati Verified 09/17/18 14:19 ons Home Medications Home Medications Medication Instructions Recorded Confirmed Type aspirin 81 mg PO DAILY 09/17/18 09/17/18 History duloxetine 60 mg PO DAILY 09/17/18 09/17/18 History lorazepam 1 mg PO BID 09/17/18 09/17/18 History ondansetron HCl 4 mg PO DIRECTED 09/17/18 09/17/18 History carvedilol 12.5 mg PO BID #60 tab 09/19/18 Rx Patient History Medical History Hypertension (Acute) Adrenal adenoma Anxiety and depression Broken heart syndrome Elevated LFTs History of CVA (cerebrovascular accident) without residual deficits History of syncope Hyperlipidemia Hyponatremia Migraine aura without headache Surgical History History of permanent cardiac pacemaker placement Family History Other Family history non-contributory Social History Preferred Language: Kyrgyz 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[employer] Appliances Required: No Beliefs That Will Affect Care: Holiness Holiness 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 Current Living Situation: Alone Feels Safe at Home: Yes Safety Concerns: Feels Safe At This Time Smoking Status: Former smoker Do You Dip or Chew Tobacco: No Smoking End Date: at age 36 Hx Alcohol Use: Yes Alcohol type: beer, wine and hard liquor Alcohol Intake Frequency Comment: 3-4 days/week Hx Substance Use: Yes substance use type: marijuana Substance Use Type Other:: medical marijuana for PTS Last Used Substance Other:: a few weeks ago Review of Systems Review of Systems: All systems reviewed & are unremarkable except as noted in HPI & below Physical Exam Physical Exam: She is alert and oriented x3. Mood affect appear normal. She answered all questions appropriately. HEENT: Sclerae are anicteric. Pupils are equal and reactive to light and accommodation. Extraocular movements were intact. Neuro: Cranial nerves intact Neck: Examination of the submandibular region did not reveal any significant lymphadenopathy. Carotids are palpable bilaterally and free of bruits on auscultation. There was no evidence of jugular venous distention. The thyroid was not enlarged. Lungs: Lungs are clear to auscultation bilaterally. There are no rales wheezes or rhonchi. She has normal respiratory effort without use of accessory muscles. There is normal pulmonary excursion. Cardiac: The rhythm was regular. S1 and S2 were normal. There are no murmurs on examination. The PMI was not markedly displaced on palpation. Abdomen: The abdomen was soft and nontender. Extremities: Patient has bilateral radial pulses that are equal in intensity. There is no evidence cyanosis or clubbing. There was no evidence of significant peripheral edema bilaterally. Skin: There are no rashes noted on examination today. Results & Data Vital Signs (Past 12 Hours) Vital Signs Temp Pulse Pulse Resp BP Pulse Ox 09/18/18 14:59 37 C 59 L 15 138/79 94 09/18/18 12:00 36.9 C 58 L 18 138/69 92 09/18/18 09:25 65 18 100/64 09/18/18 07:23 64 131/75 09/18/18 07:10 66 09/18/18 07:00 36.8 C 65 18 135/74 93 09/18/18 06:30 182/84 H Laboratory Results Abnormal Lab Results 09/17/18 09/17/18 09/17/18 16:48 16:48 16:48 WBC 6.48 RBC 4.38 Hgb 13.7 Hct 39.4 MCV 90.0 MCH 31.3 MCHC 34.8 RDW Std Deviation 44.7 RDW Coeff of Manuel 13.5 Plt Count 315 MPV 8.9 Immature Gran % (Auto) 0.5 Neut % (Auto) 67.6 Lymph % (Auto) 17.0 Mccracken % (Auto) 10.2 Eos % (Auto) 4.5 Baso % (Auto) 0.2 Immature Gran # (Auto) 0.03 H Neut # (Auto) 4.39 Lymph # (Auto) 1.10 L Mccracken # (Auto) 0.66 H Eos # (Auto) 0.29 Baso # (Auto) 0.01 PT 10.2 INR 1.0 Sodium 131 L Potassium 3.9 Chloride 97 L Carbon Dioxide 27 Anion Gap 7.0 BUN 14 Creatinine 0.61 Est Cr Clr Drug Dosing 72.5 Est GFR ( Amer) 108.7 Est GFR (Non-Af Amer) 93.8 BUN/Creatinine Ratio 22.4 H Glucose 106 H Calcium 9.3 Total Bilirubin 0.7 Direct Bilirubin AST 75 H ALT 121 H Alkaline Phosphatase 416 H Total Protein 7.8 Albumin 3.8 Globulin 4.0 Albumin/Globulin Ratio 1.0 09/18/18 09/18/18 06:58 06:58 WBC 5.36 RBC 4.02 L Hgb 12.7 Hct 35.3 L MCV 87.8 MCH 31.6 MCHC 36.0 RDW Std Deviation 43.5 RDW Coeff of Manuel 13.5 Plt Count 336 MPV 8.5 Immature Gran % (Auto) 0.4 Neut % (Auto) 41.5 Lymph % (Auto) 40.5 Mccracken % (Auto) 13.1 Eos % (Auto) 4.1 Baso % (Auto) 0.4 Immature Gran # (Auto) 0.02 Neut # (Auto) 2.23 Lymph # (Auto) 2.17 Mccracken # (Auto) 0.70 H Eos # (Auto) 0.22 Baso # (Auto) 0.02 PT INR Sodium 132 L Potassium 3.4 L Chloride 98 Carbon Dioxide 27 Anion Gap 7.0 BUN 10 Creatinine 0.63 Est Cr Clr Drug Dosing 70.2 Est GFR ( Amer) 107.6 Est GFR (Non-Af Amer) 92.8 BUN/Creatinine Ratio 15.3 Glucose 103 H Calcium 9.0 Total Bilirubin 0.8 Direct Bilirubin 0.2 AST 51 H ALT 95 H Alkaline Phosphatase 361 H Total Protein 7.1 Albumin 3.5 Globulin Albumin/Globulin Ratio
[2018-09-19] MEDS: ACETAMINOPHEN 325 MG TAB PO PRN (03:27)
[2018-09-19] MEDS: ONDANSETRON INJ 2 MG/ML 2 ML VIAL IV PRN ×4 (03:28→23:22)
[2018-09-19 06:21] LABS: Hematocrit (blood only) 35.8 % (37-47); Hemoglobin 12.4 g/dL (12.0-16.0); Mean Corpuscular Hgb Conc 34.6 g/dL (32-36); Mean Corpuscular Volume 89.7 fL (80-100); Mean Platelet Volume 8.8 fL (7.4-10.4); Platelet Count 280 K/uL (130-400); RDW Coefficient of Variation 13.5 % (11.5-14.5); RDW Standard Deviation 44.7 fL (36.4-46.3); Red Blood Count 3.99 M/uL (4.2-5.4); White Blood Count 3.95 K/uL (4.8-10.8)
[2018-09-19 07:05] LABS: BUN Creatinine Ratio 12.2 (10-20); Calcium 8.6 mg/dl (8.5-10.1); Creatinine Clr Calc Pharmacy 65.4 ml/min; Est GFR (African American) 105.4
[2018-09-19] MEDS: CARVEDILOL 12.5 MG TAB PO SCH ×2 (09:36→21:09)
[2018-09-19] MEDS: DULOXETINE HCL 60 MG CAP PO SCH ×2 (09:36→21:13)
[2018-09-19] MEDS: LORazepam 1 MG TAB PO SCH ×2 (09:36→20:05)
--- NOTE | 2018-09-19 16:49 | Discharge Summary ---
Date of Service September 19, 2018 Admission HPI Per Admitting Provider This patient is a 68-year-old female with a history of labile hypertension, anxiety disorder, lacunar CVAs, neurocardiogenic syncope, HTN, permanent pacemaker placement for sick sinus syndrome, migraines, hyperlipidemia, postconcussive syndrome, elevated LFTs, hyponatremia, and Takotsubo cardiomyopathy, who presents to the ER with a nosebleed that she could not get to stop. Blood was apparently gushing out of both nostrils at home and she started having a headache and felt a little bit lightheaded. In the ER, she had Afrin nasal spray applied and nasal clamp applied and later Rhino Rocket's inserted into both nasal passages. Her blood pressure was found to be severely elevated at 205/110. She denied chest pain or shortness of breath, no abdominal pain but did have some nausea thought to be secondary to blood dripping down the back of her throat. She did not vomit. She denied numbness or tingling or focal weakness. No visual changes. Review of her outpatient record and in reviewing with her history, reports that she has had labile hypertension for many years. She has had a work-up for pheochromocytoma which was negative, as well as renin and aldosterone levels which were normal. ENT was contacted by the ER provider and recommended outpatient follow-up for her epistaxis. She was given a one-time dose of Lopressor p.o. 50 mg in the ER with no improvement in her blood pressure. She will be admitted for hypertensive urgency. Admission Exam Per Admitting Provider This patient is a 68-year-old female with a history of labile hypertension, anxiety disorder, lacunar CVAs, neurocardiogenic syncope, HTN, permanent pacemaker placement for sick sinus syndrome, migraines, hyperlipidemia, postconcussive syndrome, elevated LFTs, hyponatremia, and Takotsubo cardiomyopathy, who presents to the ER with a nosebleed that she could not get to stop. Blood was apparently gushing out of both nostrils at home and she started having a headache and felt a little bit lightheaded. In the ER, she had Afrin nasal spray applied and nasal clamp applied and later Rhino Rocket's inserted into both nasal passages. Her blood pressure was found to be severely elevated at 205/110. She denied chest pain or shortness of breath, no abdominal pain but did have some nausea thought to be secondary to blood dripping down the back of her throat. She did not vomit. She denied numbness or tingling or focal weakness. No visual changes. Review of her outpatient record and in reviewing with her history, reports that she has had labile hypertension for many years. She has had a work-up for pheochromocytoma which was negative, as well as renin and aldosterone levels which were normal. ENT was contacted by the ER provider and recommended outpatient follow-up for her epistaxis. She was given a one-time dose of Lopressor p.o. 50 mg in the ER with no improvement in her blood pressure. Principal Diagnosis Hypertensive crisis Discharge Exam Constitutional WD/WN, vitals as above Respiratory normal respiratory effort, lungs clear to auscultation Cardiovascular RRR, no murmur, no edema Gastrointestinal (Abdomen) Inspection/Auscultation: abdomen normal to inspection and normal bowel sounds; abdomen not distended Musculoskeletal no cyanosis or clubbing, extremities motor strength 5/5 Skin no rashes, warm and dry Discharge Data Allergies Allergy/AdvReac Type Severity Reaction Status Date / Time soy Allergy Severe ANAPHYLAXIS Verified 09/17/18 14:19 metronidazole Allergy Unknown . 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 History of labile hypertension with previous work-up unrevealing for secondary causes. In the past she had better control with p.o. hydralazine but this was discontinued after she had a positive ALESSANDRA which was thought to be secondary to the hydralazine She reports she did not have good control with previous clonidine and had some sort of issue with losartan in the past as well. She has chronic hyponatremia and a diuretic might not be a good idea in her case. -Increased her carvedilol to 12.5 mg p.o. twice daily -labetalol given x 1 09/17 -IV hydralazine 10 mg IV every 8 hours as needed systolic blood pressure greater than 180 or diastolic blood pressure greater than 110 as ordered -Consulted cardiology who agree with increased carvedilol and suggest adding amlodipine or lisinopril in the future if she remains hypertensive. They do not have further recommendations for this admission and are ok with patient going home - Systolic BPs are at times elevated to the 170s but symptoms have improved. (2) Severe epistaxis: Resolved CBC with hemoglobin stable from indicating no significant blood loss -Follow with outpatient ENT after discharge -Some epistaxis 09/18- Given Afrin in each nostril x2 and clamp with resolution -Holding baby aspirin daily for another 24 hours (3) Hypertension: Labile as above -Coreg, IV hydralazine (4) Elevated LFTs: Significantly elevated LFTs specifically AST, ALT, and alkaline phosphatase in the past. GI has seen her and has done an extensive work-up. Thought was if she stopped her Wellbutrin and hydralazine and had no improvement, the next step would be a liver biopsy. It does not appear she is followed up with GI since that time. -LFTs here are stable to slightly improved from 1 year ago, nonetheless alkaline phosphatase remains in the 400s - LFTs have trended down a bit since admission -No need to repeat previous extensive work-up -Recommend follow-up with GI as an outpatient for possible liver biopsy (5) Hyperlipidemia: -Not currently on any medication for this (6) Migraine aura without headache: Has not been an issue for her for a long time Continues to have intermittent headache, requests only Tylenol (7) Hyponatremia: Chronic for many years as per patient, has been mild in the past, sodium is 131 here -Possibly SIADH secondary to psychiatric medications? There is also question in the previous of polydipsia. -follow outpatient - sodium appears to be at her baseline which is around 131 (8) Broken heart syndrome: With a history of such several years ago but most recent echocardiogram as an outpatient was normal in 08/2018 (9) History of CVA (cerebrovascular accident) without residual deficits: Has a history of lacunar infarct seen on imaging and reported to her by her neurologist at [facility] -Holding aspirin for epistaxis as above -Likely secondary to severely uncontrolled blood pressure-working on control of this as above No current focal neurological signs or symptoms. (10) Anxiety and depression: Stable -Continue home Cymbalta and lorazepam (11) History of permanent cardiac pacemaker placement: For previous sick sinus syndrome and syncope -Follows routinely with cardiology - 09/19 increased pacer rate due to low rate which patient was symptomatic of (12) Adrenal adenoma: 2 cm and stable for many years, has followed with urology in the past Plasma metanephrines have been in the upper limits of normal in the past given labile blood pressure but was supposed to follow-up with urology 6 months from the last and it appears she did not -Recommend follow-up outpatient with urology (13) History of syncope: History of many years of neurocardiogenic syncope and dizziness which is now resolved with stopping Wellbutrin and after pacemaker placement -No current issues (14) DVT prophylaxis: SCDs, no chemical means due to severe epistaxis Full code Dispo: home, able to ambulate halls and room independently. Could consider some pt/ot for further conditioning Total Time Total Time Spent Total Time Spent (In Minutes): greater than 30 minutes Discharge Plan Discharge Items Patient Disposition: Home - Self-Care Reason For Visit: HYPERTENSIVE URGENCY,EPISTAXIS Discharge Diagnosis: Hypertensive urgency, epistaxis Condition: Good Discharge Goals: Decrease discomfort Activity: Resume your previous activity Non-emergency contact: Primary Care Provider Call non-emergency contact if: your symptoms worsen Follow-up/Referrals: Jassi Walker MD [Primary Care Provider] - Diet: Heart Healthy Addtl Provider Instructions: Please hold your aspirin for another 24 hours to ensure that your nose has stopped bleeding. Your carvedilol has been increased. 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 Please follow up with ENT as well. Prescriptions: New carvedilol 12.5 mg Tablet 12.5 mg PO BID Qty: 60 RF: 1 Continued ondansetron HCl 4 mg tablet 4 mg PO DIRECTED RF: 0 lorazepam 0.5 mg tablet 1 mg PO BID RF: 0 duloxetine 60 mg capsule,delayed release(DR/EC) 60 mg PO DAILY RF: 0 aspirin 81 mg Tablet,Delayed Release (Dr/Ec) 81 mg PO DAILY RF: 0 Discontinued carvedilol 6.25 mg tablet 9.375 mg PO BID RF: 0 Stand-Alone Forms: [facility] Discharge Orders: Discharge Order (Routine); Ordered 09/19/18 Ordered By: Juana Drew Admission Data Admit Date/Time: 09/17/18 17:46 Attending Provider: Mukul Mcdowell Admit Provider: Joy Berry Primary Care Provider: Jassi Walker V. Other Providers: Jake Sykes ; Joy Berry Service: Telemetry Medical
--- NOTE | 2018-09-19 18:15 | Cardiology Progress Note ---
Date of Service September 19, 2018 Assessment & Plan (1) Hypertensive urgency: Her blood pressures improved yesterday evening. Throughout the course of today there is slightly elevated. However, I do believe she missed 1 dose of her antihypertensive due to concerns about bradycardia. Is still think is reasonable to continue her on a double dose of carvedilol. There should be no concerns regarding bradycardia as she does have a pacemaker. If her blood pressure continues to be elevated use of lisinopril which she has tolerated in the past or amlodipine could be tried. (2) Chest pressure: (3) Syncope and collapse: No dizziness or lightheadedness currently. Normally functioning dual- chamber permanent pacemaker. No recent syncope. (4) Cardiomyopathy: No clinical evidence of recurrence. Control of her blood pressure and use of beta-blockade is recommend I will be away from the hospital for the next 2 days. 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 Subjective This morning the patient claims to be feeling not well. This involved a sense of central chest pressure, left arm pain, headache, nausea and fatigue. The symptoms lasted a couple of hours and then resolved without any specific intervention. This afternoon the patient was ambulatory in the halls and actually feeling quite well. She denied significant dizziness or lightheadedness. No additional epistaxis. Review of Systems Review of Systems: Per HPI Physical Exam Physical Exam: She is alert and oriented x3. Mood affect appear normal. She answered all questions appropriately. HEENT: Sclerae are anicteric. Pupils are equal and reactive to light and accommodation. Extraocular movements were intact. Neuro: Cranial nerves intact Lungs: Lungs are clear to auscultation bilaterally. There are no rales wheezes or rhonchi. She has normal respiratory effort without use of accessory muscles. There is normal pulmonary excursion. Cardiac: The rhythm was regular. S1 and S2 were normal. There are no murmurs on examination. The PMI was not markedly displaced on palpation. Abdomen: The abdomen was soft and nontender. Results & Data Vital Signs (Past 12 Hours) Vital Signs Temp Pulse Pulse Resp BP Pulse Ox 09/19/18 15:46 60 09/19/18 15:02 36.9 C 60 18 170/77 H 95 09/19/18 12:06 36.8 C 68 18 157/88 H 92 09/19/18 09:35 60 09/19/18 08:41 64 166/101 H 09/19/18 07:50 54 L 09/19/18 07:31 36.7 C 55 L 20 160/80 H 96 Laboratory Results Abnormal Lab Results 09/19/18 09/19/18 05:48 05:48 WBC 3.95 L RBC 3.99 L Hgb 12.4 Hct 35.8 L MCV 89.7 MCH 31.1 MCHC 34.6 RDW Std Deviation 44.7 RDW Coeff of Manuel 13.5 Plt Count 280 MPV 8.8 Sodium 131 L Potassium 4.0 D Chloride 100 Carbon Dioxide 25 Anion Gap 6.0 BUN 8 Creatinine 0.67 Est Cr Clr Drug Dosing 65.4 Est GFR ( Amer) 105.4 Est GFR (Non-Af Amer) 91.0 BUN/Creatinine Ratio 12.2 Glucose 101 H Calcium 8.6 Diagnostic Findings I performed a device interrogation for her [employer] dual-chamber pacemaker. Normal longevity estimated at 3 years. Normal sensing on both the atrial and ventricular channels. Normal threshold. Her base rate was set at 50 which I increased to 60 beats per minute
--- NOTE | 2018-09-19 18:50 | Hospitalist Progress Note ---
Date of Service September 19, 2018 Assessment & Plan (1) Hypertensive urgency: With hypertensive crisis Blood pressures of 205/110 on admission with severe epistaxis. History of labile hypertension with previous work-up unrevealing for secondary causes. In the past she had better control with p.o. hydralazine but this was discontinued after she had a positive ALESSANDRA which was thought to be secondary to the hydralazine She reports she did not have good control with previous clonidine and had some sort of issue with losartan in the past as well. She has chronic hyponatremia and a diuretic might not be a good idea in her case. -Increased her carvedilol to 12.5 mg p.o. twice daily -labetalol given x 1 09/17 -IV hydralazine 10 mg IV every 8 hours as needed systolic blood pressure greater than 180 or diastolic blood pressure greater than 110 as ordered -Consulted cardiology who agree with increased carvedilol and suggest adding amlodipine or lisinopril in the future if she remains hypertensive. They do not have further recommendations for this admission and are ok with patient going home. However at the time of discharge patient became anxious and hypertensive. Will give hydralazine IV and start amlodipine for the morning. There appears to be a significant stress component to her blood pressure. Unfortunately, (2) Severe epistaxis: Resolved CBC with hemoglobin stable from indicating no significant blood loss -Follow with outpatient ENT after discharge -Some epistaxis 09/18- Given Afrin in each nostril x2 and clamp with resolution -Holding baby aspirin daily for another 24 hours (3) Hypertension: Labile as above -Coreg, IV hydralazine (4) Elevated LFTs: Significantly elevated LFTs specifically AST, ALT, and alkaline phosphatase in the past. GI has seen her and has done an extensive work-up. Thought was if she stopped her Wellbutrin and hydralazine and had no improvement, the next step would be a liver biopsy. It does not appear she is f ollowed up with GI since that time. -LFTs here are stable to slightly improved from 1 year ago, nonetheless alkaline phosphatase remains in the 400s - LFTs have trended down a bit since admission -No need to repeat previous extensive work-up -Recommend follow-up with GI as an outpatient for possible liver biopsy (5) Hyperlipidemia: -Not currently on any medication for this (6) Migraine aura without headache: Has not been an issue for her for a long time Continues to have intermittent headache, requests only Tylenol (7) Hyponatremia: Chronic for many years as per patient, has been mild in the past, sodium is 131 here -Possibly SIADH secondary to psychiatric medications? There is also question in the previous of polydipsia. 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 (10) Anxiety and depression: Stable -Continue home Cymbalta and lorazepam (11) History of permanent cardiac pacemaker placement: For previous sick sinus syndrome and syncope -Follows routinely with cardiology - 09/19 increased pacer rate due to low rate which patient was symptomatic of (12) Adrenal adenoma: 2 cm and stable for many years, has followed with urology in the past Plasma metanephrines have been in the upper limits of normal in the past given labile blood pressure but was supposed to follow-up with urology 6 months from the last and it appears she did not -Recommend follow-up outpatient with urology (13) History of syncope: History of many years of neurocardiogenic syncope and dizziness which is now resolved with stopping Wellbutrin and after pacemaker placement -No current issues (14) DVT prophylaxis: SCDs, no chemical means due to severe epistaxis Full code Dispo: home, able to ambulate halls and room independently. Could consider some pt/ot for further conditioning Subjective Ms. Ferris became sweaty and visibly anxious when I went bedside to discuss her discharge. Her blood pressure was 196/120. She continues to feel like blood is running down the back of her throat. Review of Systems Review of Systems: All systems reviewed & are unremarkable except as noted in HPI & below Physical Exam Physical Exam: General: no distress Eyes: normal inspection, PERLL Respiratory: chest non tender, clear to auscultation, normal breath sounds, no respiratory distress, no accessory muscle use Cardiac: regular rate and rhythm, no rub or gallop, no murmur, no edema, no jvd GI/: active bowel sounds, no abd pain or tenderness, soft, non distended Extremities: normal range of motion, normal strength, non tender Neuro/Psych: alert and oriented x 3, normal mood and affect Skin: normal color, dry Results & Data Vital Signs (Past 12 Hours) Vital Signs Temp Pulse Pulse Resp BP BP Pulse Ox 09/19/18 18:32 36.9 C 60 18 170/77 H 174/97 H 95 09/19/18 15:46 60 09/19/18 15:02 36.9 C 60 18 170/77 H 95 09/19/18 12:06 36.8 C 68 18 157/88 H 92 09/19/18 09:35 60 09/19/18 08:41 64 166/101 H 09/19/18 07:50 54 L 09/19/18 07:31 36.7 C 55 L 20 160/80 H 96
[2018-09-19] MEDS: HydrALAZINE HCL 20 MG/ML VIAL IV PRN (19:43)
[2018-09-19] MEDS ORDERED: TRAMADOL HCL 50 MG TABLET PO STA (23:56)
[2018-09-20 07:00] LABS: Hematocrit (blood only) 34.3 % (37-47); Hemoglobin 11.8 g/dL (12.0-16.0); Mean Corpuscular Hgb Conc 34.4 g/dL (32-36); Mean Corpuscular Volume 89.8 fL (80-100); Mean Platelet Volume 8.6 fL (7.4-10.4); Platelet Count 253 K/uL (130-400); RDW Coefficient of Variation 13.8 % (11.5-14.5); RDW Standard Deviation 45.6 fL (36.4-46.3); Red Blood Count 3.82 M/uL (4.2-5.4); White Blood Count 4.49 K/uL (4.8-10.8)
[2018-09-20 07:33] LABS: Calcium 8.7 mg/dl (8.5-10.1); Creatinine Clr Calc Pharmacy 68.2 ml/min; Est GFR (African American) 106.5; Est GFR (Non-African American) 91.9; Potassium 3.8 mmol/L (3.5-5.1)
[2018-09-20] MEDS: LORazepam 1 MG TAB PO SCH (08:16)
[2018-09-20] MEDS: DULOXETINE HCL 60 MG CAP PO SCH (08:16)
[2018-09-20] MEDS: CARVEDILOL 12.5 MG TAB PO SCH (08:16)
[2018-09-20] MEDS ORDERED: AMLODIPINE BESYLATE 5 MG TAB PO SCH (09:00)
[2018-09-20] MEDS: ONDANSETRON INJ 2 MG/ML 2 ML VIAL IV PRN (10:37)
== END 2018-09-20 10:57 | disposition home or self-care (01) | DRG 305 ==
LOC: ED 13:59 → 2W 17:46 → SUATTDRO 17:46 → 2W 18:42
DX: Z79.82 Long term (current) use of aspirin; I10 Essential (primary) hypertension; Z86.79 Personal history of other diseases of the circulatory system; E78.5 Hyperlipidemia, unspecified; Z88.8 Allergy status to other drugs, medicaments and biological substances; G43.909 Migraine, unspecified, not intractable, without status migrainosus; Z86.73 Personal history of transient ischemic attack (TIA), and cerebral infarction without residual deficits; Z79.899 Other long term (current) drug therapy; D35.00 Benign neoplasm of unspecified adrenal gland; Z87.891 Personal history of nicotine dependence; R04.0 Epistaxis; R74.8 Abnormal levels of other serum enzymes; E87.1 Hypo-osmolality and hyponatremia; Z95.0 Presence of cardiac pacemaker; Z88.1 Allergy status to other antibiotic agents; F41.8 Other specified anxiety disorders; Z88.0 Allergy status to penicillin; I16.0 Hypertensive urgency